=== PATIENT | male | born 1950 | race Caucasian/White ===

== ENCOUNTER 2022-08-19 20:51 | Inpatient (IN) | payer MEDICARE ==
[2022-08-19] MEDS ORDERED: SODIUM CHLORIDE 0.9% 1,000 ML IV ONE (21:36)
--- NOTE | 2022-08-19 21:46 | ED ---
General Adult HPI - General Chief complaint: Nausea/Vomiting/Diarrhea Stated complaint: Diarrhea Time Seen by Provider: 08/19/22 21:08 Source: patient Mode of arrival: EMS Limitations: physical limitation - History of Present Illness Initial comments: This is a 71-year-old male with a past medical history including congestive heart failure and baseline hypotension on Midodrine status post LifeVest as well as baseline atrial fibrillation on Eliquis presents emergency department via EMS for weakness. The patient stated that he has had nausea and vomiting and diarrhea over the last 5 days, with only one episode of nausea and vomiting but several episodes of diarrhea. The patient stated that he was weeks we came to the emergency department. The patient has not drank significant amount of water and feels as though he is dehydrated. The patient himself denied any shortness of breath or chest pain or any other acute symptoms at this time. The patient was resting in bed comfortably. The patient denied any recent sick contacts. - Related Data Home Medications Medication Instructions Recorded Confirmed Apixaban [Eliquis] 5 mg PO DIRECTED 08/19/22 08/19/22 Atorvastatin [Lipitor] 40 mg PO DAILY 08/19/22 08/19/22 Cetirizine HCl 10 mg PO DAILY 08/19/22 08/19/22 Cyanocobalamin [Vitamin B-12] 500 mcg PO DAILY 08/19/22 08/19/22 Furosemide [Lasix] 80 mg PO BID 08/19/22 08/19/22 Metoprolol Succinate (ER) [Toprol 50 mg PO BID 08/19/22 08/19/22 Xl] Midodrine HCl 7.5 mg PO TID 08/19/22 08/19/22 Montelukast [Singulair] 10 mg PO DAILY 08/19/22 08/19/22 Allergies Allergy/AdvReac Type Severity Reaction Status Date / Time morphine Allergy Unknown Verified 08/19/22 21:54 Review of Systems ROS Statement: Those systems with pertinent positive or pertinent negative responses have been documented in the HPI. ROS Other: All systems not noted in ROS Statement are negative. Past Medical History Past Medical History: Atrial Fibrillation, COPD, Diabetes Mellitus Additional Past Medical History / Comment(s): osteolmyelitis, SKIN CA History of Any Multi-Drug Resistant Organisms: None Reported Past Surgical History: Cholecystectomy Past Psychological History: No Psychological Hx Reported Smoking Status: Former smoker Past Alcohol Use History: None Reported Past Drug Use History: None Reported General Exam Limitations: no limitations General appearance: alert, in no apparent distress Head exam: Present: atraumatic, normocephalic, normal inspection Eye exam: Present: normal appearance, PERRL Pupils: Present: normal accommodation ENT exam: Present: normal exam, normal oropharynx, mucous membranes moist Neck exam: Present: normal inspection, full ROM Respiratory exam: Present: normal lung sounds bilaterally Cardiovascular Exam: Present: tachycardia, irregular rhythm, other (Lifevest in place) GI/Abdominal exam: Present: soft, normal bowel sounds Extremities exam: Present: normal inspection, full ROM Back exam: Present: normal inspection, full ROM Neurological exam: Present: alert, oriented X3, CN II-XII intact Psychiatric exam: Present: normal affect, normal mood Skin exam: Present: warm, dry Course Vital Signs 08/19/22 08/19/22 08/19/22 20:53 22:34 23:20 Temperature 97.4 F L Pulse Rate 128 H 123 H 100 Respiratory 18 18 16 Rate Blood Pressure 102/69 104/89 94/68 O2 Sat by Pulse 97 100 100 Oximetry EKG Findings - EKG Comments: EKG Findings:: An EKG was obtained and was interpreted by myself showing a rate of 129, QRS duration 143, QTC of 445. This EKG showed an atrial fibrillation with RVR. The patient does have a history of atrial fibrillation. There was however no ST segment elevation or depression that was noted however there was significant artifact secondary to the patient movement. Medical Decision Making - Medical Decision Making Was pt. sent in by a medical professional or institution (Dr. PA, CON[employer]YOR [employer]T INSTALLER, urgent care, hospital, or long-term...) When possible be specific @ -No Did you speak to anyone other than the patient for history (EMS, parent, family, police, friend...)? What history was obtained from this source @ -No Did you review nursing and triage notes (agree or disagree)? Why? @ -I reviewed and agree with nursing and triage notes Were old charts reviewed (outside hosp., previous admission, EMS record, old EKG, old radiological studies, urgent care reports/EKG's, long-term records)? Report findings @ -No old charts were reviewed Differential Diagnosis (chest pain, altered mental status, abdominal pain women, abdominal pain men, vaginal bleeding, weakness, fever, dyspnea, syncope, headache, dizziness, GI bleed, back pain, seizure, CVA, palpatations, mental health)? @ -Congestive heart failure exacerbation, ACS, dehydration EKG interpreted by me (3pts min.). @ -As above X-rays interpreted by me (1pt min.). @ -Chest x-ray was obtained and was interpreted by myself showing mild interstitial infiltrates and subsegmental atelectasis. There was no heart failure seen. CT interpreted by me (1pt min.). @ -None done U/S interpreted by me (1pt. min.). @ -None done What testing was considered but not performed or refused? (CT, X-rays, U/S, labs)? Why? @ -None What meds were considered but not given or refused? Why? @ -None Did you discuss the management of the patient with other professionals (stacy roberts i.e. , PA, CONVEYOR [employer]T INSTALLER, lab, RT, psych nurse, dialysis social worker, fabrics and material cutter, teacher, consumer loan officer, clinical case manager)? Give summary @ -Yes, admitting physician Was smoking cessation discussed for >3mins.? @ -No Was critical care preformed (if so, how long)? @ -Yes, see above Were there social determinants of health that impacted care today? How? (Homelessness, low income, unemployed, alcoholism, drug addiction, transportation, low edu. Level, literacy, decrease access to med. care, senior living, r ehab)? @ -No Was there de-escalation of care discussed even if they declined (Discuss DNR or withdrawal of care, Hospice)? DNR status @ -No What co-morbidities impacted this encounter? (DM, HTN, Smoking, COPD, CAD, Cancer, CVA, ARF, Chemo, Hep., AIDS, mental health diagnosis, sleep apnea, morbid obesity)? @ -Congestive heart failure with Lifevest, hypotension, atrial fibrillation Was patient admitted / discharged? Hospital course, mention meds given and route, prescriptions, significant lab abnormalities, going to OR and other pertinent info. @ -The patient was seen and evaluated in the emergency department. On physical exam, the patient was resting in bed without any acute distress. The patient did have intermittent tachycardia but was in nature fibrillation. The patient was not complaining of chest pain or shortness of breath. Laboratory workup inc luding a chest x-ray and EKG were obtained. Laboratory workup did show an elevated troponin as well as an elevated proBNP. The patient's potassium was low at 2.9 but was corrected in the emergency department. The patient did not have baseline laboratory workup as he is not seen at this hospital regularly. Because of the patient's significant past medical history in the setting of elevated troponin, the patient will be started on heparin and treated for an NSTEMI. The patient will be admitted for cardiology to evaluate and he was agreeable to this plan. The patient was admitted in stable condition. Undiagnosed new problem with uncertain prognosis? @ -No Drug Therapy requiring intensive monitoring for toxicity (Heparin, Nitro, Ins ulin, Cardizem)? @ -Yes, heparin Were any procedures done? @ -No Diagnosis/symptom? @ -NSTEMI Acute, or Chronic, or Acute on Chronic? @ -Acute Uncomplicated (without systemic symptoms) or Complicated (systemic symptoms)? @ -Complicated Side effects of treatment? @ -No Exacerbation, Progression, or Severe Exacerbation? @ -No Poses a threat to life or bodily function? How? (Chest pain, [place], [place], pneumonia, PE, COPD, DKA, ARF, appy, cholecystitis, CVA, Diverticulitis, Homicidal, Suicidal, threat to staff... and all critical care pts) @ -Yes, NSTEMI can lead to permanent cardiac damage and possible Diagnosis/symptom? @ -CHF exas Acute, or Chronic, or Acute on Chronic? @ -Acute on chronic Uncomplicated (without systemic symptoms) or Complicated (systemic symptoms)? @ -Complicated Side effects of treatment? @ -none Exacerbation, Progression, or Severe Exacerbation] @ -Exacerbation Poses a threat to life or bodily function? @ -Yes, worsening exacerbation can lead to permanent damage and possible . Diagnosis/symptom? @ -Hypokalemia Acute, or Chronic, or Acute on Chronic? @ -Acute Uncomplicated (without systemic symptoms) or Complicated (systemic symptoms)? @ -Uncomplicated Side effects of treatment? @ -none Exacerbation, Progression, or Severe Exacerbation] @ -no Poses a threat to life or bodily function? @ -Yes, abnormalities can cause cardiac dysrhythmias and possible - Lab Data Result diagrams: 08/19/22 21:38 08/19/22 21:38 Lab Results 08/19/22 08/19/22 08/19/22 Range/Units 21:38 21:38 21:38 WBC 7.8 (3.8-10.6) k/uL RBC 3.54 L (4.30-5.90) m/uL Hgb 10.3 L (13.0-17.5) gm/dL Hct 32.4 L (39.0-53.0) % MCV 91.3 (80.0-100.0) fL MCH 29.0 (25.0-35.0) pg MCHC 31.8 (31.0-37.0) g/dL RDW 17.3 H (11.5-15.5) % Plt Count 189 (150-450) k/uL MPV 9.1 Neutrophils % 87 % Lymphocytes % 6 % Monocytes % 6 % Eosinophils % 1 % Basophils % 0 % Neutrophils # 6.7 (1.3-7.7) k/uL Lymphocytes # 0.4 L (1.0-4.8) k/uL Monocytes # 0.4 (0-1.0) k/uL Eosinophils # 0.1 (0-0.7) k/uL Basophils # 0.0 (0-0.2) k/uL Anisocytosis Slight PT (9.0-12.0) sec INR (<1.2) APTT (22.0-30.0) sec Sodium 137 (137-145) mmol/L Potassium 2.9 L (3.5-5.1) mmol/L Chloride 102 (98-107) mmol/L Carbon Dioxide 27 (22-30) mmol/L Anion Gap 8 mmol/L BUN 79 H (9-20) mg/dL Creatinine 1.59 H (0.66-1.25) mg/dL Est GFR (CKD-EPI)AfAm 51 (>60 ml/min/1.73 sqM) Est GFR (CKD-EPI)NonAf 44 (>60 ml/min/1.73 sqM) Glucose 112 H (74-99) mg/dL Calcium 7.6 L (8.4-10.2) mg/dL Magnesium 1.6 (1.6-2.3) mg/dL Total Bilirubin 1.5 H (0.2-1.3) mg/dL AST 49 (17-59) U/L ALT 27 (4-49) U/L Alkaline Phosphatase 79 (38-126) U/L Troponin I 0.106 H* (0.000-0.034) ng/mL NT-Pro-B Natriuret Pep pg/mL Total Protein 5.9 L (6.3-8.2) g/dL Albumin 2.9 L (3.5-5.0) g/dL Lipase 67 (23-300) U/L 08/19/22 08/19/22 Range/Units 21:38 21:38 WBC (3.8-10.6) k/uL RBC (4.30-5.90) m/uL Hgb (13.0-17.5) gm/dL Hct (39.0-53.0) % MCV (80.0-100.0) fL MCH (25.0-35.0) pg MCHC (31.0-37.0) g/dL RDW (11.5-15.5) % Plt Count (150-450) k/uL MPV Neutrophils % % Lymphocytes % % Monocytes % % Eosinophils % % Basophils % % Neutrophils # (1.3-7.7) k/uL Lymphocytes # (1.0-4.8) k/uL Monocytes # (0-1.0) k/uL Eosinophils # (0-0.7) k/uL Basophils # (0-0.2) k/uL Anisocytosis PT 10.9 (9.0-12.0) sec INR 1.0 (<1.2) APTT 30.9 H (22.0-30.0) sec Sodium (137-145) mmol/L Potassium (3.5-5.1) mmol/L Chloride (98-107) mmol/L Carbon Dioxide (22-30) mmol/L Anion Gap mmol/L BUN (9-20) mg/dL Creatinine (0.66-1.25) mg/dL Est GFR (CKD-EPI)AfAm (>60 ml/min/1.73 sqM) Est GFR (CKD-EPI)NonAf (>60 ml/min/1.73 sqM) Glucose (74-99) mg/dL Calcium (8.4-10.2) mg/dL Magnesium (1.6-2.3) mg/dL Total Bilirubin (0.2-1.3) mg/dL AST (17-59) U/L ALT (4-49) U/L Alkaline Phosphatase (38-126) U/L Troponin I (0.000-0.034) ng/mL NT-Pro-B Natriuret Pep 76147 pg/mL Total Protein (6.3-8.2) g/dL Albumin (3.5-5.0) g/dL Lipase (23-300) U/L Critical Care Time Critical Care Time: Yes Total Critical Care Time: 35 Disposition Clinical Impression: NSTEMI (non-ST elevated myocardial infarction), Dehydration, CHF exacerbation, Hypokalemia Disposition: ADMITTED IP TO THIS [facility] Condition: Stable Is patient prescribed a controlled substance at d/c from ED?: No Referrals: Nonstaff,Physician [Primary Care Provider] - 1-2 days Time of Disposition: 23:00 Decision to Admit Reason: Admit from EC Decision Date: 08/20/22 Decision Time: 23:00
--- NOTE | 2022-08-19 22:41 | XR ---
EXAMINATION TYPE: XR chest 2V DATE OF EXAM: 08/19/2022 COMPARISON: NONE HISTORY: Weakness TECHNIQUE: 2 views FINDINGS: Heart is normal. There is no heart failure. There are chest leads. There is mild subsegment al atelectasis and interstitial density in the right lung. This is more in the right upper lobe. No p leural effusion. IMPRESSION: Mild interstitial infiltrate and subsegmental atelectasis. No heart failure seen.
[2022-08-19 23:22] LABS: Albumin 2.9 g/dL (3.5-5.0); Calcium 7.6 mg/dL (8.4-10.2); Magnesium 1.6 mg/dL (1.6-2.3); Total Bilirubin 1.5 mg/dL (0.2-1.3); Total Protein 5.9 g/dL (6.3-8.2)
[2022-08-19 23:24] LABS: Potassium 2.9 mmol/L (3.5-5.1)
[2022-08-19 23:25] LABS: Anisocytosis Slight; Basophils % (A) 0 %; Eosinophils # (A) 0.1 k/uL (0-0.7); Eosinophils % (A) 1 %; HCT 32.4 % (39.0-53.0); HGB 10.3 gm/dL (13.0-17.5); Lymphocytes # (A) 0.4 k/uL (1.0-4.8); Lymphocytes % (A) 6 %; MCHC 31.8 g/dL (31.0-37.0); MCV 91.3 fL (80.0-100.0); Mean Platelet Volume 9.1; Monocytes # (A) 0.4 k/uL (0-1.0); Monocytes % (A) 6 %; Neutrophils # (A) 6.7 k/uL (1.3-7.7); Neutrophils % (A) 87 %; Platelet Count 189 k/uL (150-450); RBC 3.54 m/uL (4.30-5.90); RDW 17.3 % (11.5-15.5); WBC 7.8 k/uL (3.8-10.6)
[2022-08-19 23:26] LABS: Partial Thromboplastin Time 30.9 sec (22.0-30.0); Prothrombin Time 10.9 sec (9.0-12.0)
[2022-08-20] MEDS ORDERED: HEPARIN SODIUM 1,000 UN/ML (10ML VL) IV PRN (00:13)
[2022-08-20] MEDS ORDERED: HEPARIN SOD,PORK IN 0.45% NACL 25,000 UNIT in 0.45% NACL 1 250ML.BAG IV SCH (00:15)
[2022-08-20] MEDS ORDERED: NALOXONE 0.4 MG/ML 1 ML VIAL IV PRN (00:21)
[2022-08-20] MEDS: POTASSIUM CHLORIDE 10 MEQ in WATER FOR INJECTION 1 100ML.BAG IVPB SCH ×4 (00:48→05:16)
--- NOTE | 2022-08-20 05:08 | P.HPIM ---
History of Present Illness H&P Date: 08/20/22 The patient is a 71-year-old male with a PMH of CHF (with LifeVest), A. fib on Eliquis, hypotension (on Midodrine), chronic L foot wounds, and hyperlipidemia who presents to the emergency room with complaints of diarrhea and generalized weakness. The patient reports that over the past 5 days, he has had very little oral intake due to watery diarrhea. Patient states that he is unable to tolerate even basic foods like crackers or any flavored drink. Reports that the diarrhea is nonbloody non-mucousy with no black tarry material. Denies any prior history of diarrhea. Denies experiencing abdominal pain but states that he does feel bloated prior to passing a bowel movement. States having multiple bowel movements initially 5 days ago but that he has managed to decrease them to one to twice a day as he is consuming very little food. Patient denied experiencing chest discomfort or shortness of breath. Also denied nausea or vomiting. Denies fever or chills. Laboratory evaluation in the emergency room was remarkable for proBNP 10,900, troponin 0.106, BUN 79, and creatinine 1.59. Review of systems: Pertinent positives and negatives as discussed in HPI, a complete review of systems was performed and all other systems are negative. Physical examination: Vital signs reviewed General: Thin chronically ill-appearing male, no distress, appears older than stated age, normal weight Derm: L foot lateral 2-3 cm stage 2 ulcer noted without drainage with dressings in place, warm Head: atraumatic, normocephalic, symmetric Eyes: EOMI, no lid lag, anicteric sclera, pupils equal round reactive to light ENT: Nose and ears atraumatic Neck: No cervical lymphadenopathy, trachea midline, supple Mouth: no lip lesion, mucus membranes dry Cardiovascular: S1S2 reg, no murmur, positive dorsalis pedis pulse bilateral, no edema, LifeVest in place Lungs: CTA bilateral, no rhonchi, no rales, no accessory muscle use Abdominal: soft, nontender to palpation, no guarding Ext: muscle strength 4 out of 5 in all 4 extremities grossly, no gross muscle atrophy, no contractures, Neuro: CN II-XI grossly intact, no gross focal neuro deficits Psych: Alert, oriented, appropriate affect Assessment: A. fib with RVR Elevated troponin Diarrhea Hypokalemia Kidney injury Imaging: Chest x-ray revealed mild interstitial infiltrate with no other acute abnormalities. EKG the emergency room revealed A. fib with RVR at 129 bpm. Data Review: Vital signs upon arrival at the emergency room were temperature 97.4F, pulse 128, BP 102/69, SpO2 97% on 3 L nasal cannula, and respiratory rate 18. Laboratory evaluation reviewed and remarkable for troponin 0.106, proBNP 10,900, BUN 79, creatinine 1.59, potassium 2.9, hemoglobin 10.3. Plan: Continue with heparin infusion for now Trend troponin Cardiology consulted Replace potassium and monitor Judicious use of IV fluids in setting of CHF history Obtain echocardiogram Monitor BMP Clear liquid diet DVT prophylaxis: Heparin infusion The patient is admitted with an anticipated greater than 2 midnight stay for evaluation of Afib with RVR CODE STATUS: Full Code Discussed with: Patient Anticipated discharge place: Home Past Medical History Past Medical History: Atrial Fibrillation, COPD, Diabetes Mellitus, Deep Vein Thrombosis (DVT), Pulmonary Embolus (PE) Additional Past Medical History / Comment(s): osteolmyelitis, SKIN CA; urinary retention History of Any Multi-Drug Resistant Organisms: None Reported Past Surgical History: Cholecystectomy Additional Past Surgical History / Comment(s): Lumbar back surgery Past Anesthesia/Blood Transfusion Reactions: Previous Problems w/ Anesthesia Additional Past Anesthesia/Blood Transfusion Reaction / Comment(s): "Hard to wake up" Past Psychological History: No Psychological Hx Reported Smoking Status: Former smoker Past Alcohol Use History: None Reported Past Drug Use History: None Reported - Past Family History Father Family Medical History: Diabetes Mellitus Medications and Allergies Home Medications Medication Instructions Recorded Confirmed Type Apixaban [Eliquis] 5 mg PO DIRECTED 08/19/22 08/19/22 History Atorvastatin [Lipitor] 40 mg PO DAILY 08/19/22 08/19/22 History Cetirizine HCl 10 mg PO DAILY 08/19/22 08/19/22 History Cyanocobalamin [Vitamin B-12] 500 mcg PO DAILY 08/19/22 08/19/22 History Furosemide [Lasix] 80 mg PO BID 08/19/22 08/19/22 History Metoprolol Succinate (ER) [Toprol 50 mg PO BID 08/19/22 08/19/22 History Xl] Midodrine HCl 7.5 mg PO TID 08/19/22 08/19/22 History Montelukast [Singulair] 10 mg PO DAILY 08/19/22 08/19/22 History Allergies Allergy/AdvReac Type Severity Reaction Status Date / Time morphine Allergy Unknown Verified 08/19/22 21:54 Physical Exam Vitals: Vital Signs Temp Pulse Pulse Resp BP BP Pulse Ox 08/20/22 01:18 97.4 F L 125 H 14 110/68 100 08/20/22 00:59 105 H 18 102/77 100 08/19/22 23:20 100 16 94/68 100 08/19/22 22:34 123 H 18 104/89 100 08/19/22 20:53 97.4 F L 128 H 18 102/69 97 Intake and Output 08/19/22 08/19/22 08/20/22 14:59 22:59 07:59 Other: Weight 68.039 kg 68.039 kg Results CBC & Chem 7: 08/19/22 21:38 08/19/22 21:38 Labs: Abnormal Lab Results - Last 24 Hours (Table) 08/19/22 08/19/22 08/19/22 Range/Units 21:38 21:38 21:38 RBC 3.54 L (4.30-5.90) m/uL Hgb 10.3 L (13.0-17.5) gm/dL Hct 32.4 L (39.0-53.0) % RDW 17.3 H (11.5-15.5) % Lymphocytes # 0.4 L (1.0-4.8) k/uL APTT (22.0-30.0) sec Potassium 2.9 L (3.5-5.1) mmol/L BUN 79 H (9-20) mg/dL Creatinine 1.59 H (0.66-1.25) mg/dL Glucose 112 H (74-99) mg/dL Calcium 7.6 L (8.4-10.2) mg/dL Total Bilirubin 1.5 H (0.2-1.3) mg/dL Troponin I 0.106 H* (0.000-0.034) ng/mL Total Protein 5.9 L (6.3-8.2) g/dL Albumin 2.9 L (3.5-5.0) g/dL 08/19/22 Range/Units 21:38 RBC (4.30-5.90) m/uL Hgb (13.0-17.5) gm/dL Hct (39.0-53.0) % RDW (11.5-15.5) % Lymphocytes # (1.0-4.8) k/uL APTT 30.9 H (22.0-30.0) sec Potassium (3.5-5.1) mmol/L BUN (9-20) mg/dL Creatinine (0.66-1.25) mg/dL Glucose (74-99) mg/dL Calcium (8.4-10.2) mg/dL Total Bilirubin (0.2-1.3) mg/dL Troponin I (0.000-0.034) ng/mL Total Protein (6.3-8.2) g/dL Albumin (3.5-5.0) g/dL Thrombosis Risk Factor Assmnt - Choose All That Apply Any of the Below Risk Factors Present?: No Other Risk Factors: Yes Each Risk Factor Represents 2 Points: Age 61-74 years Each Risk Factor Represents 3 Points: History of DVT/PE Other congenital or acquired thrombophilia - If yes, enter type in comment: No Thrombosis Risk Factor Assessment Total Risk Factor Score: 5 Thrombosis Risk Factor Assessment Level: High Risk
[2022-08-20 05:30] LABS: Calcium 7.8 mg/dL (8.4-10.2); Potassium 3.1 mmol/L (3.5-5.1)
[2022-08-20 06:56] LABS: Glucose,Whole Blood 97 mg/dL (70-110)
[2022-08-20] MEDS: INSULIN ASPART (NovoLOG) 100 UNIT/ML VIAL SQ SCH ×4 (06:57→21:33)
[2022-08-20] MEDS: MONTELUKAST 10 MG TAB PO SCH (08:59)
[2022-08-20] MEDS: FUROSEMIDE 80 MG TAB PO SCH ×2 (08:59→21:36)
[2022-08-20] MEDS: CYANOCOBALAMIN 500 MCG TAB PO SCH (08:59)
[2022-08-20] MEDS: MIDODRINE 5 MG TAB PO SCH ×3 (08:59→21:36)
[2022-08-20] MEDS: ATORVASTATIN 40 MG TAB PO SCH (08:59)
[2022-08-20] MEDS ORDERED: METOPROLOL SUCCINATE (ER) 50 MG TAB.ER.24H PO SCH (09:00)
[2022-08-20] MEDS: POTASSIUM CHLORIDE ER 20 MEQ TAB.ER PO SCH ×2 (10:12→12:28)
--- NOTE | 2022-08-20 10:32 | P.CRDCN ---
History of Present Illness Consult date: 08/20/22 History of present illness: History of Present Illness: The patient is a 71-year-old male with known history of cardiomyopathy, appears to be nonischemic, persistent atrial fibrillation, followed at [facility], has a life vest and is being evaluated to undergo ICD implantation who presented with symptoms of diarrhea for about 7 days, worsening fatigue and lack of energy. He had one episode of nausea and vomiting. He denies any GI bleeding. He has no chest discomfort, palpitation or change in his breathing status. According to him he had no obstructive disease by cardiac catheterization although he is vague about his history. It is unclear if the at rial fibrillation has been going on for a time. On presentation he was in atrial fibrillation with rapid ventricular response. He had minimal elevation of the troponin. He's feeling better this morning. He has a known history of nonhealing ulcer on the left foot. He has a prior history of smoking and hyperlipidemia and diabetes. His blood pressure is on the low side. Medications: Singulair 10 mg daily, Toprol-XL 50 mg twice a day, Lipitor 40 mg daily, midodrine 7.5 mg 3 times a day, Lasix 80 mg twice a day,Eliquis 5 mg twice a day Review of Systems: Respiratory: Has a history of chronic dyspnea on exertion but no recent wheezing, cough GI: Mild nausea or vomiting . He has diarrhea for the last 7 days. No history of peptic ulcer disease. No recent GI bleed. : No hematuria or dysuria. Nervous System: No stroke or seizure. Physical Examination: 71-year-old male, alert oriented appears to be older than stated age,Blood pressure 102/60, Heart rate 110-120 Head: Normocephalic. Eyes: Sclerae nonicteric. Neck: Good carotid upstroke, no bruit, no jugular venous distention. Lungs: Clear to auscultation. Heart: Irregular rate and rhythm, S1-S2, no S3, no rub. Systolic murmur at the apex Abdomen: Soft nontender, positive bowel sounds no organomegaly. Extremities: No edema, decrease distal pulses. Dressing on the left foot Labs: Troponin 0.106, 0.108, potassium on admission 2.9 up to 3.2 today. BUN 69, creatinine 1.42. NT proBNP 10,900. Hemoglobin 10.3. Chest x-ray with no infiltrate EKG: Atrial fibrillation with nonspecific ST-T wave changes Impression: 1. Diarrhea with possible dehydration, etiology unclear, workup in progress 2. History of cardiomyopathy, appears to be nonischemic. Patient has LifeVest and has been followed at [facility] 3. Chronic permanent atrial fibrillation, anticoagulated with episode of rapid ventricle response could be worsened by the diarrhea 4. Troponin elevation, representing type II event, no evidence of acute cor onary syndrome 5. Abnormal renal function, duration unknown 6. History of diabetes 7. History of hyperlipidemia Plan: 1. Stop IV heparin and start oral anticoagulation 2. Increase beta carlitos 3. Add Farxiga 10 mg daily 4. Obtain an echocardiogram with Doppler 5. Follow renal functions 6. Obtain records from [facility] 7. Depending on his progress further recommendations will be made, thank you for this consult we will follow with you Past Medical History Past Medical History: Atrial Fibrillation, COPD, Diabetes Mellitus, Deep Vein Th rombosis (DVT), Pulmonary Embolus (PE) Additional Past Medical History / Comment(s): osteolmyelitis, SKIN CA; urinary retention History of Any Multi-Drug Resistant Organisms: None Reported Past Surgical History: Cholecystectomy Additional Past Surgical History / Comment(s): Lumbar back surgery Past Anesthesia/Blood Transfusion Reactions: Previous Problems w/ Anesthesia Additional Past Anesthesia/Blood Transfusion Reaction / Comment(s): "Hard to w nicolas up" Past Psychological History: No Psychological Hx Reported Smoking Status: Former smoker Past Alcohol Use History: None Reported Past Drug Use History: None Reported - Past Family History Father Family Medical History: Diabetes Mellitus Medications and Allergies Home Medications Medication Instructions Recorded Confirmed Type Apixaban [Eliquis] 5 mg PO DIRECTED 08/19/22 08/19/22 History Atorvastatin [Lipitor] 40 mg PO DAILY 08/19/22 08/19/22 History Cetirizine HCl 10 mg PO DAILY 08/19/22 08/19/22 History Cyanocobalamin [Vitamin B-12] 500 mcg PO DAILY 08/19/22 08/19/22 History Furosemide [Lasix] 80 mg PO BID 08/19/22 08/19/22 History Metoprolol Succinate (ER) [Toprol 50 mg PO BID 08/19/22 08/19/22 History Xl] Midodrine HCl 7.5 mg PO TID 08/19/22 08/19/22 History Montelukast [Singulair] 10 mg PO DAILY 08/19/22 08/19/22 History Allergies Allergy/AdvReac Type Severity Reaction Status Date / Time morphine Allergy Unknown Verified 08/19/22 21:54 Physical Exam Vitals: Vital Signs Temp Pulse Pulse Resp BP BP Pulse Ox 08/20/22 08:09 99 08/20/22 08:00 97.7 F 126 H 18 91/70 96 08/20/22 04:00 97.8 F 116 H 14 102/61 99 08/20/22 01:18 97.4 F L 125 H 14 110/68 100 08/20/22 00:59 105 H 18 102/77 100 08/19/22 23:20 100 16 94/68 100 08/19/22 22:34 123 H 18 104/89 100 08/19/22 20:53 97.4 F L 128 H 18 102/69 97 Intake and Output 08/19/22 08/20/22 08/20/22 21:59 06:59 14:59 Intake Total 162.054 Output Total Balance 162.054 Intake: Intake, IV Titration 44.054 Amount Heparin Sod,Pork in 0.45% 44.054 NaCl 25,000 unit In 0.45 % NaCl 1 250ml.bag @ 18 UNITS/KG/HR 12.247 mls/hr IV .[id number] [facility] Rx#: [id number] Oral 118 Output: Urine Other: Voiding Method Indwelling Catheter # Bowel Movements Weight Results 08/19/22 21:38 08/20/22 07:43 Cardiac Enzymes 08/19/22 08/19/22 08/20/22 Range/Units 21:38 21:38 05:38 AST 49 (17-59) U/L Troponin I 0.106 H* 0.108 H* (0.000-0.034) ng/mL Coagulation 08/19/22 08/20/22 08/20/22 Range/Units 21:38 04:28 07:43 PT 10.9 (9.0-12.0) sec APTT 30.9 H 88.2 H 135.3 H* (22.0-30.0) sec CBC 08/19/22 Range/Units 21:38 WBC 7.8 (3.8-10.6) k/uL RBC 3.54 L (4.30-5.90) m/uL Hgb 10.3 L (13.0-17.5) gm/dL Hct 32.4 L (39.0-53.0) % Plt Count 189 (150-450) k/uL Comprehensive Metabolic Panel 08/19/22 08/20/22 08/20/22 Range/Units 21:38 04:28 07:43 Sodium 137 140 (137-145) mmol/L Potassium 2.9 L 3.1 L 3.2 L (3.5-5.1) mmol/L Chloride 102 108 H (98-107) mmol/L Carbon Dioxide 27 22 (22-30) mmol/L BUN 79 H 69 H (9-20) mg/dL Creatinine 1.59 H 1.42 H (0.66-1.25) mg/dL Glucose 112 H 81 (74-99) mg/dL Calcium 7.6 L 7.8 L (8.4-10.2) mg/dL AST 49 (17-59) U/L ALT 27 (4-49) U/L Alkaline Phosphatase 79 (38-126) U/L Total Protein 5.9 L (6.3-8.2) g/dL Albumin 2.9 L (3.5-5.0) g/dL Current Medications Generic Name Dose Route Start Last Admin Trade Name Freq PRN Reason Stop Dose Admin Apixaban 5 mg 08/20/22 10:30 Apixaban 5 Mg Tab PO BID [facility] Protocol Atorvastatin Calcium 40 mg 08/20/22 09:00 08/20/22 08:59 Atorvastatin 40 Mg Tab PO 40 mg DAILY [facility] Administration Cyanocobalamin 500 mcg 08/20/22 09:00 08/20/22 08:59 Cyanocobalamin 500 Mcg Tab PO 500 mcg DAILY [facility] Administration Dapagliflozin 10 mg 08/20/22 10:30 Dapagliflozin Propanediol 10 Mg Tablet PO DAILY [facility] Furosemide 80 mg 08/20/22 09:00 08/20/22 08:59 Furosemide 80 Mg Tab PO 80 mg BID [facility] Administration Insulin Aspart 0 unit 08/20/22 07:30 08/20/22 06:57 Insulin Aspart (Novolog) 100 Unit/Ml Vial SQ Not Given ACHS [facility] Protocol Metoprolol Succinate 50 mg 08/20/22 16:00 Metoprolol Succinate (Er) 50 Mg Tab.Er.24h PO TID [facility] Midodrine 7.5 mg 08/20/22 09:00 08/20/22 08:59 Midodrine 5 Mg Tab PO 7.5 mg TID [facility] Administration Montelukast Sodium 10 mg 08/20/22 09:00 08/20/22 08:59 Montelukast 10 Mg Tab PO 10 mg DAILY [facility] Administration Naloxone HCl 0.2 mg 08/20/22 00:21 Naloxone 0.4 Mg/Ml 1 Ml Vial IV Q2M PRN Opioid Reversal Potassium Chloride 40 meq 08/20/22 10:00 08/20/22 10:12 Potassium Chloride Er 20 Meq Tab.Er PO 08/20/22 12:01 40 meq Q2HR [facility] Administration Intake and Output 08/19/22 08/20/22 08/20/22 21:59 06:59 14:59 Intake Total 162.054 Output Total Balance 162.054 Intake: Intake, IV Titration 44.054 Amount Heparin Sod,Pork in 0.45% 44.054 NaCl 25,000 unit In 0.45 % NaCl 1 250ml.bag @ 18 UNITS/KG/HR 12.247 mls/hr IV .[id number] [facility] Rx#: [id number] Oral 118 Output: Urine Other: Voiding Method Indwelling Catheter # Bowel Movements Weight 08/19/22 21:38 08/20/22 07:43
[2022-08-20] MEDS: APIXABAN 5 MG TAB PO SCH ×2 (10:50→21:36)
[2022-08-20] MEDS: DAPAGLIFLOZIN PROPANEDIOL 10 MG TABLET PO SCH (10:50)
[2022-08-20 12:30] LABS: Glucose,Whole Blood 96 mg/dL (70-110)
[2022-08-20] MEDS: METOPROLOL SUCCINATE (ER) 50 MG TAB.ER.24H PO SCH ×2 (15:53→21:36)
[2022-08-20 16:25] LABS: Glucose,Whole Blood 121 mg/dL (70-110)
[2022-08-20 20:57] LABS: Glucose,Whole Blood 135 mg/dL (70-110)
[2022-08-21 06:02] LABS: Glucose,Whole Blood 139 mg/dL (70-110)
[2022-08-21] MEDS: INSULIN ASPART (NovoLOG) 100 UNIT/ML VIAL SQ SCH ×4 (06:09→21:59)
[2022-08-21 06:22] LABS: Anisocytosis Slight; Basophils % (A) 1 %; Eosinophils # (A) 0.1 k/uL (0-0.7); Eosinophils % (A) 1 %; HCT 36.7 % (39.0-53.0); HGB 11.5 gm/dL (13.0-17.5); Hypochromasia Slight; Lymphocytes # (A) 0.7 k/uL (1.0-4.8); Lymphocytes % (A) 9 %; MCH 28.4 pg (25.0-35.0); MCHC 31.3 g/dL (31.0-37.0); MCV 90.9 fL (80.0-100.0); Mean Platelet Volume 8.3; Monocytes # (A) 0.4 k/uL (0-1.0); Monocytes % (A) 5 %; Neutrophils # (A) 6.7 k/uL (1.3-7.7); Neutrophils % (A) 83 %; Platelet Count 219 k/uL (150-450); RBC 4.03 m/uL (4.30-5.90); RDW 17.4 % (11.5-15.5)
[2022-08-21 06:47] LABS: Calcium 8.1 mg/dL (8.4-10.2); Potassium 4.5 mmol/L (3.5-5.1)
[2022-08-21] MEDS: APIXABAN 5 MG TAB PO SCH ×2 (08:21→21:58)
[2022-08-21] MEDS: METOPROLOL SUCCINATE (ER) 50 MG TAB.ER.24H PO SCH (08:21)
[2022-08-21] MEDS: MIDODRINE 5 MG TAB PO SCH ×3 (08:21→16:36)
[2022-08-21] MEDS: DAPAGLIFLOZIN PROPANEDIOL 10 MG TABLET PO SCH (08:21)
[2022-08-21] MEDS: FUROSEMIDE 80 MG TAB PO SCH ×2 (08:21→21:58)
[2022-08-21] MEDS: ATORVASTATIN 40 MG TAB PO SCH (08:21)
[2022-08-21] MEDS: MONTELUKAST 10 MG TAB PO SCH (08:22)
[2022-08-21] MEDS: CYANOCOBALAMIN 500 MCG TAB PO SCH (08:22)
[2022-08-21] MEDS: METOPROLOL TARTRATE 50 MG TAB PO SCH ×3 (10:13→22:00)
[2022-08-21] MEDS: SPIRONOLACTONE 25 MG TAB PO SCH (10:13)
--- NOTE | 2022-08-21 10:17 | P.PN ---
Subjective Progress Note Date: 08/21/22 Patient reports breathing is improved today. A. fib is under better control. Getting an echo during my assessment. Diarrhea is better controlled. Gen: awake, alert HEENT: normocephalic, atraumatic, good hearing acuity, moist mucous membranes Resp: good air exchange, breathing comfortably with no accessory muscle use CVS: good distal perfusion x 4, GI: soft, NTTP, ND : no SPT, no CVAT, hatfield catheter is present MSK: no pitting edema, no clubbing Neuro: non-focal, moving all extremities Psych: cooperative, euthymic mood Hospital course: The patient is a 71-year-old male with a PMH of CHF (with LifeVest), A. fib on Eliquis, hypotension (on Midodrine), chronic L foot wounds, and hyperlipidemia who presented to the emergency room with complaints of diarrhea and generalized weakness. Vital signs upon arrival at the emergency room were temperature 97.4F, pulse 128, BP 102/69, SpO2 97% on 3 L nasal cannula, and respiratory rate 18. Laboratory evaluation reviewed and remarkable for troponin 0.106, proBNP 10,900, BUN 79, creatinine 1.59, potassium 2.9, hemoglobin 10.3. Chest x- ray revealed mild interstitial infiltrate with no other acute abnormalities. EKG the emergency room revealed A. fib with RVR at 129 bpm. case was discussed with emergency room physician and decision was made to admit the patient for further evaluation. Patient was seen in consultation with cardiology. Assessment: A. fib with RVR Elevated troponin Diarrhea Hypokalemia Kidney injury Plan: Patient is afebrile, 113/74, heart rate 119, 94% on 2 L nasal cannula, which is his baseline oxygen requirement. CBC today shows anemia down to 11.5, otherwise on markable. Chemistries show chloride of 109, bicarb of 20, BUN of 51, creatinine 1.51. BNP is 13,700, increased from 10,000 Blood sugars have ranged between 121-139 Cardiology note reviewed, they agree with diuretics, obtaining an echo, rate control strategy Heparin drip was discontinued and transitioned to Apixiban 5 mg by mouth twice a day Continue metoprolol 50 mg 3 times a day Continue atorvastatin 40 mg daily Start farxiga 10 mg daily Continue spironolactone 12.5 g daily The patient is admitted with an anticipated greater than 2 midnight stay for evaluation of Afib with RVR CODE STATUS: Full Code Discussed with: Patient Anticipated discharge place: Home Objective - Vital Signs Vital signs: Vital Signs Temp 97.5 F L 08/21/22 08:11 Pulse 119 H 08/21/22 09:32 Resp 18 08/21/22 09:32 BP 113/74 08/21/22 08:11 Pulse Ox 95 08/21/22 08:57 FiO2 Intake & Output 08/20/22 08/21/22 08/21/22 18:59 06:59 18:59 Intake Total 610.054 200 220 Output Total 750 400 500 Balance -139.946 -200 -280 Weight 62 kg Intake: Intake, IV Titration 44.054 Amount Heparin Sod,Pork in 0.45% 44.054 NaCl 25,000 unit In 0.45 % NaCl 1 250ml.bag @ 18 UNITS/KG/HR 12.247 mls/hr IV .[id number] [facility] Rx#: [id number] Oral 566 200 220 Output: Urine 750 400 500 Other: Voiding Method Indwelling Catheter Indwelling Catheter Indwelling Catheter - Labs CBC & Chem 7: 08/21/22 05:53 08/21/22 05:53 Labs: Abnormal Lab Results - Last 24 Hours (Table) 08/20/22 08/20/22 08/20/22 Range/Units 09:56 15:58 16:23 RBC (4.30-5.90) m/uL Hgb (13.0-17.5) gm/dL Hct (39.0-53.0) % RDW (11.5-15.5) % Lymphocytes # (1.0-4.8) k/uL APTT 30.9 H (22.0-30.0) sec Chloride (98-107) mmol/L Carbon Dioxide (22-30) mmol/L BUN (9-20) mg/dL Creatinine (0.66-1.25) mg/dL Glucose (74-99) mg/dL POC Glucose (mg/dL) 121 H (70-110) mg/dL Calcium (8.4-10.2) mg/dL Troponin I 0.102 H* (0.000-0.034) ng/mL 08/20/22 08/21/22 08/21/22 Range/Units 20:55 05:53 05:53 RBC 4.03 L (4.30-5.90) m/uL Hgb 11.5 L (13.0-17.5) gm/dL Hct 36.7 L (39.0-53.0) % RDW 17.4 H (11.5-15.5) % Lymphocytes # 0.7 L (1.0-4.8) k/uL APTT (22.0-30.0) sec Chloride 109 H (98-107) mmol/L Carbon Dioxide 20 L (22-30) mmol/L BUN 51 H (9-20) mg/dL Creatinine 1.51 H (0.66-1.25) mg/dL Glucose 123 H (74-99) mg/dL POC Glucose (mg/dL) 135 H (70-110) mg/dL Calcium 8.1 L (8.4-10.2) mg/dL Troponin I (0.000-0.034) ng/mL 08/21/22 Range/Units 06:00 RBC (4.30-5.90) m/uL Hgb (13.0-17.5) gm/dL Hct (39.0-53.0) % RDW (11.5-15.5) % Lymphocytes # (1.0-4.8) k/uL APTT (22.0-30.0) sec Chloride (98-107) mmol/L Carbon Dioxide (22-30) mmol/L BUN (9-20) mg/dL Creatinine (0.66-1.25) mg/dL Glucose (74-99) mg/dL POC Glucose (mg/dL) 139 H (70-110) mg/dL Calcium (8.4-10.2) mg/dL Troponin I (0.000-0.034) ng/mL
--- NOTE | 2022-08-21 10:49 | CA ---
Transthoracic Echo Report Name: Raji Hernandes Age: 71 Gender: M : 1950 Exam Date: 08/21/2022 08:00 Exam Location: [place] [facility] Ht (in): Wt (lb): Ordering Physician: Sharlene Lagunas MD Attending/Referring Phys: Constitutional Law Professor Chuck Holcomb RDCS Procedure CPT: Indications: chf Cardiac Hx: Technical Quality: Fair Contrast 1: Total Dose (mL): Contrast 2: Total Dose (mL): MEASUREMENTS (Male / Female) Normal Values 2D ECHO LA Volume 47.5 cm??? 18 - 58 / 22 - 52 cm??? M-MODE Aortic Root Diameter MM 2.5 cm AV Cusp Separation MM 1.2 cm DOPPLER AV Peak Velocity 106.3 cm/s AV Peak Gradient 4.5 mmHg LVOT Peak Velocity 43.1 cm/s LVOT Peak Gradient 0.7 mmHg MR Peak Velocity 484.1 cm/s MR Peak Gradient 93.7 mmHg TR Peak Velocity 329.3 cm/s TR Peak Gradient 43.4 mmHg Right Atrial Pressure 15.0 mmHg Pulmonary Artery Systolic Pressu 58.4 mmHg Right Ventricular Systolic Press 58.4 mmHg FINDINGS Left Ventricle Left ventricular wall thickness at upper limits of normal. Left ventricular cavity size normal. Severe diastolic dysfunction. Left ventricular ejection fraction is estimated at 20 %. Right Ventricle Normal right ventricular size. Severely reduced right ventricular global systolic function. Severe pulmonary hypertension. Right Atrium Normal right atrial size. Left Atrium Normal left atrial size. Mitral Valve Mitral valve thickened. Moderate to severe mitral regurgitation. Posteriorly directed mitral regurgitation jet. Aortic Valve Trileaflet aortic valve. No aortic regurgitation. No aortic stenosis. Tricuspid Valve Moderate tricuspid regurgitation. Pulmonic Valve Pulmonic valve not well visualized. Pericardium Minimal pericardial effusion (normal variant). No pleural effusion. Aorta Normal size aortic root and proximal ascending aorta. CONCLUSIONS Severe LV systolic dysfunction with EF of 20% with global hypokinesia Moderate to severe mitral regurgitation likely related to LV dysfunction Previewed by: Dr. Elton Christianson MD (Electronically Signed) Final Date: 21 August 2022 10:48
[2022-08-21 12:06] LABS: Glucose,Whole Blood 146 mg/dL (70-110)
--- NOTE | 2022-08-21 16:30 | PN ---
PROGRESS NOTE SUBJECTIVE: Mr. Hernandes is in persistent atrial fibrillation. This gentleman has a LifeVest. His healthcare from a cardiac standpoint is at [facility]. He has what seems to be nonischemic cardiomyopathy, comes in with atrial fibrillation, increased rate. Rate is still somewhat faster. I am recommending that we decrease his midodrine to 5 mg t.i.d., increase the metoprolol tartrate to [address]., and place him on Aldactone 12.5 mg daily. OBJECTIVE: NECK: JVD is 1 cm. No carotid bruit. HEART: S1 and S2 with irregularity in rhythm. Short systolic murmur. LUNGS: Reveal fair air entry. ABDOMEN: Unchanged. LOWER EXTREMITIES: Unchanged. PROGNOSIS: Remains guarded. MMHERMELINDOL / IJN: [id number] /
[2022-08-21 17:12] LABS: Glucose,Whole Blood 120 mg/dL (70-110)
[2022-08-21 19:42] LABS: Glucose,Whole Blood 176 mg/dL (70-110)
[2022-08-22 05:49] LABS: Glucose,Whole Blood 127 mg/dL (70-110)
[2022-08-22] MEDS: INSULIN ASPART (NovoLOG) 100 UNIT/ML VIAL SQ SCH ×4 (06:08→20:53)
[2022-08-22] MEDS: MIDODRINE 5 MG TAB PO SCH ×3 (07:04→17:29)
[2022-08-22] MEDS: DAPAGLIFLOZIN PROPANEDIOL 10 MG TABLET PO SCH (09:40)
[2022-08-22] MEDS: SPIRONOLACTONE 25 MG TAB PO SCH (09:40)
[2022-08-22] MEDS: APIXABAN 5 MG TAB PO SCH ×2 (09:40→20:07)
[2022-08-22] MEDS: MONTELUKAST 10 MG TAB PO SCH (09:40)
[2022-08-22] MEDS: FUROSEMIDE 80 MG TAB PO SCH ×2 (09:41→20:07)
[2022-08-22] MEDS: METOPROLOL TARTRATE 50 MG TAB PO SCH (09:41)
[2022-08-22] MEDS: CYANOCOBALAMIN 500 MCG TAB PO SCH (09:41)
[2022-08-22] MEDS: ATORVASTATIN 40 MG TAB PO SCH (09:41)
--- NOTE | 2022-08-22 10:49 | P.PN ---
Subjective Progress Note Date: 08/22/22 Patient has no new complaints today Gen: awake, alert HEENT: normocephalic, atraumatic, good hearing acuity, moist mucous membranes Resp: good air exchange, breathing comfortably with no accessory muscle use CVS: good distal perfusion x 4, GI: soft, NTTP, ND : no SPT, no CVAT, hatfield catheter is present MSK: no pitting edema, no clubbing Neuro: non-focal, moving all extremities Psych: cooperative, euthymic mood Hospital course: The patient is a 71-year-old male with a PMH of CHF (with LifeVest), A. fib on Eliquis, hypotension (on Midodrine), chronic L foot wounds, and hyperlipidemia who presented to the emergency room with complaints of diarrhea and generalized weakness. Vital signs upon arrival at the emergency room were temperature 97.4F, pulse 128, BP 102/69, SpO2 97% on 3 L nasal cannula, and respiratory rate 18. Laboratory evaluation reviewed and remarkable for troponin 0.106, proBNP 10,900, BUN 79, creatinine 1.59, potassium 2.9, hemoglobin 10.3. Chest x- ray revealed mild interstitial infiltrate with no other acute abnormalities. EKG the emergency room revealed A. fib with RVR at 129 bpm. case was discussed with emergency room physician and decision was made to admit the patient for further evaluation. Patient was seen in consultation with cardiology. Assessment: A. fib with RVR Elevated troponin Diarrhea Hypokalemia Kidney injury Plan: Patient is afebrile, 112/68, heart rate 110, 93% on 2 L nasal cannula. Blood sugars have ranged between 120-176 Case discussed with cardiology, they recommend increasing metoprolol, starting Aldactone, decreasing his Midodrine Echocardiogram shows severely decreased ejection fraction at 20% with global hypokinesia, diastolic dysfunction, severe pulmonary hypertension, moderate to severe mitral regurgitation CBC, basic metabolic panel, magnesium ordered for tomorrow Continue Apixiban 5 mg by mouth twice a day Increased metoprolol to 75 mg 3 times a day from 50 mg 3 times a day Continue atorvastatin 40 mg daily Continue farxiga 10 mg daily Continue spironolactone 12.5 g daily Decreased Midodrine to 5 mg 3 times a day from 7.5 mg 3 times a day The patient is admitted with an anticipated greater than 2 midnight stay for evaluation of Afib with RVR CODE STATUS: Full Code Discussed with: Patient Anticipated discharge place: Home Objective - Vital Signs Vital signs: Vital Signs Temp 97.4 F L 08/22/22 09:35 Pulse 110 H 08/22/22 09:35 Resp 16 08/22/22 09:35 BP 112/68 08/22/22 09:35 Pulse Ox 93 L 08/22/22 09:35 FiO2 Intake & Output 08/21/22 08/22/22 08/22/22 18:59 06:59 18:59 Intake Total 460 118 Output Total 800 500 Balance -340 -382 Weight 61.5 kg Intake: Oral 460 118 Output: Urine 800 500 Other: Voiding Method Indwelling Catheter Indwelling Catheter Indwelling Catheter - Labs CBC & Chem 7: 08/21/22 05:53 08/21/22 05:53 Labs: Abnormal Lab Results - Last 24 Hours (Table) 08/21/22 08/21/22 08/21/22 Range/Units 11:51 17:09 19:41 POC Glucose (mg/dL) 146 H 120 H 176 H (70-110) mg/dL 08/22/22 Range/Units 05:48 POC Glucose (mg/dL) 127 H (70-110) mg/dL
[2022-08-22 11:41] LABS: Glucose,Whole Blood 160 mg/dL (70-110)
--- NOTE | 2022-08-22 12:29 | CDI ---
Documentation Clarification Form Date: 08/22/2022 12:10:30 PM From: Shaye Freeman RN CCDS Phone: [phone] Admit Date: 08/20/2022 12:21:00 AM Patient Name: Raji Hernandes Visit Number: [id number] Discharge Date: ATTENTION: The Clinical Documentation Specialists (CDI) and [facility] Coding Staff appreciate your assistance in clarifying documentation. Please respond to the clarification below the line at the bottom and electronically sign. The CDI & [facility] Coding staff will review the response and follow-up if needed. Please note: Queries are made part of the Legal Health Record. If you have any questions, please contact the author of this message via ITS. Dr. Sharlene Lagunas Type 2 Event is documented 08/20, Cardiology consult. Additional clarification regarding the etiology of the Type 2 Event is requested. Patient History/Risk Factors: 71-year-old male presents to the ED with symptoms of diarrhea for about seven days and worsening fatigue. Medical History: Nonischemic Cardiomyopathy, persistent atrial fibrillation, Life vest being evaluated to undergo ICD implantation. COPD, DM, DVT and PE. 08/20, Cardiology consult. Clinical Indicators: Troponin: 0.106; 0.108; 0.102 EKG Results:08/20 Atrial Fibrillation with Rapid Ventricular Response Right bundle branch block, Probable setpal myocardial infarction of indeterminate age Moderate T wave abnormality Labs, 08/19: Potassium 2.9, Bun 79, Cr 1.59, Calcium 7.6 Treatment: 08/19 0.9NS 1L bolus, Potassium Chl IVPB x 4 bags; 08/20 K-Dur 20 PO Q 12 x 2 doses; 08/20 08/21 Toprol XL 50mg PO TID; 08/21 08/22 Lopressor 50mg PO TID; 08/22 Lopressor 75mg PO TID. 08/20 Eliquis 5mg PO BID Please clarify of Type 2 Event, if known: [ ] Type 2 ME due to Atrial Fibrillation RVR [ ] Type 2 ME due to other (please specify ) [ xx] Unable to determine [ ] Other Condition, please specify (Template Last Revised: August 2020) MTDD
--- NOTE | 2022-08-22 12:50 | CDI ---
Documentation Clarification Form Date: 08/22/2022 12:35:48 PM From: Shaye Freeman RN CCDS Phone: [phone] Admit Date: 08/20/2022 12:21:00 AM Patient Name: Raji Hernandes Visit Number: [id number] Discharge Date: ATTENTION: The Clinical Documentation Specialists (CDI) and [facility] Coding Staff appreciate your assistance in clarifying documentation. Please respond to the clarification below the line at the bottom and electronically sign. The CDI & [facility] Coding staff will review the response and follow-up if needed. Please note: Queries are made part of the Legal Health Record. If you have any questions, please contact the author of this message via ITS. Dr. Shun Owens Your patient has the documented diagnosis of nonischemic cardiomyopathy, 08/21, Cardiology note. Additional information regarding the cardiomyopathy is requested. Patient History/Risk Factors: 71-year-old male presents to the ED with symptoms of diarrhea for about seven days and worsening fatigue. Medical History: Nonischemic Cardiomyopathy, persistent atrial fibrillation, Life vest being evaluated to undergo ICD implantation. COPD, DM, DVT and PE. 08/20, Cardiology consult. Clinical Indicators: VS/Pulse OX, 08/19: B/P 102/69; HR 128; Temp 97.4F Oral; RR 18, SpO2 97% 3L nasal cannula BNP, 08/19: [id number] Echocardiogram Results: Severe LV systolic dysfunction with EF of 20% with global hypokinesia Moderate to severe mitral regurgitation likely related to LV dysfunction Chest X Ray, 08/19: Mild interstitial infiltrate and subsegmental atelectasis Treatment: 08/20 Lasix 80mg PO BID; 08/20 Toprol XL 50mg PO BID x 1; 08/20 08/21 Toprol XL 50mg PO TID; 08/21 08/22 Lopressor 50mg PO TID; 08/21 Aldactone 12.5mg PO Daily; 08/22 Lopressor 75mg PO TID. In your professional opinion, can you please clarify the nonischemic cardiomyopathy if known? [ ] Chronic Systolic Heart Failure (reduced EF) [ ] Other, please specify [ ] Unable to determine (Template Last Revised: July 2020) Acute on Chronic Systolic Heart Failure (reduced EF) MTDD
--- NOTE | 2022-08-22 13:02 | CDI ---
Documentation Clarification Form Date: 08/22/2022 12:52:14 PM From: Shaye Freeman RN CCDS Phone: [phone] Admit Date: 08/20/2022 12:21:00 AM Patient Name: Raji Hernandes Visit Number: [id number] Discharge Date: ATTENTION: The Clinical Documentation Specialists (CDI) and [facility] Coding Staff appreciate your assistance in clarifying documentation. Please respond to the clarification below the line at the bottom and electronically sign. The CDI & [facility] Coding staff will review the response and follow-up if needed. Please note: Queries are made part of the Legal Health Record. If you have any questions, please contact the author of this message via ITS. Dr. Eliane Pantoja Your patient has Kidney injury, 08/20, H&P. Based on this information and the findings below, is there an additional diagnosis that is clinically appropriate for this patient? Patient History/Risk Factors: 71-year-old male presents to the ED with symptoms of diarrhea for about seven days and worsening fatigue. Medical History: Nonischemic Cardiomyopathy, persistent atrial fibrillation, Life vest being evaluated to undergo ICD implantation. COPD, DM, DVT and PE. 08/20, Cardiology consult. Clinical Indicators: 08/19 BUN 79 08/20 BUN 69 Cr 1.59 Cr 1.42 GFR 44 GFR 44 Treatment: 08/19 0.9NS 1L bolus Is there an additional diagnosis that is clinically appropriate for this patient? x Acute Kidney Injury [ ] Acute on Chronic Renal Failure (please stage) [ ] No additional diagnosis/Not clinically significant [ ] Unable to determine [ ] Other, please specify Reference: KDIGO LAUREN Criteria An increase in serum creatinine by greater than or equal to 0.3 mg/dL within 48 hours; An increase in serum creatinine by greater than or equal to 1.5 times baseline, which is known or presumed to have occurred within the prior 7 days; A urine volume less than 0.5 ml/kg/h for 6 hours. When the baseline is unknown the lowest creatinine during admission assumed to be baseline (Template Last Revised: July 2022) [facility]
--- NOTE | 2022-08-22 13:10 | CDI ---
Documentation Clarification Form Date: 08/22/2022 1:03:39 PM From: Shaye Freeman RN CCDS Phone: [phone] Admit Date: 08/20/2022 12:21:00 AM Patient Name: Raji Hernandes Visit Number: [id number] Discharge Date: ATTENTION: The Clinical Documentation Specialists (CDI) and [facility] Coding Staff appreciate your assistance in clarifying documentation. Please respond to the clarification below the line at the bottom and electronically sign. The CDI & [facility] Coding staff will review the response and follow-up if needed. Please note: Queries are made part of the Legal Health Record. If you have any questions, please contact the author of this message via ITS. Dr. Eliane Butler coccyx pressure ulcer stage I is documented by Nursing Pressure Injury, 08/20. Based on this information and the findings below, is there an additional diagnosis that is clinically appropriate for this patient? Patient History/Risk Factors: 71-year-old male presents to the ED with symptoms of diarrhea for about seven days and worsening fatigue. Medical History: Nonischemic Cardiomyopathy, persistent atrial fibrillation, Life vest being evaluated to undergo ICD implantation. COPD, DM, DVT and PE. 08/20, Cardiology consult. Clinical Indicators: Location: Coccyx Wound description: [place] wound tenderness on palpation. Serosanguinous drainage, small amount of drainage. Dressing status dry intact ABD pad. Secondary Gauze/ sponge. Treatment: Turn Two Q Hours and dressings above. Is there an additional diagnosis that is clinically appropriate for this patient? x] Coccyx Pressure Ulcer Stage 1 [ ] Other condition, please specify [ ] Unable to determine Clinical Definitions: Stage 1 Pressure Ulcer: intact skin, non-blanching redness of local area Stage 2 Pressure Ulcer: Partial thickness, loss of dermis, pink wound bed Stage 3 Pressure Ulcer: Full thickness tissue loss Stage 4 Pressure Ulcer: Full thickness tissue loss with exposed bone, tendon, or muscle. Unstageable pressure ulcer: Full thickness tissue loss in which the base of the ulcer is covered by slough (yellow, blackwell, anderson, green or brown) and/or eschar (blackwell, brown or black) in the wound bed. (Template Last Revised: August 2020) MTDD
[2022-08-22 13:33] VITALS: BMI 19.4
[2022-08-22 16:34] LABS: Glucose,Whole Blood 138 mg/dL (70-110)
[2022-08-22] MEDS: METOPROLOL TARTRATE 25 MG TAB PO SCH ×2 (17:28→21:06)
--- NOTE | 2022-08-22 18:20 | CDI ---
Documentation Clarification Form Date: 08/22/2022 6:04:41 PM From: Shaye Freeman RN CCDS Phone: [phone] Admit Date: 08/20/2022 12:21:00 AM Patient Name: Raji Hernandes Visit Number: [id number] Discharge Date: ATTENTION: The Clinical Documentation Specialists (CDI) and [facility] Coding Staff appreciate your assistance in clarifying documentation. Please respond to the clarification below the line at the bottom and electronically sign. The CDI & [facility] Coding staff will review the response and follow-up if needed. Please note: Queries are made part of the Legal Health Record. If you have any questions, please contact the author of this message via ITS. Dr. Eliane Pantoja The Registered Dietitian assessment on 08/22 indicates this patient meets criteria for Severe Malnutrition. Based on this information and the findings below, is there an additional diagnosis that is clinically appropriate for this patient? History/Risk Factors: 71-year-old male presents to the ED with symptoms of diarrhea for about seven days and worsening fatigue. Medical History: Nonischemic Cardiomyopathy, persistent atrial fibrillation, Life vest, being evaluated to undergo ICD implantation. COPD, DM, DVT and PE. 08/20, Cardiology consult. Clinical Indicators: RD Consult Assessment: Current BMI: <19kg/m2 Nutrition intake: Poor; Percent consumed 25-50%. Regular, 1800ml fluid restriction; 42% of meals. Physical findings: Hypermetabolism, Stage I pressure injury coccyx. Nutritional Diagnosis: Chronic Severe Malnutrition. Related to: Decreased caloric intake <75% of estimated needs x 1 year. As evidenced by: Weight loss of 23% of UBW in one year. Nutritional Goals: Increase PO intake from 5-% -75%. Meeting 75% of estimated nutritional needs. Improved skin integrity. Treatment: RD Consult: See above Supplements: Elie BID, Magic Cups BID Monitor: Supplement, Snack and PO intake. Is there an additional diagnosis that is clinically appropriate for this patient? [x] Severe Protein-Calorie Malnutrition [ ] Other condition, please specify [ ] Unable to Determine (Template Last Revised: August 2020) MTDD
[2022-08-22 20:22] LABS: Glucose,Whole Blood 188 mg/dL (70-110)
--- NOTE | 2022-08-22 22:15 | PN ---
PROGRESS NOTE Mr. Hernandes has what seems to be nonischemic cardiomyopathy and atrial fibrillation. He has a LifeVest ordered at [facility]. He is breathing better today. He is not very active. I am recommending that we should have him up in the chair more, increase metoprolol from 50 to 75 mg t.i.d., continue other medications, and plan for discharge in the next 24 to 48 hours. MMHERMELINDOL / IJN: [id number] /
[2022-08-22 22:51] VITALS: RESP 18
[2022-08-23 06:10] LABS: Glucose,Whole Blood 118 mg/dL (70-110)
[2022-08-23] MEDS: INSULIN ASPART (NovoLOG) 100 UNIT/ML VIAL SQ SCH ×2 (06:54→11:48)
[2022-08-23] MEDS: MIDODRINE 5 MG TAB PO SCH ×2 (06:58→11:48)
[2022-08-23 07:10] VITALS: TEMP 97.5
[2022-08-23] MEDS: FUROSEMIDE 80 MG TAB PO SCH (08:59)
[2022-08-23] MEDS: MONTELUKAST 10 MG TAB PO SCH (08:59)
[2022-08-23] MEDS: ATORVASTATIN 40 MG TAB PO SCH (08:59)
[2022-08-23] MEDS: METOPROLOL TARTRATE 25 MG TAB PO SCH (08:59)
[2022-08-23] MEDS: APIXABAN 5 MG TAB PO SCH (08:59)
[2022-08-23] MEDS: CYANOCOBALAMIN 500 MCG TAB PO SCH (09:00)
[2022-08-23] MEDS: DAPAGLIFLOZIN PROPANEDIOL 10 MG TABLET PO SCH (09:00)
[2022-08-23] MEDS: SPIRONOLACTONE 25 MG TAB PO SCH (09:00)
--- NOTE | 2022-08-23 09:19 | P.DS ---
Providers Date of admission: 08/20/22 00:21 Expected date of discharge: 08/23/22 Attending physician: Mirian Junior MD Consults: 08/20/22 00:21 Consult Physician Routine Consulting Provider: [facility] Consult Reason/Comments: NSTEMI, CHF exas Do you want consulting provider notified?: Yes, Notify in am Primary care physician: Physician Nonstaff Hospital Course: Assessment: A. fib with RVR Elevated troponin Diarrhea Hypokalemia Kidney injury Hospital course: The patient is a 71-year-old male with a PMH of CHF (with LifeVest), A. fib on Eliquis, hypotension (on Midodrine), chronic L foot wounds, and hyperlipidemia who presented to the emergency room with complaints of diarrhea and generalized weakness. Vital signs upon arrival at the emergency room were temperature 97.4F, pulse 128, BP 102/69, SpO2 97% on 3 L nasal cannula, and respiratory rate 18. Laboratory evaluation reviewed and remarkable for troponin 0.106, proBNP 10,900, BUN 79, creatinine 1.59, potassium 2.9, hemoglobin 10.3. Chest x- ray revealed mild interstitial infiltrate with no other acute abnormalities. EKG the emergency room revealed A. fib with RVR at 129 bpm. case was discussed with emergency room physician and decision was made to admit the patient for further evaluation. Patient was seen in consultation with cardiology. Patient was diuresed with lasix. He was started on farxiga, spironolactone by cardiology. His midodrine was downtitrated to 5mg AC-TID from 7.5mg AC-TID. Metoprolol was uptitrated to 75mg TID. Echocardiogram was repeated and demonstrated EF of 20% with global hypokinesia, severe diastolic dysfunction, severe pulmonary HTN, and mod-severe MR. Patient was cleared for discharge by cardiology with instructions to follow up with his airport operations specialist at [facility] for further evaluation. I spent 38 minutes coordinating this discharge on 08/23 Gen: awake, alert HEENT: normocephalic, atraumatic, good hearing acuity, moist mucous membranes Resp: good air exchange, breathing comfortably with no accessory muscle use CVS: good distal perfusion x 4, GI: soft, NTTP, ND : no SPT, no CVAT, hatfield catheter is present MSK: no pitting edema, no clubbing Neuro: non-focal, moving all extremities Psych: cooperative, euthymic mood Patient Condition at Discharge: Good Plan - Discharge Summary New Discharge Prescriptions: New Spironolactone [Aldactone] 12.5 mg PO DAILY #15 tab Dapagliflozin Propanediol [Farxiga] 10 mg PO DAILY #30 tab Metoprolol Tartrate [Lopressor] 75 mg PO TID #270 tab Midodrine [ProAmatine] 5 mg PO AC-TID #90 tab Continue Cetirizine HCl 10 mg PO DAILY Cyanocobalamin [Vitamin B-12] 500 mcg PO DAILY Atorvastatin [Lipitor] 40 mg PO DAILY Furosemide [Lasix] 80 mg PO BID Montelukast [Singulair] 10 mg PO DAILY Changed Apixaban [Eliquis] 5 mg PO BID #60 tab Discontinued Midodrine HCl 7.5 mg PO TID Metoprolol Succinate (ER) [Toprol Xl] 50 mg PO BID Discharge Medication List Atorvastatin [Lipitor] 40 mg PO DAILY 08/19/22 [History] Cetirizine HCl 10 mg PO DAILY 08/19/22 [History] Cyanocobalamin [Vitamin B-12] 500 mcg PO DAILY 08/19/22 [History] Furosemide [Lasix] 80 mg PO BID 08/19/22 [History] Montelukast [Singulair] 10 mg PO DAILY 08/19/22 [History] Apixaban [Eliquis] 5 mg PO BID #60 tab 08/23/22 [Rx] Dapagliflozin Propanediol [Farxiga] 10 mg PO DAILY #30 tab 08/23/22 [Rx] Metoprolol Tartrate [Lopressor] 75 mg PO TID #270 tab 08/23/22 [Rx] Midodrine [ProAmatine] 5 mg PO AC-TID #90 tab 08/23/22 [Rx] Spironolactone [Aldactone] 12.5 mg PO DAILY #15 tab 08/23/22 [Rx] Follow up Appointment(s)/Referral(s): Care,[facility] [NON-STAFF] - Nonstaff,Physician [Primary Care Provider] - 1-2 days Activity/Diet/Wound Care/Special Instructions: Please follow up with your airport operations specialist within the next 7-10 days. Discharge Disposition: HOME WITH HOME HEALTH SERVICES
[2022-08-23 09:22] LABS: Calcium 8.7 mg/dL (8.4-10.2); Potassium 4.5 mmol/L (3.5-5.1)
[2022-08-23 09:30] LABS: Anisocytosis Slight; Basophils # (A) 0.1 k/uL (0-0.2); Basophils % (A) 1 %; Eosinophils # (A) 0.1 k/uL (0-0.7); Eosinophils % (A) 1 %; HCT 36.5 % (39.0-53.0); HGB 12.8 gm/dL (13.0-17.5); Hypochromasia Slight; Lymphocytes # (A) 1.5 k/uL (1.0-4.8); Lymphocytes % (A) 14 %; MCH 32.3 pg (25.0-35.0); MCV 92.3 fL (80.0-100.0); Mean Platelet Volume 9.2; Monocytes # (A) 0.4 k/uL (0-1.0); Monocytes % (A) 3 %; Neutrophils # (A) 8.3 k/uL (1.3-7.7); Neutrophils % (A) 78 %; Platelet Count 273 k/uL (150-450); RBC 3.96 m/uL (4.30-5.90); RDW 17.8 % (11.5-15.5); WBC 10.6 k/uL (3.8-10.6)
[2022-08-23 11:43] LABS: Glucose,Whole Blood 158 mg/dL (70-110)
[2022-08-23 11:46] VITALS: BP 93/62; PULSE 114
--- NOTE | 2022-08-24 16:29 | CDI ---
Documentation Clarification Form Date: 08/24/2022 4:13:17 PM From: Bella Mcpherson Admit Date: 08/20/2022 12:21:00 AM Patient Name: Raji Hernandes Visit Number: [id number] Discharge Date: 08/23/2022 12:50:00 PM ATTENTION: The Clinical Documentation Specialists (CDI) and [facility] Coding Staff appreciate your assistance in clarifying documentation. Please respond to the clarification below the line at the bottom and electronically sign. The CDI & [facility] Coding staff will review the response and follow-up if needed. Please note: Queries are made part of the Legal Health Record. If you have any questions, please contact the author of this message via ITS. Dr. Eliane Pantoja Conflicting documentation has been found in the medical record regarding elevated troponins. Please provide clarification. 08/19/22 ED NOTE: NSTEMI 08/20/22 Consult: Troponin elevation, representing type II event, no evidence of acute coronary syndrome. 08/20/22 H& P 08/23/22 Discharge Summary: Elevated troponin History/Risk Factors: 71 year old male presented with diarrhea for about seven days and worsening fatigue. Has a hx of nonischemic cardiomyopathy, persistent AFIB, has a Life Vest, COPD, DM, hx of DVT and PE. Clinical Indicators: patient was diagnosed with an NSTEMI, with further mention of troponin elevation representing a Type II event, no evidence of acute coronary syndrome. Diagnosed with Acute on Chronic systolic CHF, Permanent AFIB, LAUREN Troponin: 08/19: 0.106, 08/20: 0.108 and 0.102 EKG results: AFIB with RVR, RBBB, Probably septal VA of indeterminate age, moderate t wave abnormality Labs: Potassium 2.9, BUN 79, CR1.59, Calcium 7.6 Treatment: 08/19 0.9NS 1L bolus, potassium Chl. 08/20 K-Dur 08/21 toprol 08/22 Lopressor and Eliquis Please clarify which diagnosis is most appropriate: [ ] NSTEMI [x] Type II VA due to AFIB RVR [ ] Type II VA due to Acute Exacerbation CHF [ ] Elevated troponin [ ] Other (please specify) [ ] Unable to determine MTDD
== END 2022-08-23 12:50 | disposition home health service (06) | DRG 280 ==
LOC: EC 20:51 → 3SCARD 08-20 00:21
PROVIDERS: ADMIT Internal Medicine; ATTEND Internal Medicine
DX: I48.21 Permanent atrial fibrillation (principal); E43 Unspecified severe protein-calorie malnutrition; I21.A1 Myocardial infarction type 2; I50.23 Acute on chronic systolic (congestive) heart failure; J98.11 Atelectasis; Z95.811 Presence of heart assist device; N17.9 Acute kidney failure, unspecified; Z68.1 Body mass index [BMI] 19.9 or less, adult; I11.0 Hypertensive heart disease with heart failure; L89.151 Pressure ulcer of sacral region, stage 1; I42.8 Other cardiomyopathies; L97.529 Non-pressure chronic ulcer of other part of left foot with unspecified severity; E11.9 Type 2 diabetes mellitus without complications; E86.0 Dehydration; E87.6 Hypokalemia; I95.9 Hypotension, unspecified; J44.9 Chronic obstructive pulmonary disease, unspecified; R19.7 Diarrhea, unspecified; E78.5 Hyperlipidemia, unspecified; I27.20 Pulmonary hypertension, unspecified; I34.0 Nonrheumatic mitral (valve) insufficiency; Z87.891 Personal history of nicotine dependence; Z71.3 Dietary counseling and surveillance; Z28.310 Unvaccinated for COVID-19; Z88.6 Allergy status to analgesic agent; Z79.899 Other long term (current) drug therapy; Z86.711 Personal history of pulmonary embolism; Z79.01 Long term (current) use of anticoagulants; Z85.828 Personal history of other malignant neoplasm of skin
CPT/HCPCS: 36415; 71046; 80048; 80053; 83690; 83735; 83880; 84132; 84484; 85025; 85610; 85730; 93005; 93306; 94760; 96365; 96368; 99291

== ENCOUNTER 2022-10-30 04:54 | Emergency (ER) | payer MEDICARE ==
[2022-10-30 05:08] VITALS: TEMP 97.6
--- NOTE | 2022-10-30 07:32 | CT ---
EXAMINATION TYPE: CT brain salbador scherer DATE OF EXAM: 10/30/2022 COMPARISON: None HISTORY: 72-year-old male with fall, head laceration, pain CT DLP: 1307.1 mGycm Automated exposure control for dose reduction was used. Technique: Examination of the head was done in axial plane without intravenous contrast. Coronal and sagittal reconstructions performed. CT of the cervical spine was obtained in axial plane without intravenous injection of contrast mater ial. Coronal and sagittal reformatted images were obtained from the axial views for evaluation of f ractures, spinal alignment and canal. FINDINGS: Head: There is no evidence of acute intracranial hemorrhage, acute ischemic changes, mass, mass-effect, or extra-axial fluid collection. There is no effacement of cerebral sulci or basal subarachnoid cister ns. There is no hydrocephalus. There is no midline shift. Peres-white matter distinction is preserv ed. Moderate volume loss along the bilateral cerebral convexities. Empty sella noted. Paranasal sinuses and mastoid air cells are well-pneumatized. Leftward nasal septal deviation. Orbits and globes are intact. No calvarial fracture seen. Cervical spine: Emphysematous change in the visualized upper lungs. Questionable trace right pleural effusion. Some g roundglass change at the anterior visualized right upper lobe. No craniocervical junction abnormality, predental space widening, or prevertebral soft tissue swellin g. Degenerative change of the C1 dens articulation. Moderate multilevel disc/endplate degenerative changes as well as uncovertebral joint and facet arthr opathy. Degenerative grade 1 retrolisthesis C3-C4. Alignment otherwise maintained. Disc osteophyte complexes at the various levels contribute to variable mild to moderate spinal canal narrowing such as at C3-C4 and C5-C6. Moderate left neuroforaminal stenosis at C2-C3, severe on the right and moderate left at C3-C4, mild to moderate right C4-C5, moderate bilateral C6-C7, and mild left T7-T1. Sagittal and coronal reformatted images confirm above findings. COMBINED IMPRESSION: 1. Moderate generalized cerebral atrophy. No acute intracranial abnormality seen. 2. Moderate to advanced multilevel spondylotic change in the cervical spine. Degenerative grade 1 spo ndylolisthesis retrolisthesis at C3-C4. There are linear foraminal narrowing as outlined above and mi ld to moderate narrowing of the spinal canal at C3-C4 and C5-C6. 3. COPD in the visualized upper lungs. There is some groundglass change at the anterior right upper l obe, partially visualized. Correlate for any respiratory symptoms of pneumonitis or fluid overload.
--- NOTE | 2022-10-30 07:42 | XR ---
EXAMINATION TYPE: XR foot complete 3 views LT DATE OF EXAM: 10/30/2022 Comparison: None Clinical History: 72-year-old male fall, pain. The technologist reports open wounds. Findings: Moderate to large plantar heel spur. There are hammertoe deformities. Some overlying dressing is note d. 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 Limited assessment of the distal a spect of the toes due to partial flexion and hammertoes. No acute fracture, subluxation, or dislocati on is seen. 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 Hammer toes and flexion at the toes limiting their detailed assessment. No obvious acute osseous abnormality is seen. Plantar heel spur.
[2022-10-30] MEDS ORDERED: ACETAMINOPHEN TAB 325 MG TAB PO STA (08:03)
[2022-10-30 08:13] VITALS: BP 112/73; PULSE 112; RESP 18
--- NOTE | 2022-10-30 08:31 | ED ---
Fall HPI - General Chief Complaint: Fall Stated Complaint: Fall, Head Injury Time Seen by Provider: 10/30/22 05:05 Source: EMS Mode of arrival: EMS - History of Present Illness Initial Comments: 72-year-old male with past medical history of A. fib on Eliquis who presents to the emergency department after he sustained a fall. He was laying in bed when he rolled onto the floor. States that he was able to get his feet below him however he hit his head on the nightstand when he went to correct his positioning. He denies any loss of consciousness. No headaches or visual changes. Did have bleeding to the top of his head. Patient has a large area of open ulceration due to melanoma on the top of his head. This is the area that the patient hit which is not bleeding. He also sustained a skin tear to the right elbow but denies any pain. Patient also twisted his left foot where he has a chronic wound on his great toe. He denies any chest pain or shortness of breath. No weakness. Patient acting appropriately. No vomiting. No other alleviating, precipitating or modifying factors - Related Data Home Medications Medication Instructions Recorded Confirmed Atorvastatin [Lipitor] 40 mg PO DAILY 08/19/22 08/19/22 Cetirizine HCl 10 mg PO DAILY 08/19/22 08/19/22 Cyanocobalamin [Vitamin B-12] 500 mcg PO DAILY 08/19/22 08/19/22 Furosemide [Lasix] 80 mg PO BID 08/19/22 08/19/22 Montelukast [Singulair] 10 mg PO DAILY 08/19/22 08/19/22 Previous Rx's Medication Instructions Recorded Apixaban [Eliquis] 5 mg PO BID #60 tab 08/23/22 Dapagliflozin Propanediol [Farxiga] 10 mg PO DAILY #30 tab 08/23/22 Metoprolol Tartrate [Lopressor] 75 mg PO TID #270 tab 08/23/22 Midodrine [ProAmatine] 5 mg PO AC-TID #90 tab 08/23/22 Spironolactone [Aldactone] 12.5 mg PO DAILY #15 tab 08/23/22 Allergies Allergy/AdvReac Type Severity Reaction Status Date / Time morphine Allergy Unknown Verified 08/19/22 21:54 Review of Systems ROS Statement: Those systems with pertinent positive or pertinent negative responses have been documented in the HPI. ROS Other: All systems not noted in ROS Statement are negative. Past Medical History Past Medical History: Atrial Fibrillation, COPD, Diabetes Mellitus, Deep Vein Thrombosis (DVT), Pulmonary Embolus (PE) Additional Past Medical History / Comment(s): osteolmyelitis, SKIN CA; urinary retention History of Any Multi-Drug Resistant Organisms: None Reported Past Surgical History: Cholecystectomy Additional Past Surgical History / Comment(s): Lumbar back surgery Past Anesthesia/Blood Transfusion Reactions: Previous Problems w/ Anesthesia Additional Past Anesthesia/Blood Transfusion Reaction / Comment(s): "Hard to wake up" Past Psychological History: No Psychological Hx Reported Smoking Status: Former smoker Past Alcohol Use History: None Reported Past Drug Use History: None Reported - Past Family History Father Family Medical History: Diabetes Mellitus General Exam Limitations: no limitations General appearance: alert, in no apparent distress Head exam: Present: normocephalic, other (large area of ulceration on top of patients head - 10 x 10 cm - oozing blood. petechial areas of bleeding which is easy to control. No lacerations) Eye exam: Present: normal appearance, PERRL, EOMI. Absent: scleral icterus, conjunctival injection, periorbital swelling ENT exam: Present: normal exam, mucous membranes moist Neck exam: Present: normal inspection. Absent: tenderness, meningismus, lymphadenopathy Respiratory exam: Present: normal lung sounds bilaterally. Absent: respiratory distress, wheezes, rales, rhonchi, stridor Cardiovascular Exam: Present: tachycardia, irregular rhythm GI/Abdominal exam: Present: soft, normal bowel sounds. Absent: distended, tenderness, guarding, rebound, rigid Extremities exam: Present: other (mild bleeding from wound on great toe - no dehiscence. nail intact.) Back exam: Present: normal inspection Neurological exam: Present: alert, oriented X3, CN II-XII intact Psychiatric exam: Present: normal affect, normal mood Skin exam: Present: other (skin tear right elbow - 3 x 1 cm) Course Vital Signs 10/30/22 10/30/22 10/30/22 05:01 06:08 08:10 Temperature 97.6 F Pulse Rate 103 H 102 H 112 H Respiratory 18 16 18 Rate Blood Pressure 94/63 98/64 112/73 O2 Sat by Pulse 90 L 98 98 Oximetry Medical Decision Making - Medical Decision Making Was pt. sent in by a medical professional or institution (IMELDA Ridley, EMBEDDED SOFTWARE DEVELOPMENT ENGINEER, urgent care, hospital, or halfway...) When possible be specific @ -No Did you speak to anyone other than the patient for history (EMS, parent, family, police, friend...)? What history was obtained from this source @ -Patients daughter provides history Did you review nursing and triage notes (agree or disagree)? Why? @ -I reviewed and agree with nursing and triage notes Were old charts reviewed (outside hosp., previous admission, EMS record, old EKG, old radiological studies, urgent care reports/EKG's, halfway records)? Report findings @ -No old charts were reviewed Differential Diagnosis (chest pain, altered mental status, abdominal pain women, abdominal pain men, vaginal bleeding, weakness, fever, dyspnea, syncope, headache, dizziness, GI bleed, back pain, seizure, CVA, palpatations, mental health, musculoskeletal)? @ -skin abrasion, skin laceration, closed head injury, concussion, fracture EKG interpreted by me (3pts min.). @ -yes, demonstrates afib X-rays interpreted by me (1pt min.). @ -yes,left foot shows old injury CT interpreted by me (1pt min.). @ -Yes, No acute process U/S interpreted by me (1pt. min.). @ -None done What testing was considered but not performed or refused? (CT, X-rays, U/S, labs)? Why? @ -None What meds were considered but not given or refused? Why? @ -None Did you discuss the management of the patient with other professionals (professionals i.e. IMELDA Ridley, EMBEDDED SOFTWARE DEVELOPMENT ENGINEER, lab, RT, psych nurse, social insurance specialist, divorce lawyer, teacher, commercial loan officer, vocational case manager)? Give summary @ -No Was smoking cessation discussed for >3mins.? @ -No Was critical care preformed (if so, how long)? @ -No Were there social determinants of health that impacted care today? How? (Homelessness, low income, unemployed, alcoholism, drug addiction, transportation, low edu. Level, literacy, decrease access to med. care, penitentiary, rehab)? @ -No Was there de-escalation of care discussed even if they declined (Discuss DNR or withdrawal of care, Hospice)? DNR status @ -No What co-morbidities impacted this encounter? (DM, HTN, Smoking, COPD, CAD, Cancer, CVA, ARF, Chemo, Hep., AIDS, mental health diagnosis, sleep apnea, morbid obesity)? @ -afib on anticoagulation Was patient admitted / discharged? Hospital course, mention meds given and route, prescriptions, significant lab abnormalities, going to OR and other pertinent info. @ -Upon arrival patient was placed into room 4. History and physical exam was performed. Patient's wounds are cleansed and dressed. He is sent for CT of his head and cervical spine. X-rays performed of the left foot. CT of the head demonstrates no acute intracranial process. X-ray demonstrates a call of old i njury but no obvious acute abnormality. Patient be discharged home at this time and a trip to follow up with primary care doctor. Return for any new or worsening symptoms. Patient discharged in stable condition Undiagnosed new problem with uncertain prognosis? @ -yes Drug Therapy requiring intensive monitoring for toxicity (Heparin, Nitro, Insulin, Cardizem)? @ -No Were any procedures done? @ -No Diagnosis/symptom? @ -acute fall, blunt head trauma, abrasion scalp, skin tear right elbow, abrasion left great toe Acute, or Chronic, or Acute on Chronic? @ -acute Uncomplicated (without systemic symptoms) or Complicated (systemic symptoms)? @ -complicated Side effects of treatment? @ -No Exacerbation, Progression, or Severe Exacerbation? @ -No Poses a threat to life or bodily function? How? (Chest pain, [place], [place], pneumonia, PE, COPD, DKA, ARF, appy, cholecystitis, CVA, Diverticulitis, Homicidal, Suicidal, threat to staff... and all critical care pts) @ -closed head injury on anticoagulation could lead to bleeding and - EKG Data EKG Comments: EKG demonstrates A. fib with rate of 118. QRS 145. QTC of 450. No acute ST segment elevations or depressions Disposition Clinical Impression: Fall, Head injury, Skin avulsion Disposition: HOME SELF-CARE Condition: Stable Instructions (If sedation given, give patient instructions): Fall Prevention for Older Adults (ED) Additional Instructions: Please follow-up with your primary care doctor in 2-4 days and return for any new or worsening symptoms. Please purchase Bacitracin for your right arm cut and place on the area twice daily until healed. Is patient prescribed a controlled substance at d/c from ED?: No Referrals: Tia Sampson MD [Primary Care Provider] - 1-2 days Time of Disposition: 08:30
== END 2022-10-30 09:46 | disposition home or self-care (01) ==
LOC: EC 04:54
DX: S51.011A Laceration without foreign body of right elbow, initial encounter (principal); S90.412A Abrasion, left great toe, initial encounter; I48.91 Unspecified atrial fibrillation; J44.9 Chronic obstructive pulmonary disease, unspecified; E11.9 Type 2 diabetes mellitus without complications; Z86.718 Personal history of other venous thrombosis and embolism; Z86.711 Personal history of pulmonary embolism; Z87.891 Personal history of nicotine dependence; Z88.5 Allergy status to narcotic agent; Z79.899 Other long term (current) drug therapy; Z79.01 Long term (current) use of anticoagulants; W06.XXXA Fall from bed, initial encounter
CPT/HCPCS: 70450; 72125; 93005; 99285

== ENCOUNTER 2022-11-24 21:07 | Inpatient (IN) | payer MEDICARE ==
[2022-11-24] MEDS ORDERED: ONDANSETRON 4 MG/2 ML VIAL IVP PRN (22:28)
[2022-11-24] MEDS ORDERED: SODIUM CHLORIDE 0.9% 1,000 ML IV STA (22:28)
[2022-11-24] MEDS ORDERED: NALOXONE 0.4 MG/ML 1 ML VIAL IV PRN (22:28)
[2022-11-24] MEDS ORDERED: ONDANSETRON 4 MG/2 ML VIAL IVP STA (22:28)
[2022-11-24] MEDS ORDERED: KETOROLAC 15 MG/ML 1 ML VIAL IVP PRN (22:28)
[2022-11-24] MEDS ORDERED: SODIUM CHLORIDE 0.9% 1,000 ML IV SCH (22:30)
[2022-11-24] MEDS ORDERED: CEFEPIME 2 GM in SODIUM CHLORIDE 0.9% 100 ML IVPB STA (22:33)
[2022-11-24] MEDS ORDERED: VANCOMYCIN IV PER PHARMACY 1 EACH MISC MISCELLANE PRN (22:33)
[2022-11-24] MEDS ORDERED: IPRATROPIUM-ALBUTEROL 3 ML NEB INHALATION PRN (22:33)
[2022-11-24] MEDS ORDERED: IPRATROPIUM-ALBUTEROL 3 ML NEB INHALATION STA (22:33)
[2022-11-24] MEDS ORDERED: HYDROmorphone 1 MG/ML 1 ML SYRINGE IVP STA (22:33)
[2022-11-24] MEDS ORDERED: HYDROmorphone 1 MG/ML 1 ML SYRINGE IVP PRN (22:33)
[2022-11-24] MEDS ORDERED: VANCOMYCIN 1,000 MG in SODIUM CHLORIDE 0.9% 250 ML IVPB STA (22:43)
--- NOTE | 2022-11-24 22:47 | ED ---
Recheck HPI - General Chief Complaint: Wound/Laceration Stated Complaint: infection Time Seen by Provider: 11/24/22 21:20 Source: patient, RN notes reviewed, old records reviewed Mode of arrival: EMS Limitations: no limitations - History of Present Illness Initial Comments: This is a 72-year-old male to the emergency department for evaluation patient pr esents today to the ER today for evaluation regards to reevaluation of left foot ulcer chronically healing ulcers and recent increasing blackness to left great toe. Patient has no complaints never has complaints per family who are at bedside patient was sent in by will care who presented to the house to evaluate patient's wound and change bandage. Patient himself denies any complaints. MD Complaint: abnormal lab -: minutes(s) Returns Today for: Called Because of Abnormal Lab/Test, persistent/worsening pain related to initial visit Symptoms Since Prior Visit: no new symptoms Context: planned re-check Associated Symptoms: none - Related Data Home Medications Medication Instructions Recorded Confirmed Atorvastatin [Lipitor] 40 mg PO DAILY 08/19/22 11/25/22 Cetirizine HCl 10 mg PO DAILY 08/19/22 11/25/22 Cyanocobalamin [Vitamin B-12] 500 mcg PO DAILY 08/19/22 11/25/22 Furosemide [Lasix] 80 mg PO BID 08/19/22 11/25/22 Montelukast [Singulair] 10 mg PO DAILY 08/19/22 11/25/22 Folic Acid 1 mg PO DAILY 11/25/22 11/25/22 cefUROXime axetiL [Ceftin] 500 mg PO BID 11/25/22 11/25/22 Previous Rx's Medication Instructions Recorded Dapagliflozin Propanediol [Farxiga] 10 mg PO DAILY #30 tab 08/23/22 Midodrine [ProAmatine] 5 mg PO AC-TID #90 tab 08/23/22 Spironolactone [Aldactone] 12.5 mg PO DAILY #15 tab 08/23/22 Apixaban [Eliquis] 2.5 mg PO BID tab 11/30/22 Ipratropium-Albuterol Nebulize 3 ml INHALATION TID PRN #90 each 11/30/22 [Duoneb 0.5 mg-3 mg/3 ml Soln] Metoprolol Succinate [Toprol XL] 25 mg PO DAILY 30 Days #15 tab 11/30/22 Allergies Allergy/AdvReac Type Severity Reaction Status Date / Time morphine Allergy Unknown Verified 11/25/22 14:37 Review of Systems ROS Statement: Those systems with pertinent positive or pertinent negative responses have been documented in the HPI. ROS Other: All systems not noted in ROS Statement are negative. Past Medical History Past Medical History: Atrial Fibrillation, COPD, Diabetes Mellitus, Deep Vein Thrombosis (DVT), Pulmonary Embolus (PE) Additional Past Medical History / Comment(s): osteolmyelitis, SKIN CA; urinary retention History of Any Multi-Drug Resistant Organisms: None Reported Past Surgical History: Cholecystectomy Additional Past Surgical History / Comment(s): Lumbar back surgery Past Anesthesia/Blood Transfusion Reactions: Previous Problems w/ Anesthesia Additional Past Anesthesia/Blood Transfusion Reaction / Comment(s): "Hard to wake up" Past Psychological History: No Psychological Hx Reported Smoking Status: Former smoker Past Alcohol Use History: None Reported Past Drug Use History: None Reported - Past Family History Father Family Medical History: Diabetes Mellitus General Exam Limitations: no limitations General appearance: alert, in no apparent distress, anxious Head exam: Present: atraumatic, normocephalic, normal inspection Eye exam: Present: normal appearance, PERRL, EOMI. Absent: scleral icterus, conjunctival injection, periorbital swelling ENT exam: Present: normal exam, mucous membranes dry Neck exam: Present: normal inspection. Absent: tenderness, meningismus, lymphadenopathy Respiratory exam: Present: wheezes, accessory muscle use, decreased breath sounds, prolonged expiratory. Absent: respiratory distress, rales, rhonchi, stridor Cardiovascular Exam: Present: tachycardia, irregular rhythm, normal heart sounds. Absent: systolic murmur, diastolic murmur, rubs, gallop, clicks GI/Abdominal exam: Present: soft, normal bowel sounds. Absent: distended, tenderness, guarding, rebound, rigid Extremities exam: Present: full ROM, tenderness, normal capillary refill, other (Patient does have significant area of blackness with surrounding erythema to left great toe moving proximally with unhealed ulcers to bilateral aspect as well as heel). Absent: normal inspection, pedal edema, joint swelling, calf tenderness Back exam: Present: normal inspection Neurological exam: Present: alert, oriented X3, CN II-XII intact Psychiatric exam: Present: normal affect, normal mood Skin exam: Present: warm, dry, intact, normal color. Absent: rash Course Vital Signs 11/24/22 11/24/22 11/25/22 21:18 22:41 00:42 Temperature 97.1 F L Pulse Rate 116 H 109 H Pulse Rate [ Pulse Oximetery ] Respiratory 18 18 Rate Blood Pressure 84/59 97/74 Blood Pressure [Left Arm] O2 Sat by Pulse 99 98 91 L Oximetry 11/25/22 11/25/22 11/25/22 00:43 00:45 00:51 Temperature Pulse Rate 104 H 110 H 108 H Pulse Rate [ Pulse Oximetery ] Respiratory 18 Rate Blood Pressure 108/72 Blood Pressure [Left Arm] O2 Sat by Pulse 98 Oximetry 11/25/22 02:00 Temperature 98.1 F Pulse Rate Pulse Rate [ 69 Pulse Oximetery ] Respiratory 16 Rate Blood Pressure Blood Pressure 87/63 [Left Arm] O2 Sat by Pulse 90 L Oximetry - Reevaluation(s) Reevaluation #1: 11/24/22 22:42 Medical records reviewed Reevaluation #2: 11/24/22 22:42 Patient remains asymptomatic Reevaluation #3: 11/24/22 22:42 Patient informed results questions answered Reevaluation #4: 11/24/22 22:43 Was pt. sent in by a medical professional or institution? @ -yes patient was sent in by wound [facility] Did you speak to anyone other than the patient for history? @ -yes family is at bedside providing history and they're patient's primary caregivers Did you review nursing and triage notes? @ -agree Were old charts reviewed? @ -yes patient's old charts are reviewed Differential Diagnosis? @ -prior EKG interpreted by me (3pts min.)? @ -yes X-rays interpreted by me (1pt min.)? @ -no CT interpreted by me (1pt min.)? @ -no U/S interpreted by me (1pt. min.)? @ -no What testing was considered but not performed? (CT, X-rays, U/S, labs)? Why? @ -no What meds were considered but not given? Why? @ -no Did you discuss the management of the patient with other professionals? @ -no Did you reconcile home meds? @ -no Was smoking cessation discussed for >3mins.? @ -no Was critical care preformed (if so, how long)? @ -yes31 Were there social determinants of health that impacted care today? How? (Homelessness, low income, unemployed, alcoholism, drug addiction, transportat ion, low edu. Level, literacy, decrease access to med. care, assisted, rehab)? @ -no Was there de-escalation of care discussed even if they declined? (Discuss DNR or withdrawal of care, Hospice)? @ -no What co-morbidities impacted this encounter? (DM, HTN, Smoking, COPD, CAD, Cancer, CVA, Hep., AIDS, mental health diagnosis, sleep apnea, morbid obesity)? @ -none Was patient admitted / discharged? @ -72 male be admitted for severe illness, patient is in atrial fibrillation with RVR on anticoagulation, patient does have severe limb ischemia with worsening prognosis, gangrene admitted Undiagnosed new problem with uncertain prognosis? @ -no Drug Therapy requiring intensive monitoring for toxicity (Heparin, Nitro, Insulin, Cardizem)? @ -no Were any procedures done? @ -no Diagnosis/symptom? @ -Acute limb ischemia, gangrene, acute renal failure, COPD, hepatitis, dehydration, atrial fibrillation with RVR Acute, or Chronic, or Acute on Chronic? @ -acute on chronic Uncomplicated (without systemic symptoms) or Complicated (systemic symptoms)? @ -complicated Side effects of treatment? @ -no Exacerbation, Progression, or Severe Exacerbation] @ -no Poses a threat to life or bodily function? 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 [facility], patient will be admitted for vascular surgery IV antibiotics, currently antibiotics for urinary tract infection with indwelling Galeana catheter. Patient is currently and fibrillation with RVR and has been for about a month with uncontrolled rate - Lab Data Result diagrams: 11/29/22 07:40 11/30/22 07:50 - Radiology Data Radiology results: report reviewed (X-ray of the left foot), image reviewed Critical Care Time Critical Care Time: Yes Total Critical Care Time: 31 Disposition Clinical Impression: Gangrene of toe of left foot, Cellulitis of left foot, Ulcer of left foot, Atrial fibrillation with RVR, Stage II pressure ulcer of left buttock, Type 2 diabetes mellitus with other skin ulcer, Dehydration, ARF (acute renal failure), Transaminitis, Bleeding from wound Disposition: ADMITTED IP TO THIS HOSP Condition: Serious Is patient prescribed a controlled substance at d/c from ED?: No Time of Disposition: 22:40
[2022-11-25 00:08] LABS: Anisocytosis Slight; Basophils % (A) 0 %; Eosinophils # (A) 0.1 k/uL (0-0.7); Eosinophils % (A) 1 %; HCT 38.6 % (39.0-53.0); HGB 11.8 gm/dL (13.0-17.5); Hypochromasia Slight; Lymphocytes # (A) 0.6 k/uL (1.0-4.8); Lymphocytes % (A) 3 %; MCH 28.4 pg (25.0-35.0); MCHC 30.7 g/dL (31.0-37.0); MCV 92.5 fL (80.0-100.0); Mean Platelet Volume 8.7; Monocytes # (A) 0.6 k/uL (0-1.0); Monocytes % (A) 4 %; Neutrophils # (A) 15.2 k/uL (1.3-7.7); Neutrophils % (A) 92 %; Platelet Count 281 k/uL (150-450); RBC 4.17 m/uL (4.30-5.90); RDW 17.1 % (11.5-15.5); WBC 16.6 k/uL (3.8-10.6)
[2022-11-25 00:15] LABS: INR 1.2 (<1.2); Partial Thromboplastin Time 35.4 sec (22.0-30.0); Prothrombin Time 12.7 sec (9.0-12.0)
--- NOTE | 2022-11-25 00:20 | XR ---
EXAM: XR Left Foot Complete, 3 or More Views CLINICAL HISTORY: ITS.REASON XR Reason: pain TECHNIQUE: Frontal, lateral and oblique views of the left foot. COMPARISON: No relevant prior studies available. FINDINGS: Bones/joints: Osseous demineralization. Heel spur measures 14 mm. No fracture or dislocation. Soft tissues: Unremarkable. No radiopaque foreign body. IMPRESSION: No fracture or dislocation.
[2022-11-25 00:24] LABS: ALT 162 U/L (4-49); AST 191 U/L (17-59); African American GFR (CKD) 33 (>60 ml/min/1.73 sqM); Albumin 3.2 g/dL (3.5-5.0); Alkaline Phosphatase 300 U/L (38-126); Anion Gap 15 mmol/L; Calcium 8.5 mg/dL (8.4-10.2); Carbon Dioxide 22 mmol/L (22-30); Chloride 97 mmol/L (98-107); Glucose 116 mg/dL (74-99); Magnesium 2.4 mg/dL (1.6-2.3); Non-African American GFR(CKD) 28 (>60 ml/min/1.73 sqM); Phosphorus 3.5 mg/dL (2.5-4.5); Potassium 3.6 mmol/L (3.5-5.1); Sodium 134 mmol/L (137-145); Total Bilirubin 1.3 mg/dL (0.2-1.3); Total Protein 6.6 g/dL (6.3-8.2)
[2022-11-25 00:48] LABS: Blood Urea Nitrogen 115 mg/dL (9-20)
[2022-11-25 04:33] LABS: Appearance,Urine Turbid (Clear); Bilirubin,Urine Negative (Negative); Blood,Urine Large (Negative); Budding Yeast,Urine Many /hpf; Calcium Oxalate Crystals,Urine Occasional /hpf; Color,Urine Yellow; Glucose,Urine (UA) Negative (Negative); Hyaline Casts,Urine 3 /lpf (0-2); Ketones,Urine Negative (Negative); Leukocyte Esterase,Urine Large (Negative); Mucus,Urine Rare /hpf; Nitrite,Urine Negative (Negative); Protein,Urine Trace (Negative); RBC,Urine 56 /hpf (0-5); Specific Gravity,Urine 1.014 (1.001-1.035); Squamous Epithelial Cell,Urine <1 /hpf (0-4); Urobilinogen,Urine <2.0 mg/dL (<2.0); WBC,Urine 180 /hpf (0-5)
--- NOTE | 2022-11-25 06:09 | P.CRDCN ---
History of Present Illness Consult date: 11/25/22 Chief complaint: Left foot discomfort History of present illness: The patient is a pleasant 72-year-old gentleman who was known to our service fr om before currently follows with a e commerce merchant at [facility] with a past medical history significant for severe nonischemic cardiomyopathy with EF around 20-25% with moderate to severe mitral regurgitation as well as permanent atrial for the patient as well as multiple comorbid conditions was brought to the hospital by his family/daughter for left foot discomfort and changing in the color. This happened about a week ago. The patient and his family noticed black toes on the left side. He started having some discomfort in the left foot as well. No pain in the chest and no shortness of breath and no dizziness or lightheadedness and no feeling of heart racing or fluttering. He is known to have permanent pictures the patient and he stated that he has been compliant with oral anticoagulation. We consulted to see the patient for further evaluation of atrial fibrillation. Currently the patient is height both intensive and his heart rate has been around 100 bpm he was receiving midodrine as an outpatient which I'm going to start. He is also on oral anticoagulation but I am holding on starting that right now because the patient is having bleeding from the cancer on the scalp. He also underwent further evaluation including blood work showed elevated creatinine and he is known to have chronic kidney disease and also elevated liver function tests. The examination the patient has low blood pressure. He is euvolemic. He does have irregular rhythm with a systolic murmur and the left foot appeared to be wrapped. 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 Obtain an arterial duplex study No need to repeat the echo in the light of recent echocardiogram [place] follow- up with the patient Past Medical History Past Medical History: Atrial Fibrillation, COPD, Diabetes Mellitus, Deep Vein Thrombosis (DVT), Pulmonary Embolus (PE) Additional Past Medical History / Comment(s): osteolmyelitis, SKIN CA; urinary retention History of Any Multi-Drug Resistant Organisms: None Reported Past Surgical History: Cholecystectomy Additional Past Surgical History / Comment(s): Lumbar back surgery Past Anesthesia/Blood Transfusion Reactions: Previous Problems w/ Anesthesia Additional Past Anesthesia/Blood Transfusion Reaction / Comment(s): "Hard to wake up" Past Psychological History: No Psychological Hx Reported Smoking Status: Former smoker Past Alcohol Use History: None Reported Past Drug Use History: None Reported - Past Family History Father Family Medical History: Diabetes Mellitus Medications and Allergies Home Medications Medication Instructions Recorded Confirmed Type Atorvastatin [Lipitor] 40 mg PO DAILY 08/19/22 08/19/22 History Cetirizine HCl 10 mg PO DAILY 08/19/22 08/19/22 History Cyanocobalamin [Vitamin B-12] 500 mcg PO DAILY 08/19/22 08/19/22 History Furosemide [Lasix] 80 mg PO BID 08/19/22 08/19/22 History Montelukast [Singulair] 10 mg PO DAILY 08/19/22 08/19/22 History Apixaban [Eliquis] 5 mg PO BID #60 tab 08/23/22 Rx Dapagliflozin Propanediol [Farxiga] 10 mg PO DAILY #30 tab 08/23/22 Rx Metoprolol Tartrate [Lopressor] 75 mg PO TID #270 tab 08/23/22 Rx Midodrine [ProAmatine] 5 mg PO AC-TID #90 tab 08/23/22 Rx Spironolactone [Aldactone] 12.5 mg PO DAILY #15 tab 08/23/22 Rx Allergies Allergy/AdvReac Type Severity Reaction Status Date / Time morphine Allergy Unknown Verified 11/24/22 21:17 Physical Exam Vitals: Vital Signs Temp Pulse Pulse Resp BP BP Pulse Ox 11/25/22 02:00 98.1 F 69 16 87/63 90 L 11/25/22 00:51 108 H 11/25/22 00:45 110 H 18 108/72 98 11/25/22 00:43 104 H 11/25/22 00:42 91 L 11/24/22 22:41 109 H 18 97/74 98 11/24/22 21:18 97.1 F L 116 H 18 84/59 99 Intake and Output 11/24/22 11/24/22 11/25/22 14:59 22:59 06:59 Intake Total 540 Balance 540 Intake: Oral 540 Other: Voiding Method Indwelling Catheter Weight 54.431 kg 54.431 kg Results 11/24/22 23:20 11/24/22 23:20 Cardiac Enzymes 11/24/22 11/24/22 Range/Units 23:20 23:20 AST 191 H (17-59) U/L Troponin I 0.052 H* (0.000-0.034) ng/mL Coagulation 11/24/22 Range/Units 23:20 PT 12.7 H (9.0-12.0) sec APTT 35.4 H (22.0-30.0) sec CBC 11/24/22 Range/Units 23:20 WBC 16.6 H (3.8-10.6) k/uL RBC 4.17 L (4.30-5.90) m/uL Hgb 11.8 L (13.0-17.5) gm/dL Hct 38.6 L (39.0-53.0) % Plt Count 281 (150-450) k/uL Comprehensive Metabolic Panel 11/24/22 Range/Units 23:20 Sodium 134 L (137-145) mmol/L Potassium 3.6 (3.5-5.1) mmol/L Chloride 97 L (98-107) mmol/L Carbon Dioxide 22 (22-30) mmol/L BUN 115 H* (9-20) mg/dL Creatinine 2.26 H (0.66-1.25) mg/dL Glucose 116 H (74-99) mg/dL Calcium 8.5 (8.4-10.2) mg/dL AST 191 H (17-59) U/L ALT 162 H (4-49) U/L Alkaline Phosphatase 300 H (38-126) U/L Total Protein 6.6 (6.3-8.2) g/dL Albumin 3.2 L (3.5-5.0) g/dL Current Medications Generic Name Dose Route Start Last Admin Trade Name Freq PRN Reason Stop Dose Admin Albuterol/Ipratropium 3 ml 11/24/22 22:33 Ipratropium-Albuterol 3 Ml Neb INHALATION RT-QID PRN Shortness Of Breath Or Wheezing Hydromorphone HCl 1 mg 11/24/22 22:33 11/25/22 02:17 Hydromorphone 1 Mg/Ml 1 Ml Syringe IVP 1 mg Q4HR PRN Administration Pain Sodium Chloride 1,000 mls @ 75 mls/hr 11/24/22 22:28 11/24/22 23:00 Saline 0.9% IV 11/25/22 11:47 75 mls/hr .[id number] STA Administration Ketorolac Tromethamine 15 mg 11/24/22 22:28 Ketorolac 15 Mg/Ml 1 Ml Vial IVP 11/27/22 22:32 Q6HR PRN Moderate Pain (Scale 4 to 6) Miscellaneous Information 1 each 11/24/22 22:33 Vancomycin Iv Per Pharmacy 1 Each [facility] [place] MISCELLANE DIRECTED PRN Per Protocol Protocol Naloxone HCl 0.2 mg 11/24/22 22:28 Naloxone 0.4 Mg/Ml 1 Ml Vial IV Q2M PRN Opioid Reversal Ondansetron HCl 4 mg 11/24/22 22:28 Ondansetron 4 Mg/2 Ml Vial IVP Q8HR PRN Nausea And Vomiting Pantoprazole Sodium 40 mg 11/25/22 09:00 Pantoprazole 40 Mg/10 Ml Vial IV DAILY LORI Intake and Output 11/24/22 11/24/22 11/25/22 14:59 22:59 06:59 Intake Total 540 Balance 540 Intake: Oral 540 Other: Voiding Method Indwelling Catheter Weight 54.431 kg 54.431 kg Patient Weight 11/25/22 06:59 Weight 54.431 kg 11/24/22 23:20 11/24/22 23:20
[2022-11-25] MEDS: MIDODRINE 5 MG TAB PO SCH ×3 (06:23→16:56)
[2022-11-25 08:06] LABS: Anisocytosis Slight; Basophils % (A) 0 %; Eosinophils # (A) 0.1 k/uL (0-0.7); Eosinophils % (A) 1 %; HCT 35.7 % (39.0-53.0); HGB 10.7 gm/dL (13.0-17.5); Hypochromasia Marked; Lymphocytes # (A) 0.5 k/uL (1.0-4.8); Lymphocytes % (A) 4 %; MCH 29.3 pg (25.0-35.0); Macrocytosis Slight; Mean Platelet Volume 8.8; Monocytes # (A) 0.4 k/uL (0-1.0); Monocytes % (A) 3 %; Neutrophils # (A) 11.8 k/uL (1.3-7.7); Neutrophils % (A) 91 %; Platelet Count 199 k/uL (150-450); RBC 3.66 m/uL (4.30-5.90); RDW 16.6 % (11.5-15.5)
[2022-11-25 08:13] LABS: MCV 97.7 fL (80.0-100.0)
[2022-11-25 08:19] LABS: ALT 125 U/L (4-49); AST 113 U/L (17-59); African American GFR (CKD) 37 (>60 ml/min/1.73 sqM); Albumin 2.9 g/dL (3.5-5.0); Alkaline Phosphatase 231 U/L (38-126); Anion Gap 13 mmol/L; Calcium 8.1 mg/dL (8.4-10.2); Carbon Dioxide 19 mmol/L (22-30); Chloride 104 mmol/L (98-107); Glucose 98 mg/dL (74-99); Magnesium 2.4 mg/dL (1.6-2.3); Non-African American GFR(CKD) 32 (>60 ml/min/1.73 sqM); Potassium 3.7 mmol/L (3.5-5.1); Sodium 136 mmol/L (137-145); Total Bilirubin 1.1 mg/dL (0.2-1.3); Total Protein 6.1 g/dL (6.3-8.2)
[2022-11-25 08:27] LABS: Blood Urea Nitrogen 113 mg/dL (9-20)
--- NOTE | 2022-11-25 09:59 | XR ---
EXAMINATION TYPE: XR chest 1V DATE OF EXAM: 11/25/2022 9:40 AM COMPARISON: Chest radiographs from 08/19/2022 TECHNIQUE: XR chest 1V Frontal view of the chest. CLINICAL INDICATION:Male, 72 years old with history of CHF; FINDINGS: Lungs/Pleura: Similar appearing right upper lung airspace opacities given differences in technique. T here is no evidence of pleural effusion, or pneumothorax. Pulmonary vascularity: Unremarkable. Heart/mediastinum: Cardiomediastinal silhouette is unremarkable. Musculoskeletal: No acute osseous pathology. IMPRESSION: Right upper lung airspace opacities given differences in technique. No significant change from prior.
--- NOTE | 2022-11-25 10:01 | US ---
EXAMINATION TYPE: US arterial LE single level DATE OF EXAM: 11/25/2022 9:35 AM CLINICAL INDICATION: Male, 72 years old with history of left blackened toes; patient has left foot an d lower leg wrapped due to spreading infection History of: Smoker: previous Hypertension: yes Diabetic: no Hyperlipidemia: no TIA/CVA: no Previous Vascular Surgery: no CAD: no OK: no Vascular Ulcers: left foot Claudication: no Gangrene: possible on the left Doppler Waveforms: Right: Biphasic Left: Monophasic Right Brachial Pressure: 122 Left Brachial Pressure: 114 Ankle-Brachial Indices: Right: 0.8 (Vessel hardening > 1.4; Normal 0.9 - 1.4, Moderate 0.7 - 0.9, Severe 0.5-0.7) Left: N/A - has faint, audible signal at DP but could not obtain accurate pressure Toe Brachial Indices: Right: no signal detected Left: bandaged IMPRESSION: 1. Extremely limited exam on the left, no ankle-brachial indices able to be obtained. 2. Right ankle-brachial indices compatible with moderate atherosclerosis.
[2022-11-25] MEDS: PANTOPRAZOLE 40 MG/10 ML VIAL IV SCH (10:30)
[2022-11-25] MEDS: METOPROLOL SUCCINATE (ER) 25 MG TAB.ER.24H PO SCH (10:31)
--- NOTE | 2022-11-25 11:11 | P.HPIM ---
History of Present Illness 72-year-old male with severe non- ischemic cardiomyopathy with the EF of around 20-25% came in with the complaints of cyanosis of the left toe and patient has multiple ulcerations in the left foot. Patient follows up with wound care as an outpatient patient was given a dose of Vanco and cefepime was subsequently admitted. Patient denied any dizziness lightheadedness denied any chest pain patient is a thin built, E masticated, denied any chest pain, denied any cough fever chills. REVIEW OF SYSTEMS: All other review of systems are negative except those mentioned above PHYSICAL EXAMINATION: GENERAL: The patient is alert and oriented x3, not in any acute distress. Thin built male HEENT: Pupils are round and equally reacting to light. EOMI. No scleral icterus. No conjunctival pallor. Normocephalic, atraumatic. No ph aryngeal erythema. No thyromegaly. CARDIOVASCULAR: S1 and S2 present. No murmurs, rubs, or gallops. PULMONARY: Chest is clear to auscultation, no wheezing or crackles. ABDOMEN: Soft, nontender, nondistended, normoactive bowel sounds. No palpable organomegaly. MUSCULOSKELETAL: No joint swelling or deformity. EXTREMITIES: No cyanosis, clubbing, or pedal edema. NEUROLOGICAL: Gross neurological examination did not reveal any focal deficits. SKIN: Patient left foot is wrapped with gauze Assessment and plan -Peripheral vascular disease with the possibility of ischemia, unfortunately ultrasound of the left lower extremity is not informative. We will monitor the patient -Possible infected left lower extremity arterial ulcers: Infectious disease will be consulted will await their recommendations for antibiotics patient was given a dose of Vanco and cefepime any R -Persistent atrial fibrillation presently rate controlled on anticoagulation is on hold because of her persistent bleeding from the scalp -Congestive heart failure chronic systolic dysfunction you of around 20-25% patient is probably mild will continue will hold off on Lasix medications are not verified yet, BNP although is highly elevated -Hypotension secondary to congestive heart failure and possible hypovolemia -Acute renal failure: Secondary to hypovolemia and hypotension -Chronic kidney disease stage IV probably secondary to cardiorenal syndrome -Hyperlipidemia DVT prophylaxis: Anticoagulation is being temporally held because of uncontrolled bleeding from the scalp Past Medical History Past Medical History: Atrial Fibrillation, COPD, Diabetes Mellitus, Deep Vein Th rombosis (DVT), Pulmonary Embolus (PE) Additional Past Medical History / Comment(s): osteolmyelitis, SKIN CA; urinary retention History of Any Multi-Drug Resistant Organisms: None Reported Past Surgical History: Cholecystectomy Additional Past Surgical History / Comment(s): Lumbar back surgery Past Anesthesia/Blood Transfusion Reactions: Previous Problems w/ Anesthesia Additional Past Anesthesia/Blood Transfusion Reaction / Comment(s): "Hard to w nicolas up" Past Psychological History: No Psychological Hx Reported Smoking Status: Former smoker Past Alcohol Use History: None Reported Past Drug Use History: None Reported - Past Family History Father Family Medical History: Diabetes Mellitus Medications and Allergies Home Medications Medication Instructions Recorded Confirmed Type Atorvastatin [Lipitor] 40 mg PO DAILY 08/19/22 08/19/22 History Cetirizine HCl 10 mg PO DAILY 08/19/22 08/19/22 History Cyanocobalamin [Vitamin B-12] 500 mcg PO DAILY 08/19/22 08/19/22 History Furosemide [Lasix] 80 mg PO BID 08/19/22 08/19/22 History Montelukast [Singulair] 10 mg PO DAILY 08/19/22 08/19/22 History Apixaban [Eliquis] 5 mg PO BID #60 tab 08/23/22 Rx Dapagliflozin Propanediol [Farxiga] 10 mg PO DAILY #30 tab 08/23/22 Rx Metoprolol Tartrate [Lopressor] 75 mg PO TID #270 tab 08/23/22 Rx Midodrine [ProAmatine] 5 mg PO AC-TID #90 tab 08/23/22 Rx Spironolactone [Aldactone] 12.5 mg PO DAILY #15 tab 08/23/22 Rx Allergies Allergy/AdvReac Type Severity Reaction Status Date / Time morphine Allergy Unknown Verified 11/24/22 21:17 Physical Exam Vitals: Vital Signs Temp Pulse Pulse Resp BP BP Pulse Ox 11/25/22 09:18 93 L 11/25/22 08:10 97.5 F L 118 H 19 86/57 100 11/25/22 02:00 98.1 F 69 16 87/63 90 L 11/25/22 00:51 108 H 11/25/22 00:45 110 H 18 108/72 98 11/25/22 00:43 104 H 11/25/22 00:42 91 L 11/24/22 22:41 109 H 18 97/74 98 11/24/22 21:18 97.1 F L 116 H 18 84/59 99 Intake and Output 11/24/22 11/25/22 11/25/22 22:59 06:59 14:59 Intake Total 1080 780 Output Total 100 Balance 980 780 Intake: Oral 1080 780 Output: Urine 100 Other: Voiding Method Indwelling Catheter Weight 54.431 kg 54.431 kg Results CBC & Chem 7: 11/25/22 07:10 11/25/22 07:10 Labs: Abnormal Lab Results - Last 24 Hours (Table) 11/24/22 11/24/22 11/24/22 Range/Units 23:20 23:20 23:20 WBC 16.6 H (3.8-10.6) k/uL RBC 4.17 L (4.30-5.90) m/uL Hgb 11.8 L (13.0-17.5) gm/dL Hct 38.6 L (39.0-53.0) % MCHC 30.7 L (31.0-37.0) g/dL RDW 17.1 H (11.5-15.5) % Neutrophils # 15.2 H (1.3-7.7) k/uL Lymphocytes # 0.6 L (1.0-4.8) k/uL PT 12.7 H (9.0-12.0) sec INR 1.2 H (<1.2) APTT 35.4 H (22.0-30.0) sec Sodium 134 L (137-145) mmol/L Chloride 97 L (98-107) mmol/L Carbon Dioxide (22-30) mmol/L BUN 115 H* (9-20) mg/dL Creatinine 2.26 H (0.66-1.25) mg/dL Glucose 116 H (74-99) mg/dL Calcium (8.4-10.2) mg/dL Magnesium 2.4 H (1.6-2.3) mg/dL AST 191 H (17-59) U/L ALT 162 H (4-49) U/L Alkaline Phosphatase 300 H (38-126) U/L Troponin I (0.000-0.034) ng/mL Total Protein (6.3-8.2) g/dL Albumin 3.2 L (3.5-5.0) g/dL Urine Protein (Negative) Urine Blood (Negative) Ur Leukocyte Esterase (Negative) Urine RBC (0-5) /hpf Urine WBC (0-5) /hpf Urine WBC Clumps (None) /hpf Calcium Oxalate Crystal (None) /hpf Hyaline Casts (0-2) /lpf Urine Mucus (None) /hpf Urine Yeast (Budding) (None) /hpf 11/24/22 11/25/22 11/25/22 Range/Units 23:20 03:12 07:10 WBC 13.0 H (3.8-10.6) k/uL RBC 3.66 L (4.30-5.90) m/uL Hgb 10.7 L (13.0-17.5) gm/dL Hct 35.7 L (39.0-53.0) % MCHC 30.0 L (31.0-37.0) g/dL RDW 16.6 H (11.5-15.5) % Neutrophils # 11.8 H (1.3-7.7) k/uL Lymphocytes # 0.5 L (1.0-4.8) k/uL PT (9.0-12.0) sec INR (<1.2) APTT (22.0-30.0) sec Sodium (137-145) mmol/L Chloride (98-107) mmol/L Carbon Dioxide (22-30) mmol/L BUN (9-20) mg/dL Creatinine (0.66-1.25) mg/dL Glucose (74-99) mg/dL Calcium (8.4-10.2) mg/dL Magnesium (1.6-2.3) mg/dL AST (17-59) U/L ALT (4-49) U/L Alkaline Phosphatase (38-126) U/L Troponin I 0.052 H* (0.000-0.034) ng/mL Total Protein (6.3-8.2) g/dL Albumin (3.5-5.0) g/dL Urine Protein Trace H (Negative) Urine Blood Large H (Negative) Ur Leukocyte Esterase Large H (Negative) Urine RBC 56 H (0-5) /hpf Urine WBC 180 H (0-5) /hpf Urine WBC Clumps Many H (None) /hpf Calcium Oxalate Crystal Occasional H (None) /hpf Hyaline Casts 3 H (0-2) /lpf Urine Mucus Rare H (None) /hpf Urine Yeast (Budding) Many H (None) /hpf 11/25/22 11/25/22 Range/Units 07:10 07:10 WBC (3.8-10.6) k/uL RBC (4.30-5.90) m/uL Hgb (13.0-17.5) gm/dL Hct (39.0-53.0) % MCHC (31.0-37.0) g/dL RDW (11.5-15.5) % Neutrophils # (1.3-7.7) k/uL Lymphocytes # (1.0-4.8) k/uL PT (9.0-12.0) sec INR (<1.2) APTT (22.0-30.0) sec Sodium 136 L (137-145) mmol/L Chloride (98-107) mmol/L Carbon Dioxide 19 L (22-30) mmol/L BUN 113 H* (9-20) mg/dL Creatinine 2.06 H (0.66-1.25) mg/dL Glucose (74-99) mg/dL Calcium 8.1 L (8.4-10.2) mg/dL Magnesium 2.4 H (1.6-2.3) mg/dL AST 113 H (17-59) U/L ALT 125 H (4-49) U/L Alkaline Phosphatase 231 H (38-126) U/L Troponin I 0.048 H* (0.000-0.034) ng/mL Total Protein 6.1 L (6.3-8.2) g/dL Albumin 2.9 L (3.5-5.0) g/dL Urine Protein (Negative) Urine Blood (Negative) Ur Leukocyte Esterase (Negative) Urine RBC (0-5) /hpf Urine WBC (0-5) /hpf Urine WBC Clumps (None) /hpf Calcium Oxalate Crystal (None) /hpf Hyaline Casts (0-2) /lpf Urine Mucus (None) /hpf Urine Yeast (Budding) (None) /hpf
[2022-11-25 11:32] LABS: Glucose,Whole Blood 154 mg/dL (70-110)
[2022-11-25 12:33] VITALS: BMI 17.2
--- NOTE | 2022-11-25 14:50 | P.GSCN ---
History of Present Illness Consult date: 11/25/22 History of present illness: Patient is a 72-year-old male with multiple severe medical comorbidities including severe nonischemic cardiomyopathy with an EF of 20-25, COPD, diabetes, atrial fibrillation, COPD or, likely cardiorenal syndrome, hypotension, 70 pound weight loss who presented to the ER with concern over left lower extremity wounds. They haven't going on for a while but have had worsened coloration with blackening of the toes. He has some discomfort in the foot. 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 He has not had any routine wound care performed that he is aware of. He denies any previous vascular interventions. He follows a pedodontist at [facility]. He denies any fevers, chills, nausea or vomiting Past Medical History Past Medical History: Atrial Fibrillation, COPD, Diabetes Mellitus, Deep Vein Thrombosis (DVT), Pulmonary Embolus (PE) Additional Past Medical History / Comment(s): osteolmyelitis, SKIN CA; urinary retention History of Any Multi-Drug Resistant Organisms: None Reported Past Surgical History: Cholecystectomy Additional Past Surgical History / Comment(s): Lumbar back surgery Past Anesthesia/Blood Transfusion Reactions: Previous Problems w/ Anesthesia Additional Past Anesthesia/Blood Transfusion Reaction / Comm: "Hard to wake up" Past Psychological History: No Psychological Hx Reported Smoking Status: Former smoker Past Alcohol Use History: None Reported Past Drug Use History: None Reported - Past Family History Father Family Medical History: Diabetes Mellitus Medications and Allergies Home Medications Medication Instructions Recorded Confirmed Type Atorvastatin [Lipitor] 40 mg PO DAILY 08/19/22 11/25/22 History Cetirizine HCl 10 mg PO DAILY 08/19/22 11/25/22 History Cyanocobalamin [Vitamin B-12] 500 mcg PO DAILY 08/19/22 11/25/22 History Furosemide [Lasix] 80 mg PO BID 08/19/22 11/25/22 History Montelukast [Singulair] 10 mg PO DAILY 08/19/22 11/25/22 History Apixaban [Eliquis] 5 mg PO BID #60 tab 08/23/22 11/25/22 Rx Dapagliflozin Propanediol [Farxiga] 10 mg PO DAILY #30 tab 08/23/22 11/25/22 Rx Midodrine [ProAmatine] 5 mg PO AC-TID #90 tab 08/23/22 11/25/22 Rx Spironolactone [Aldactone] 12.5 mg PO DAILY #15 tab 08/23/22 11/25/22 Rx Folic Acid 1 mg PO DAILY 11/25/22 11/25/22 History Metoprolol Tartrate [Lopressor] 25 mg PO BID 11/25/22 11/25/22 History cefUROXime axetiL [Ceftin] 500 mg PO BID 11/25/22 11/25/22 History Allergies Allergy/AdvReac Type Severity Reaction Status Date / Time morphine Allergy Unknown Verified 11/25/22 14:37 Surgical - Exam Vital Signs Temp Pulse Resp BP Pulse Ox 97.1 F L 116 H 18 84/59 99 11/24/22 21:18 11/24/22 21:18 11/24/22 21:18 11/24/22 21:18 11/24/22 21:18 Gen. is a frail and thin chronically ill-appearing male in no acute distress with significant muscular wasting. HEENT shows large defect of the scalp with slow oozing. Lungs are clear no respiratory distress abdomen is scaphoid, soft, ribs or protuberant, extremities show no clubbing or edema. He has difficult to palpate a weakly palpable femoral pulses bilaterally. No palpable pedal pulses. Significant muscular wasting throughout the bilateral lower extremities. Left foot with multiple areas of eschar, tendon exposed at the great toe. No obvious areas of purulent drainage or fluctuance. Results Lower extremity arterial Dopplers are reviewed. Likely severe disease with noncompressibility, waveforms are abnormal - Labs 11/25/22 07:10 11/25/22 07:10 Abnormal Lab Results - Last 24 Hours (Table) 11/24/22 11/24/22 11/24/22 Range/Units 23:20 23:20 23:20 WBC 16.6 H (3.8-10.6) k/uL RBC 4.17 L (4.30-5.90) m/uL Hgb 11.8 L (13.0-17.5) gm/dL Hct 38.6 L (39.0-53.0) % MCHC 30.7 L (31.0-37.0) g/dL RDW 17.1 H (11.5-15.5) % Neutrophils # 15.2 H (1.3-7.7) k/uL Lymphocytes # 0.6 L (1.0-4.8) k/uL PT 12.7 H (9.0-12.0) sec INR 1.2 H (<1.2) APTT 35.4 H (22.0-30.0) sec Sodium 134 L (137-145) mmol/L Chloride 97 L (98-107) mmol/L Carbon Dioxide (22-30) mmol/L BUN 115 H* (9-20) mg/dL Creatinine 2.26 H (0.66-1.25) mg/dL Glucose 116 H (74-99) mg/dL POC Glucose (mg/dL) (70-110) mg/dL Calcium (8.4-10.2) mg/dL Magnesium 2.4 H (1.6-2.3) mg/dL AST 191 H (17-59) U/L ALT 162 H (4-49) U/L Alkaline Phosphatase 300 H (38-126) U/L Troponin I (0.000-0.034) ng/mL Total Protein (6.3-8.2) g/dL Albumin 3.2 L (3.5-5.0) g/dL Urine Protein (Negative) Urine Blood (Negative) Ur Leukocyte Esterase (Negative) Urine RBC (0-5) /hpf Urine WBC (0-5) /hpf Urine WBC Clumps (None) /hpf Calcium Oxalate Crystal (None) /hpf Hyaline Casts (0-2) /lpf Urine Mucus (None) /hpf Urine Yeast (Budding) (None) /hpf 11/24/22 11/25/22 11/25/22 Range/Units 23:20 03:12 07:10 WBC 13.0 H (3.8-10.6) k/uL RBC 3.66 L (4.30-5.90) m/uL Hgb 10.7 L (13.0-17.5) gm/dL Hct 35.7 L (39.0-53.0) % MCHC 30.0 L (31.0-37.0) g/dL RDW 16.6 H (11.5-15.5) % Neutrophils # 11.8 H (1.3-7.7) k/uL Lymphocytes # 0.5 L (1.0-4.8) k/uL PT (9.0-12.0) sec INR (<1.2) APTT (22.0-30.0) sec Sodium (137-145) mmol/L Chloride (98-107) mmol/L Carbon Dioxide (22-30) mmol/L BUN (9-20) mg/dL Creatinine (0.66-1.25) mg/dL Glucose (74-99) mg/dL POC Glucose (mg/dL) (70-110) mg/dL Calcium (8.4-10.2) mg/dL Magnesium (1.6-2.3) mg/dL AST (17-59) U/L ALT (4-49) U/L Alkaline Phosphatase (38-126) U/L Troponin I 0.052 H* (0.000-0.034) ng/mL Total Protein (6.3-8.2) g/dL Albumin (3.5-5.0) g/dL Urine Protein Trace H (Negative) Urine Blood Large H (Negative) Ur Leukocyte Esterase Large H (Negative) Urine RBC 56 H (0-5) /hpf Urine WBC 180 H (0-5) /hpf Urine WBC Clumps Many H (None) /hpf Calcium Oxalate Crystal Occasional H (None) /hpf Hyaline Casts 3 H (0-2) /lpf Urine Mucus Rare H (None) /hpf Urine Yeast (Budding) Many H (None) /hpf 11/25/22 11/25/22 11/25/22 Range/Units 07:10 07:10 11:29 WBC (3.8-10.6) k/uL RBC (4.30-5.90) m/uL Hgb (13.0-17.5) gm/dL Hct (39.0-53.0) % MCHC (31.0-37.0) g/dL RDW (11.5-15.5) % Neutrophils # (1.3-7.7) k/uL Lymphocytes # (1.0-4.8) k/uL PT (9.0-12.0) sec INR (<1.2) APTT (22.0-30.0) sec Sodium 136 L (137-145) mmol/L Chloride (98-107) mmol/L Carbon Dioxide 19 L (22-30) mmol/L BUN 113 H* (9-20) mg/dL Creatinine 2.06 H (0.66-1.25) mg/dL Glucose (74-99) mg/dL POC Glucose (mg/dL) 154 H (70-110) mg/dL Calcium 8.1 L (8.4-10.2) mg/dL Magnesium 2.4 H (1.6-2.3) mg/dL AST 113 H (17-59) U/L ALT 125 H (4-49) U/L Alkaline Phosphatase 231 H (38-126) U/L Troponin I 0.048 H* (0.000-0.034) ng/mL Total Protein 6.1 L (6.3-8.2) g/dL Albumin 2.9 L (3.5-5.0) g/dL Urine Protein (Negative) Urine Blood (Negative) Ur Leukocyte Esterase (Negative) Urine RBC (0-5) /hpf Urine WBC (0-5) /hpf Urine WBC Clumps (None) /hpf Calcium Oxalate Crystal (None) /hpf Hyaline Casts (0-2) /lpf Urine Mucus (None) /hpf Urine Yeast (Budding) (None) /hpf Diabetes panel 11/24/22 11/25/22 Range/Units 23:20 07:10 Sodium 134 L 136 L (137-145) mmol/L Potassium 3.6 3.7 (3.5-5.1) mmol/L Chloride 97 L 104 (98-107) mmol/L Carbon Dioxide 22 19 L (22-30) mmol/L BUN 115 H* 113 H* (9-20) mg/dL Creatinine 2.26 H 2.06 H (0.66-1.25) mg/dL Glucose 116 H 98 (74-99) mg/dL Calcium 8.5 8.1 L (8.4-10.2) mg/dL AST 191 H 113 H (17-59) U/L ALT 162 H 125 H (4-49) U/L Alkaline Phosphatase 300 H 231 H (38-126) U/L Total Protein 6.6 6.1 L (6.3-8.2) g/dL Albumin 3.2 L 2.9 L (3.5-5.0) g/dL Calcium panel 11/24/22 11/25/22 Range/Units 23:20 07:10 Calcium 8.5 8.1 L (8.4-10.2) mg/dL Phosphorus 3.5 4.0 (2.5-4.5) mg/dL Albumin 3.2 L 2.9 L (3.5-5.0) g/dL Pituitary panel 11/24/22 11/25/22 Range/Units 23:20 07:10 Sodium 134 L 136 L (137-145) mmol/L Potassium 3.6 3.7 (3.5-5.1) mmol/L Chloride 97 L 104 (98-107) mmol/L Carbon Dioxide 22 19 L (22-30) mmol/L BUN 115 H* 113 H* (9-20) mg/dL Creatinine 2.26 H 2.06 H (0.66-1.25) mg/dL Glucose 116 H 98 (74-99) mg/dL Calcium 8.5 8.1 L (8.4-10.2) mg/dL Adrenal panel 11/24/22 11/25/22 Range/Units 23:20 07:10 Sodium 134 L 136 L (137-145) mmol/L Potassium 3.6 3.7 (3.5-5.1) mmol/L Chloride 97 L 104 (98-107) mmol/L Carbon Dioxide 22 19 L (22-30) mmol/L BUN 115 H* 113 H* (9-20) mg/dL Creatinine 2.26 H 2.06 H (0.66-1.25) mg/dL Glucose 116 H 98 (74-99) mg/dL Calcium 8.5 8.1 L (8.4-10.2) mg/dL Total Bilirubin 1.3 1.1 (0.2-1.3) mg/dL AST 191 H 113 H (17-59) U/L ALT 162 H 125 H (4-49) U/L Alkaline Phosphatase 300 H 231 H (38-126) U/L Total Protein 6.6 6.1 L (6.3-8.2) g/dL Albumin 3.2 L 2.9 L (3.5-5.0) g/dL Assessment and Plan Assessment: Blossom 5 peripheral vascular disease Left lower extremity wounds, likely due to arterial insufficiency, no obvious areas of infection Severe significant medical comorbidities including congestive heart failure, chronic kidney disease, elevated liver enzymes, elevated BNP, protein calorie malnutrition albumin of 2.9, low total protein 6.1, likely volume depleted/h ypovolemic as well Plan: Patient has severe peripheral vascular disease owing to some of his nonhealing wounds. We had a long discussion regarding options. In order to undergo any sort of intervention, would need appropriate clearance from nephrology to see if patient is able to undergo CT angiogram with runoff versus catheter directed angiogram versus angiogram with CO2. He has significant medical comorbidities that likely would preclude him from any aggressive interventions. He also discussed the possibility of amputation, patient is currently full code, would hope for goals of care discussion given his overall clinical picture and severely poor prognosis given his multisystem involvement/organ failure
[2022-11-25 16:25] LABS: Glucose,Whole Blood 168 mg/dL (70-110)
[2022-11-25] MEDS: INSULIN ASPART (NovoLOG) 100 UNIT/ML VIAL SQ SCH ×2 (16:55→20:12)
[2022-11-25 20:14] LABS: Glucose,Whole Blood 128 mg/dL (70-110)
[2022-11-25] MEDS ORDERED: VANCOMYCIN 1,000 MG in SODIUM CHLORIDE 0.9% 250 ML IVPB ONE (21:00)
[2022-11-26 06:20] LABS: Glucose,Whole Blood 108 mg/dL (70-110)
[2022-11-26] MEDS: INSULIN ASPART (NovoLOG) 100 UNIT/ML VIAL SQ SCH ×4 (06:25→20:47)
[2022-11-26] MEDS: MIDODRINE 5 MG TAB PO SCH ×3 (06:27→17:49)
[2022-11-26 07:05] LABS: Anisocytosis Slight; HCT 34.4 % (39.0-53.0); HGB 10.6 gm/dL (13.0-17.5); Hypochromasia Moderate; MCH 29.4 pg (25.0-35.0); MCHC 30.8 g/dL (31.0-37.0); MCV 95.6 fL (80.0-100.0); Mean Platelet Volume 8.3; Platelet Count 221 k/uL (150-450); RDW 16.9 % (11.5-15.5); WBC 14.3 k/uL (3.8-10.6)
[2022-11-26 07:14] LABS: African American GFR (CKD) 49 (>60 ml/min/1.73 sqM); Anion Gap 8 mmol/L; Blood Urea Nitrogen 87 mg/dL (9-20); Calcium 8.3 mg/dL (8.4-10.2); Carbon Dioxide 22 mmol/L (22-30); Chloride 106 mmol/L (98-107); Glucose 98 mg/dL (74-99); Magnesium 2.1 mg/dL (1.6-2.3); Non-African American GFR(CKD) 42 (>60 ml/min/1.73 sqM); Potassium 3.8 mmol/L (3.5-5.1); Sodium 136 mmol/L (137-145)
--- NOTE | 2022-11-26 07:30 | P.PN ---
Subjective Progress Note Date: 11/26/22 Principal diagnosis: Atrial fibrillation The patient is a pleasant 72-year-old gentleman who was known to our service from before currently follows with a financial institution vice president at [facility] with a past medical history significant for severe nonischemic cardiomyopathy with EF around 20-25% with moderate to severe mitral regurgitation as well as permanent atrial for the patient as well as multiple comorbid conditions was brought to the hospital by his family/daughter for left foot discomfort and changing in the color. This happened about a week ago. The patient and his family noticed black toes on the left side. He started having some discomfort in the left foot as well. No pain in the chest and no shortness of breath and no dizziness or lightheadedness and no feeling of heart racing or fluttering. He is known to have permanent pictures the patient and he stated that he has been compliant with oral anticoagulation. We consulted to see the patient for further e valuation of atrial fibrillation. Currently the patient is height both intensive and his heart rate has been around 100 bpm he was receiving midodrine as an outpatient which I'm going to start. He is also on oral anticoagulation but I am holding on starting that right now because the patient is having bleeding from the cancer on the scalp. He also underwent further evaluation including blood work showed elevated creatinine and he is known to have chronic kidney disease and also elevated liver function tests. 11/26/2022 The patient was seen and evaluated this morning. The heart rate appeared to be under better control after adding small dose of beta carlitos. Going to restart him on a small dose of oral anticoagulation since he has not been having any bleeding from the scalp. Also he underwent lower extremity is arterial duplex study which was extremely limited but he was seen by the vascular surgery service and deemed to be not a candidate to undergo any further investigation like CT angiogram at this point for that reason I'm going to restart him back on oral anticoagulation. Infectious disease also on the case regarding the left foot ulcer/infection. The pressure appeared to be marginal. From the cardiovascular standpoint of view, I would continue the current medical regimen. The examination the patient has low blood pressure. He is euvolemic. He does have irregular rhythm with a systolic murmur and the left foot appeared to be wrapped. Assessment Acute limb ischemia of the left foot Severe cardiomyopathy appears to be nonischemic Permanent atrial fibrillation with controlled heart rate Hypotension which has improved Elevated liver function tests Acute on chronic renal failure Bleeding from skin cancer on the scalp Plan Continue the current medical regimen Restart the patient back on oral anticoagulation Continue the current dose of metoprolol Follow-up with the patient on when necessary case Objective - Vital Signs Vital signs: Vital Signs Temp 97.9 F 11/25/22 20:00 Pulse 117 H 11/26/22 04:00 Resp 16 11/26/22 04:00 BP 100/61 11/26/22 04:00 Pulse Ox 100 11/26/22 04:00 FiO2 Intake & Output 11/25/22 11/26/22 11/26/22 18:59 06:59 18:59 Intake Total 1135 540 Output Total 700 800 Balance 435 -260 Weight 54.431 kg Intake: Oral 1135 540 Output: Urine 700 800 Other: Voiding Method Indwelling Catheter Indwelling Catheter - Labs CBC & Chem 7: 11/26/22 06:48 11/26/22 06:48 Labs: Abnormal Lab Results - Last 24 Hours (Table) 11/25/22 11/25/22 11/25/22 Range/Units 07:10 07:10 07:10 WBC 13.0 H (3.8-10.6) k/uL RBC 3.66 L (4.30-5.90) m/uL Hgb 10.7 L (13.0-17.5) gm/dL Hct 35.7 L (39.0-53.0) % MCHC 30.0 L (31.0-37.0) g/dL RDW 16.6 H (11.5-15.5) % Neutrophils # 11.8 H (1.3-7.7) k/uL Lymphocytes # 0.5 L (1.0-4.8) k/uL Sodium 136 L (137-145) mmol/L Carbon Dioxide 19 L (22-30) mmol/L BUN 113 H* (9-20) mg/dL Creatinine 2.06 H (0.66-1.25) mg/dL POC Glucose (mg/dL) (70-110) mg/dL Calcium 8.1 L (8.4-10.2) mg/dL Magnesium 2.4 H (1.6-2.3) mg/dL AST 113 H (17-59) U/L ALT 125 H (4-49) U/L Alkaline Phosphatase 231 H (38-126) U/L Troponin I 0.048 H* (0.000-0.034) ng/mL Total Protein 6.1 L (6.3-8.2) g/dL Albumin 2.9 L (3.5-5.0) g/dL 11/25/22 11/25/22 11/25/22 Range/Units 11:29 16:22 20:12 WBC (3.8-10.6) k/uL RBC (4.30-5.90) m/uL Hgb (13.0-17.5) gm/dL Hct (39.0-53.0) % MCHC (31.0-37.0) g/dL RDW (11.5-15.5) % Neutrophils # (1.3-7.7) k/uL Lymphocytes # (1.0-4.8) k/uL Sodium (137-145) mmol/L Carbon Dioxide (22-30) mmol/L BUN (9-20) mg/dL Creatinine (0.66-1.25) mg/dL POC Glucose (mg/dL) 154 H 168 H 128 H (70-110) mg/dL Calcium (8.4-10.2) mg/dL Magnesium (1.6-2.3) mg/dL AST (17-59) U/L ALT (4-49) U/L Alkaline Phosphatase (38-126) U/L Troponin I (0.000-0.034) ng/mL Total Protein (6.3-8.2) g/dL Albumin (3.5-5.0) g/dL 11/26/22 11/26/22 Range/Units 06:48 06:48 WBC 14.3 H (3.8-10.6) k/uL RBC 3.60 L (4.30-5.90) m/uL Hgb 10.6 L (13.0-17.5) gm/dL Hct 34.4 L (39.0-53.0) % MCHC 30.8 L (31.0-37.0) g/dL RDW 16.9 H (11.5-15.5) % Neutrophils # (1.3-7.7) k/uL Lymphocytes # (1.0-4.8) k/uL Sodium 136 L (137-145) mmol/L Carbon Dioxide (22-30) mmol/L BUN 87 H (9-20) mg/dL Creatinine 1.63 H (0.66-1.25) mg/dL POC Glucose (mg/dL) (70-110) mg/dL Calcium 8.3 L (8.4-10.2) mg/dL Magnesium (1.6-2.3) mg/dL AST (17-59) U/L ALT (4-49) U/L Alkaline Phosphatase (38-126) U/L Troponin I (0.000-0.034) ng/mL Total Protein (6.3-8.2) g/dL Albumin (3.5-5.0) g/dL
--- NOTE | 2022-11-26 08:42 | P.PN ---
Subjective Progress Note Date: 11/26/22 Patient seen and examined. No complaints. No changes or concerns overnight Objective - Vital Signs Vital signs: Vital Signs Temp 97.9 F 11/25/22 20:00 Pulse 117 H 11/26/22 04:00 Resp 16 11/26/22 04:00 BP 100/61 11/26/22 04:00 Pulse Ox 100 11/26/22 04:00 FiO2 Intake & Output 11/25/22 11/26/22 11/26/22 18:59 06:59 18:59 Intake Total 1135 540 237 Output Total 700 800 Balance 435 -260 237 Weight 54.431 kg Intake: Oral 1135 540 237 Output: Urine 700 800 Other: Voiding Method Indwelling Catheter Indwelling Catheter - Exam Frail sickly appearing male in no acute distress. Heart is irregularly irregular. Lungs without respiratory distress. Scalp wound open. Very weakly palpable femoral pulses. No palpable pedal pulses. Wounds remained similar to previous. - Labs CBC & Chem 7: 11/26/22 06:48 11/26/22 06:48 Labs: Abnormal Lab Results - Last 24 Hours (Table) 11/25/22 11/25/22 11/25/22 Range/Units 07:10 11:29 16:22 WBC (3.8-10.6) k/uL RBC (4.30-5.90) m/uL Hgb (13.0-17.5) gm/dL Hct (39.0-53.0) % MCHC (31.0-37.0) g/dL RDW (11.5-15.5) % Sodium (137-145) mmol/L BUN (9-20) mg/dL Creatinine (0.66-1.25) mg/dL POC Glucose (mg/dL) 154 H 168 H (70-110) mg/dL Calcium (8.4-10.2) mg/dL Troponin I 0.048 H* (0.000-0.034) ng/mL 11/25/22 11/26/22 11/26/22 Range/Units 20:12 06:48 06:48 WBC 14.3 H (3.8-10.6) k/uL RBC 3.60 L (4.30-5.90) m/uL Hgb 10.6 L (13.0-17.5) gm/dL Hct 34.4 L (39.0-53.0) % MCHC 30.8 L (31.0-37.0) g/dL RDW 16.9 H (11.5-15.5) % Sodium 136 L (137-145) mmol/L BUN 87 H (9-20) mg/dL Creatinine 1.63 H (0.66-1.25) mg/dL POC Glucose (mg/dL) 128 H (70-110) mg/dL Calcium 8.3 L (8.4-10.2) mg/dL Troponin I (0.000-0.034) ng/mL Assessment and Plan Assessment: Mleissa 5 peripheral vascular disease, no evidence of acute limb ischemia Left lower extremity wounds, likely due to arterial insufficiency, no obvious areas of infection Severe significant medical comorbidities including congestive heart failure, ch ronic kidney disease, elevated liver enzymes, elevated BNP, protein calorie malnutrition albumin of 2.9, low total protein 6.1, likely volume depleted/hypovolemic as well Plan: Patient has severe peripheral vascular disease causing his nonhealing, chronic wounds. Again We had a long discussion regarding options. In order to undergo any sort of intervention, would need appropriate clearance from nephrology to see if patient is able to undergo CT angiogram with runoff versus catheter directed angiogram versus angiogram with CO2. Again is medical comorbidities would likely preclude him from any aggressive intervention should there not be a minimally invasive option available. Even such, intervention would likely require some degree of contrast. We discussed the likelihood of causing need for dialysis if worsened renal function. We also discussed the possibility of amputation, patient is currently full code, would hope for goals of care discussion given his overall clinical picture and severely poor prognosis given his multisystem involvement/organ failure
[2022-11-26] MEDS ORDERED: VANCOMYCIN 1,000 MG in SODIUM CHLORIDE 0.9% 250 ML IVPB SCH (09:00)
[2022-11-26] MEDS: PANTOPRAZOLE 40 MG/10 ML VIAL IV SCH (09:49)
[2022-11-26] MEDS: METOPROLOL SUCCINATE (ER) 25 MG TAB.ER.24H PO SCH (09:49)
--- NOTE | 2022-11-26 11:06 | P.CONS ---
History of Present Illness - Reason for Consult Consult date: 11/25/22 L foot infection Requesting physician: Naomy Hearn - Chief Complaint L foot non healing wound and discoloration x days - History of Present Illness Patient is a 72-year-old male with a past medical history significant for diabetes mellitus COPD atrial fibrillation DVT and PE presenting to the hospital for discoloration of the left foot toes and discoloration and discomfort in the foot on the dorsal aspect patient mention has a wound that has been going on for few weeks and the patient has been following in the wound care center in the outpatient setting however with worsening discoloration the patient did presented to the hospital patient denies having any foul-smelling drainage from it patient denies high-grade fever or any chills on arrival to the ER patient was afebrile patient did have a white count of 16.6 with a left shift BUN/creatinine has been mildly elevated liver exams are normal urine was positive as well patient did have a x-ray of the foot no fracture or dislocation lower extremity ultrasound limited no ankle-brachial index I will to obtain right ankle-brachial index compatible with moderate atherosclerosis patient received cefepime and vancomycin in the subsequently has been continued on vancomycin infectious disease was consulted for further management of antibiotic therapy Review of Systems Positive point and negatives has been mentioned in the HPI, complete review of systems was performed and all other systems are negative Past Medical History Past Medical History: Atrial Fibrillation, COPD, Diabetes Mellitus, Deep Vein Thrombosis (DVT), Pulmonary Embolus (PE) Additional Past Medical History / Comment(s): osteolmyelitis, SKIN CA; urinary retention History of Any Multi-Drug Resistant Organisms: None Reported Past Surgical History: Cholecystectomy Additional Past Surgical History / Comment(s): Lumbar back surgery Past Anesthesia/Blood Transfusion Reactions: Previous Problems w/ Anesthesia Additional Past Anesthesia/Blood Transfusion Reaction / Comm: "Hard to wake up" Past Psychological History: No Psychological Hx Reported Smoking Status: Former smoker Past Alcohol Use History: None Reported Past Drug Use History: None Reported - Past Family History Father Family Medical History: Diabetes Mellitus Medications and Allergies Home Medications Medication Instructions Recorded Confirmed Type Atorvastatin [Lipitor] 40 mg PO DAILY 08/19/22 11/25/22 History Cetirizine HCl 10 mg PO DAILY 08/19/22 11/25/22 History Cyanocobalamin [Vitamin B-12] 500 mcg PO DAILY 08/19/22 11/25/22 History Furosemide [Lasix] 80 mg PO BID 08/19/22 11/25/22 History Montelukast [Singulair] 10 mg PO DAILY 08/19/22 11/25/22 History Dapagliflozin Propanediol [Farxiga] 10 mg PO DAILY #30 tab 08/23/22 11/25/22 Rx Midodrine [ProAmatine] 5 mg PO AC-TID #90 tab 08/23/22 11/25/22 Rx Spironolactone [Aldactone] 12.5 mg PO DAILY #15 tab 08/23/22 11/25/22 Rx Folic Acid 1 mg PO DAILY 11/25/22 11/25/22 History cefUROXime axetiL [Ceftin] 500 mg PO BID 11/25/22 11/25/22 History Apixaban [Eliquis] 2.5 mg PO BID tab 11/30/22 Rx Ipratropium-Albuterol Nebulize 3 ml INHALATION TID PRN #90 each 11/30/22 Rx [Duoneb 0.5 mg-3 mg/3 ml Soln] Metoprolol Succinate [Toprol XL] 25 mg PO DAILY 30 Days #15 tab 11/30/22 Rx Allergies Allergy/AdvReac Type Severity Reaction Status Date / Time morphine Allergy Unknown Verified 11/25/22 14:37 Physical Exam Vitals: Vital Signs Temp Pulse Pulse Resp BP BP Pulse Ox 11/25/22 11:19 97.7 F 106 H 17 97/54 97 11/25/22 09:18 93 L 11/25/22 08:10 97.5 F L 118 H 19 86/57 100 11/25/22 08:00 106 H 17 11/25/22 02:00 98.1 F 69 16 87/63 90 L 11/25/22 00:51 108 H 11/25/22 00:45 110 H 18 108/72 98 11/25/22 00:43 104 H 11/25/22 00:42 91 L 11/24/22 22:41 109 H 18 97/74 98 11/24/22 21:18 97.1 F L 116 H 18 84/59 99 Intake and Output 11/24/22 11/25/22 11/25/22 22:59 06:59 14:59 Intake Total 1080 780 Output Total 100 Balance 980 780 Intake: Oral 1080 780 Output: Urine 100 Other: Voiding Method Indwelling Catheter Indwelling Catheter Weight 54.431 kg 54.431 kg GENERAL DESCRIPTION: Elderly male lying in bed, no distress. No tachypnea or accessory muscle of respiration use. HEENT: Shows Pallor , no scleral icterus. Oral mucous membrane is dry. No pharyngeal erythema or thrush NECK: Trachea central, no thyromegaly. LUNGS: Unlabored breathing. Decreased breath sound the base HEART: S1, S2, regular rate and rhythm. No loud murmur ABDOMEN: Soft, no tenderness , guarding or rigidity, no organomegaly EXTREMITIES: left foot wound on the dorsum aspect with some necrotic changes especially involving the big toe. SKIN: No rash, no masses palpable. NEUROLOGICAL: The patient is awake, alert, oriented x3, mood and affect normal. Results CBC & Chem 7: 11/29/22 07:40 11/30/22 07:50 Labs: Abnormal Lab Results - Last 24 Hours (Table) 11/24/22 11/24/22 11/24/22 Range/Units 23:20 23:20 23:20 WBC 16.6 H (3.8-10.6) k/uL RBC 4.17 L (4.30-5.90) m/uL Hgb 11.8 L (13.0-17.5) gm/dL Hct 38.6 L (39.0-53.0) % MCHC 30.7 L (31.0-37.0) g/dL RDW 17.1 H (11.5-15.5) % Neutrophils # 15.2 H (1.3-7.7) k/uL Lymphocytes # 0.6 L (1.0-4.8) k/uL PT 12.7 H (9.0-12.0) sec INR 1.2 H (<1.2) APTT 35.4 H (22.0-30.0) sec Sodium 134 L (137-145) mmol/L Chloride 97 L (98-107) mmol/L Carbon Dioxide (22-30) mmol/L BUN 115 H* (9-20) mg/dL Creatinine 2.26 H (0.66-1.25) mg/dL Glucose 116 H (74-99) mg/dL POC Glucose (mg/dL) (70-110) mg/dL Calcium (8.4-10.2) mg/dL Magnesium 2.4 H (1.6-2.3) mg/dL AST 191 H (17-59) U/L ALT 162 H (4-49) U/L Alkaline Phosphatase 300 H (38-126) U/L Troponin I (0.000-0.034) ng/mL Total Protein (6.3-8.2) g/dL Albumin 3.2 L (3.5-5.0) g/dL Urine Protein (Negative) Urine Blood (Negative) Ur Leukocyte Esterase (Negative) Urine RBC (0-5) /hpf Urine WBC (0-5) /hpf Urine WBC Clumps (None) /hpf Calcium Oxalate Crystal (None) /hpf Hyaline Casts (0-2) /lpf Urine Mucus (None) /hpf Urine Yeast (Budding) (None) /hpf 11/24/22 11/25/22 11/25/22 Range/Units 23:20 03:12 07:10 WBC 13.0 H (3.8-10.6) k/uL RBC 3.66 L (4.30-5.90) m/uL Hgb 10.7 L (13.0-17.5) gm/dL Hct 35.7 L (39.0-53.0) % MCHC 30.0 L (31.0-37.0) g/dL RDW 16.6 H (11.5-15.5) % Neutrophils # 11.8 H (1.3-7.7) k/uL Lymphocytes # 0.5 L (1.0-4.8) k/uL PT (9.0-12.0) sec INR (<1.2) APTT (22.0-30.0) sec Sodium (137-145) mmol/L Chloride (98-107) mmol/L Carbon Dioxide (22-30) mmol/L BUN (9-20) mg/dL Creatinine (0.66-1.25) mg/dL Glucose (74-99) mg/dL POC Glucose (mg/dL) (70-110) mg/dL Calcium (8.4-10.2) mg/dL Magnesium (1.6-2.3) mg/dL AST (17-59) U/L ALT (4-49) U/L Alkaline Phosphatase (38-126) U/L Troponin I 0.052 H* (0.000-0.034) ng/mL Total Protein (6.3-8.2) g/dL Albumin (3.5-5.0) g/dL Urine Protein Trace H (Negative) Urine Blood Large H (Negative) Ur Leukocyte Esterase Large H (Negative) Urine RBC 56 H (0-5) /hpf Urine WBC 180 H (0-5) /hpf Urine WBC Clumps Many H (None) /hpf Calcium Oxalate Crystal Occasional H (None) /hpf Hyaline Casts 3 H (0-2) /lpf Urine Mucus Rare H (None) /hpf Urine Yeast (Budding) Many H (None) /hpf 11/25/22 11/25/22 11/25/22 Range/Units 07:10 07:10 11:29 WBC (3.8-10.6) k/uL RBC (4.30-5.90) m/uL Hgb (13.0-17.5) gm/dL Hct (39.0-53.0) % MCHC (31.0-37.0) g/dL RDW (11.5-15.5) % Neutrophils # (1.3-7.7) k/uL Lymphocytes # (1.0-4.8) k/uL PT (9.0-12.0) sec INR (<1.2) APTT (22.0-30.0) sec Sodium 136 L (137-145) mmol/L Chloride (98-107) mmol/L Carbon Dioxide 19 L (22-30) mmol/L BUN 113 H* (9-20) mg/dL Creatinine 2.06 H (0.66-1.25) mg/dL Glucose (74-99) mg/dL POC Glucose (mg/dL) 154 H (70-110) mg/dL Calcium 8.1 L (8.4-10.2) mg/dL Magnesium 2.4 H (1.6-2.3) mg/dL AST 113 H (17-59) U/L ALT 125 H (4-49) U/L Alkaline Phosphatase 231 H (38-126) U/L Troponin I 0.048 H* (0.000-0.034) ng/mL Total Protein 6.1 L (6.3-8.2) g/dL Albumin 2.9 L (3.5-5.0) g/dL Urine Protein (Negative) Urine Blood (Negative) Ur Leukocyte Esterase (Negative) Urine RBC (0-5) /hpf Urine WBC (0-5) /hpf Urine WBC Clumps (None) /hpf Calcium Oxalate Crystal (None) /hpf Hyaline Casts (0-2) /lpf Urine Mucus (None) /hpf Urine Yeast (Budding) (None) /hpf Assessment and Plan (1) Cellulitis of left foot Status: Acute Code(s): L03.116 - CELLULITIS OF LEFT LOWER LIMB SNOMED Code(s): 738125259 (2) Type 2 diabetes mellitus with foot ulcer Status: Acute Code(s): E11.621 - TYPE 2 DIABETES MELLITUS WITH FOOT ULCER; L97.509 - NON-PRESSURE CHRONIC ULCER OTH PRT UNSP FOOT W UNSP SEVERITY SNOMED Code(s): 672118572 Plan: 1patient presented to hospital with left foot ulceration and discoloration in this patient with a left big toe did have a discoloration and tenderness exposed concerning likely from ischemic etiology underlying cellulitis less likely but not really excluded as we did have elevated white count likely from the gram- positive skin ruthann 2vancomycin pharmacy to dose with a target trough of 15 while watching kidney function and Vanco trough closely. 3-await vascular surgery evaluation and possible amputation We will follow on clinical condition and cultures to further adjust medication if needed Thank you for this consultation we will follow the patient along with you Time with Patient: Greater than 30
--- NOTE | 2022-11-26 11:09 | P.PN ---
Subjective 72-year-old male with severe non- ischemic cardiomyopathy with the EF of around 20-25% came in with the complaints of cyanosis of the left toe and patient has multiple ulcerations in the left foot. Patient follows up with wound care as an outpatient patient was given a dose of Vanco and cefepime was subsequently admitted. Patient denied any dizziness lightheadedness denied any chest pain patient is a thin built, E masticated, denied any chest pain, denied any cough fever chills. 11/26/2022 Heart rate is better controlled patient is being resumed on anticoagulation as there is no more scalp bleeding. The patient is presently not on any Lasix creatinine continued to improve patient is failing euvolemic at this time patient will be closely monitored does have EF of around 20-25%. Patient was evaluated by vascular surgery patient may need amputation patient remains on vancomycin infectious disease evaluated the patient. Serum sodium improved. Constitutional: Denied any fatigue denied any fever. Cardio vascular: denied any chest pain, palpitations Gastrointestinal denied any nausea vomiting Pulmonary: Denied any shortness of breath cough Neurologic denied any new focal deficits All inpatient medications were reviewed and appropriate changes in these medications as dictated in the interval history and assessment and plan. PHYSICAL EXAMINATION: GENERAL: The patient is alert and oriented x3, not in any acute distress. Thin built male HEENT: Pupils are round and equally reacting to light. EOMI. No scleral icterus. No conjunctival pallor. Normocephalic, atraumatic. No pharyngeal erythema. No thyromegaly. CARDIOVASCULAR: S1 and S2 present. No murmurs, rubs, or gallops. PULMONARY: Chest is clear to auscultation, no wheezing or crackles. ABDOMEN: Soft, nontender, nondistended, normoactive bowel sounds. No palpable organomegaly. MUSCULOSKELETAL: No joint swelling or deformity. EXTREMITIES: No cyanosis, clubbing, or pedal edema. NEUROLOGICAL: Gross neurological examination did not reveal any focal deficits. SKIN: Patient left foot is wrapped with gauze Assessment and plan -Peripheral vascular disease with the possibility of ischemia, unfortunately ultrasound of the left lower extremity is not informative. Vascular surgery evaluated the patient patient may need amputation but cannot tolerated the pro cedure because of his nutritional status and heart failure -Possible infected left lower extremity arterial ulcers: Infectious disease evaluated the patient patient remains on vancomycin -Moderate protein calorie malnutrition -Persistent atrial fibrillation presently rate controlled on anticoagulation is being resumed -Congestive heart failure chronic systolic dysfunction you of around 20-25% pat ient is probably mild will continue will hold off on Lasix medications are not verified yet, BNP although is highly elevated if patient has continued improvement in renal function -Hypotension secondary to congestive heart failure and possible hypovolemia -Acute renal failure: Secondary to hypovolemia and hypotension, diuretics are being held and patient will function improved not in much of heart failure at this time but need to closely monitor for heart failure the to be started back on Lasix if needed -Chronic kidney disease stage IV probably secondary to cardiorenal syndrome -Hyperlipidemia DVT prophylaxis: Anticoagulation is being temporally held because of uncontrolled bleeding from the scalp Objective - Vital Signs Vital signs: Vital Signs Temp 97.9 F 11/25/22 20:00 Pulse 117 H 11/26/22 04:00 Resp 16 11/26/22 04:00 BP 100/61 11/26/22 04:00 Pulse Ox 98 11/26/22 09:10 FiO2 Intake & Output 11/25/22 11/26/22 11/26/22 18:59 06:59 18:59 Intake Total 1135 540 237 Output Total 700 800 150 Balance 435 -260 87 Weight 54.431 kg Intake: Oral 1135 540 237 Output: Urine 700 800 150 Other: Voiding Method Indwelling Catheter Indwelling Catheter - Labs CBC & Chem 7: 11/26/22 06:48 11/26/22 06:48 Labs: Abnormal Lab Results - Last 24 Hours (Table) 11/25/22 11/25/22 11/25/22 Range/Units 11:29 16:22 20:12 WBC (3.8-10.6) k/uL RBC (4.30-5.90) m/uL Hgb (13.0-17.5) gm/dL Hct (39.0-53.0) % MCHC (31.0-37.0) g/dL RDW (11.5-15.5) % Sodium (137-145) mmol/L BUN (9-20) mg/dL Creatinine (0.66-1.25) mg/dL POC Glucose (mg/dL) 154 H 168 H 128 H (70-110) mg/dL Calcium (8.4-10.2) mg/dL 11/26/22 11/26/22 Range/Units 06:48 06:48 WBC 14.3 H (3.8-10.6) k/uL RBC 3.60 L (4.30-5.90) m/uL Hgb 10.6 L (13.0-17.5) gm/dL Hct 34.4 L (39.0-53.0) % MCHC 30.8 L (31.0-37.0) g/dL RDW 16.9 H (11.5-15.5) % Sodium 136 L (137-145) mmol/L BUN 87 H (9-20) mg/dL Creatinine 1.63 H (0.66-1.25) mg/dL POC Glucose (mg/dL) (70-110) mg/dL Calcium 8.3 L (8.4-10.2) mg/dL
[2022-11-26 11:36] LABS: Glucose,Whole Blood 127 mg/dL (70-110)
--- NOTE | 2022-11-26 12:16 | P.NPCON ---
History of Present Illness - Reason for Consult acute renal failure - History of Present Illness Patient is a 72-year-old male with history of nonischemic cardiomyopathy with EF of 20-25% who was admitted to the hospital with discoloration of the left toe. Patient has multiple ulcers on his left foot. He has has been in the foot as well. No history of fever chills nausea vomiting or abdominal pain. Serum creatinine was 2.2 on initial admission and is down to 1.6. Patient is maintained on vancomycin. Random level was 18.3 today. Blood pressure has been low with systolic in the 90s and occasionally 80s as well. Patient has an indwelling Galeana catheter with 24-hour urine output at 1500 mL. Currently not on any IV fluids or diuretics. Patient received IV fluids initially. He was also on Toradol. Patient has underlying CK D with previous creatinine in August 2022 at 1.4-1.5 mg/dL Vascular surgery considering CT angiogram versus CO2 angiogram Review of Systems As per HPI Past Medical History Past Medical History: Atrial Fibrillation, COPD, Diabetes Mellitus, Deep Vein Thrombosis (DVT), Pulmonary Embolus (PE) Additional Past Medical History / Comment(s): osteolmyelitis, SKIN CA; urinary retention History of Any Multi-Drug Resistant Organisms: None Reported Past Surgical History: Cholecystectomy Additional Past Surgical History / Comment(s): Lumbar back surgery Past Anesthesia/Blood Transfusion Reactions: Previous Problems w/ Anesthesia Additional Past Anesthesia/Blood Transfusion Reaction / Comment(s): "Hard to wake up" Past Psychological History: No Psychological Hx Reported Smoking Status: Former smoker Past Alcohol Use History: None Reported Past Drug Use History: None Reported - Past Family History Father Family Medical History: Diabetes Mellitus Medications and Allergies Home Medications Medication Instructions Recorded Confirmed Type Atorvastatin [Lipitor] 40 mg PO DAILY 08/19/22 11/25/22 History Cetirizine HCl 10 mg PO DAILY 08/19/22 11/25/22 History Cyanocobalamin [Vitamin B-12] 500 mcg PO DAILY 08/19/22 11/25/22 History Furosemide [Lasix] 80 mg PO BID 08/19/22 11/25/22 History Montelukast [Singulair] 10 mg PO DAILY 08/19/22 11/25/22 History Apixaban [Eliquis] 5 mg PO BID #60 tab 08/23/22 11/25/22 Rx Dapagliflozin Propanediol [Farxiga] 10 mg PO DAILY #30 tab 08/23/22 11/25/22 Rx Midodrine [ProAmatine] 5 mg PO AC-TID #90 tab 08/23/22 11/25/22 Rx Spironolactone [Aldactone] 12.5 mg PO DAILY #15 tab 08/23/22 11/25/22 Rx Folic Acid 1 mg PO DAILY 11/25/22 11/25/22 History Metoprolol Tartrate [Lopressor] 25 mg PO BID 11/25/22 11/25/22 History cefUROXime axetiL [Ceftin] 500 mg PO BID 11/25/22 11/25/22 History Allergies Allergy/AdvReac Type Severity Reaction Status Date / Time morphine Allergy Unknown Verified 11/25/22 14:37 Physical Exam Vitals: Vital Signs Temp Pulse Resp BP Pulse Ox 11/26/22 09:10 98 11/26/22 08:00 97.5 F L 98 18 98/53 100 11/26/22 04:00 117 H 16 100/61 100 11/26/22 00:00 107 H 16 89/59 100 11/25/22 20:00 97.9 F 79 16 95/63 98 11/25/22 15:33 97.5 F L 73 18 95/60 99 11/25/22 13:24 106 H 17 Intake and Output 11/25/22 11/26/22 11/26/22 22:59 06:59 14:59 Intake Total 0 540 237 Output Total 400 600 150 Balance -400 -60 87 Intake: Oral 0 540 237 Output: Urine 400 600 150 Other: Voiding Method Indwelling Catheter Indwelling Catheter Indwelling Catheter Patient is awake, comfortable, in no acute distress Patient appears cachectic Examination of the heart S1 and S2 Examination of the lungs bilateral breath sounds are heard Abdomen is soft nontender Examination of lower extremities shows left foot is wrapped. No edema noted Results - Lab Results Most recent lab results Calcium 8.3 mg/dL (8.4-10.2) L 11/26/22 06:48 Phosphorus 4.0 mg/dL (2.5-4.5) 11/25/22 07:10 Magnesium 2.1 mg/dL (1.6-2.3) 11/26/22 06:48 11/26/22 06:48 11/26/22 06:48 Assessment and Plan Assessment: 1. Acute kidney injury secondary to hypotension and hypovolemia, status post IV fluids with improvement in renal function. Serum creatinine appears to be close to baseline. Patient has an indwelling Galeana catheter. UA shows trace protein large WBCs and blood. 2. Chronic kidney disease NKF stage IIIa likely secondary to nephrosclerosis/cardiorenal syndrome. Check ultrasound of the kidneys. UA shows trace protein however there is significant WBCs and blood noted. 3. Left foot ulcers with underlying peripheral vascular disease and plans for possible CT angiogram versus CO2 angiogram for further evaluation of vascular status. 4. Chronic persistent A. fib 5. Cardiomyopathy with ejection fraction 20-25%, clinically does not appear to be in failure. 6. Hypotension most likely associated with poor cardiac output 7. Left foot wound/cellulitis maintained on vancomycin Plan: Continue off of IV fluids and diuretics Continue with midodrine Check ultrasound of the kidneys Recommend to switch antibiotics. Will discuss with ID Patient is at high risk for contrast-induced nephropathy given the significantly low flow state and hypotension. Renal function has improved with creatinine down to 1.6 and patient's baseline creatinine is about 1.4. A CO2 angiogram is preferable however if a CT angiogram is absolutely needed we could wait another 1-2 days as renal function continues to improve. Overall prognosis is guarded given the severe protein calorie malnutrition. Thank you for the consultation. We will continue to follow the patient with you during his hospitalization.
--- NOTE | 2022-11-26 13:13 | US ---
EXAMINATION TYPE: US kidneys/renal and bladder DATE OF EXAM: 11/26/2022 COMPARISON: NONE CLINICAL INDICATION: Male, 72 years old with history of lauren; LAUREN EXAM MEASUREMENTS: Right Kidney: 9.0 x 4.8 x 5.7 cm Left Kidney: 8.9 x 4.6 x 4.7 cm Exam is very limited due to rib shadow and thin patient body habitus. Right Kidney: Hyperechoic area seen at mid: 1.1 x 0.6 x 0.8 cm. Cortical medullary differentiation m aintained no hydronephrosis. Left Kidney: Measures slightly small. No hydronephrosis or masses seen ,Cortical medullary different iation maintained Bladder: Wall appears thickened measuring 4.3 mm. Echogenic material is seen within the bladder: 3. 2 x 4.4 x 1.1 cm. Catheter is seen within the distended bladder. Bilateral Jets seen: No IMPRESSION: 1. Galeana catheter in place. 2. No evidence of hydronephrosis. 3. Right renal calculi. 4. Floating debris in the urinary bladder suggested.
[2022-11-26 16:26] LABS: Glucose,Whole Blood 132 mg/dL (70-110)
[2022-11-26] MEDS: APIXABAN 2.5 MG TABLET PO SCH (19:51)
[2022-11-26 20:45] LABS: Glucose,Whole Blood 168 mg/dL (70-110)
--- NOTE | 2022-11-26 22:10 | P.PN ---
Subjective Progress Note Date: 11/26/22 Principal diagnosis: Left diabetic foot wound gangrene Patient is a 72-year-old male with multiple comorbidities include diabetes COPD defibrillation presented to hospital with discoloration of the left foot toes and concern for ischemia and possible cellulitis On today's evaluation that is 11/26/2022, patient denies having any fever or chills, the patient denies any worsening pain to the left foot area no chest pain shortness of cough no problem with diarrhea patient did have an open wound to the forehead after treatment for cancer and denies any symptoms of pain or drainage the scalp wound Objective - Vital Signs Vital signs: Vital Signs Temp 97.8 F 11/26/22 12:00 Pulse 114 H 11/26/22 12:00 Resp 18 11/26/22 12:00 BP 88/59 11/26/22 12:00 Pulse Ox 98 11/26/22 12:00 FiO2 Intake & Output 11/25/22 11/26/22 11/26/22 18:59 06:59 18:59 Intake Total 1135 540 777 Output Total 700 800 150 Balance 435 -260 627 Weight 54.431 kg Intake: Oral 1135 540 777 Output: Urine 700 800 150 Other: Voiding Method Indwelling Catheter Indwelling Catheter Indwelling Catheter - Exam GENERAL DESCRIPTION: An elderly male lying in bed in no distress RESPIRATORY SYSTEM: Unlabored breathing , decreased breath sounds at bases HEART: S1 S2 regular rate and rhythm , ABDOMEN: Soft , no tenderness EXTREMITIES: Left foot is currently dressed no drainage on the dressing - Labs CBC & Chem 7: 11/26/22 06:48 11/26/22 06:48 Labs: Abnormal Lab Results - Last 24 Hours (Table) 11/25/22 11/25/22 11/26/22 Range/Units 16:22 20:12 06:48 WBC 14.3 H (3.8-10.6) k/uL RBC 3.60 L (4.30-5.90) m/uL Hgb 10.6 L (13.0-17.5) gm/dL Hct 34.4 L (39.0-53.0) % MCHC 30.8 L (31.0-37.0) g/dL RDW 16.9 H (11.5-15.5) % Sodium (137-145) mmol/L BUN (9-20) mg/dL Creatinine (0.66-1.25) mg/dL POC Glucose (mg/dL) 168 H 128 H (70-110) mg/dL Calcium (8.4-10.2) mg/dL 11/26/22 11/26/22 Range/Units 06:48 11:35 WBC (3.8-10.6) k/uL RBC (4.30-5.90) m/uL Hgb (13.0-17.5) gm/dL Hct (39.0-53.0) % MCHC (31.0-37.0) g/dL RDW (11.5-15.5) % Sodium 136 L (137-145) mmol/L BUN 87 H (9-20) mg/dL Creatinine 1.63 H (0.66-1.25) mg/dL POC Glucose (mg/dL) 127 H (70-110) mg/dL Calcium 8.3 L (8.4-10.2) mg/dL Microbiology - Last 24 Hours (Table) 11/24/22 23:35 Blood Culture - Preliminary Blood 11/24/22 23:20 Blood Culture - Preliminary Blood Assessment and Plan (1) Cellulitis of left foot Current Visit: Yes Status: Acute Code(s): L03.116 - CELLULITIS OF LEFT LOWER LIMB SNOMED Code(s): 316549550 (2) Gangrene of toe of left foot Current Visit: Yes Status: Acute Code(s): I96 - GANGRENE, NOT ELSEWHERE CLASSIFIED SNOMED Code(s): 02179014462394108 (3) Ulcer of left foot Current Visit: Yes Status: Acute Code(s): L97.529 - NON-PRESSURE CHRONIC ULCER OTH PRT LEFT FOOT W UNSP SEVERITY SNOMED Code(s): 564112343 Plan: 1patient presented to hospital with left foot ulceration and discoloration in this patient with a left big toe did have a discoloration and tenderness exposed concerning likely from ischemic etiology underlying cellulitis less likely but not really excluded as we did have elevated white count likely from the gram- positive skin ruthann 2 with less risk of MRSA infection and borderline kidney function, we will discontinue vancomycin and start the patient on Unasyn and monitor clinical course closely 3-local wound care to the scalp wound with Aquacel silver dressing change daily
[2022-11-27] MEDS: AMPICILLIN-SULBACTAM 3 GM in SODIUM CHLORIDE 0.9% 100 ML IVPB SCH ×3 (00:21→15:49)
[2022-11-27 05:59] LABS: Glucose,Whole Blood 107 mg/dL (70-110)
[2022-11-27] MEDS: INSULIN ASPART (NovoLOG) 100 UNIT/ML VIAL SQ SCH ×4 (06:05→20:48)
[2022-11-27] MEDS: MIDODRINE 5 MG TAB PO SCH ×3 (06:05→17:30)
[2022-11-27 08:21] LABS: Anisocytosis Slight; HCT 39.3 % (39.0-53.0); HGB 11.6 gm/dL (13.0-17.5); Hypochromasia Marked; MCH 28.5 pg (25.0-35.0); MCHC 29.6 g/dL (31.0-37.0); MCV 96.3 fL (80.0-100.0); Mean Platelet Volume 8.2; Platelet Count 263 k/uL (150-450); RBC 4.08 m/uL (4.30-5.90); RDW 16.8 % (11.5-15.5); WBC 16.7 k/uL (3.8-10.6)
[2022-11-27] MEDS: METOPROLOL SUCCINATE (ER) 25 MG TAB.ER.24H PO SCH (08:45)
[2022-11-27] MEDS: PANTOPRAZOLE 40 MG/10 ML VIAL IV SCH (08:45)
[2022-11-27] MEDS: APIXABAN 2.5 MG TABLET PO SCH ×2 (08:45→20:47)
[2022-11-27 08:57] LABS: African American GFR (CKD) 62 (>60 ml/min/1.73 sqM); Anion Gap 12 mmol/L; Blood Urea Nitrogen 74 mg/dL (9-20); Calcium 8.4 mg/dL (8.4-10.2); Carbon Dioxide 20 mmol/L (22-30); Chloride 103 mmol/L (98-107); Glucose 97 mg/dL (74-99); Non-African American GFR(CKD) 54 (>60 ml/min/1.73 sqM); Potassium 4.1 mmol/L (3.5-5.1); Sodium 135 mmol/L (137-145)
--- NOTE | 2022-11-27 11:43 | P.PN ---
Subjective Progress Note Date: 11/27/22 Principal diagnosis: Left lower extremity wounds, peripheral vascular disease Patient is seen and examined today as a follow-up. No acute changes through the night. Nephrology is following patient closely for acute on chronic kidney disease. They prefer CO2 angiogram however state that if the CT angiogram is absolutely needed to wait 1-2 more days for renal function to improve. Patient denies any significant pain in his lower extremities. Objective - Vital Signs Vital signs: Vital Signs Temp 97.5 F L 11/27/22 08:31 Pulse 106 H 11/27/22 08:31 Resp 20 11/27/22 08:31 BP 104/57 11/27/22 08:31 Pulse Ox 98 11/27/22 08:31 FiO2 Intake & Output 11/26/22 11/27/22 11/27/22 18:59 06:59 18:59 Intake Total 1251 180 Output Total 350 600 500 Balance 901 -600 -320 Intake: Oral 1251 180 Output: Urine 350 600 500 2-way Urethral 600 500 Other: Voiding Method Indwelling Catheter Indwelling Catheter # Bowel Movements 1 - Exam General appearance: The patient is alert, oriented, appears in no acute distress. He is frail and thin, chronically ill-appearing HET: Scalp with large defect/wound with oozing. Neck: Supple. Heart: Regular. Lungs: Equal expansion, normal respiratory effort. Abdomen: Soft, thin, nontender, nondistended. Extremities: Warm, no clubbing or edema. Weak femoral pulses bilaterally. No palpable pedal pulses. Significant muscular wasting throughout bilateral lower extremities. Left foot with multiple areas of eschar, tendon exposed at the great toe. No obvious areas of purulent drainage or fluctuance. Neurological: No focal deficits. - Labs CBC & Chem 7: 11/27/22 08:01 11/27/22 08:01 Labs: Abnormal Lab Results - Last 24 Hours (Table) 11/26/22 11/26/22 11/26/22 Range/Units 11:35 16:24 20:43 WBC (3.8-10.6) k/uL RBC (4.30-5.90) m/uL Hgb (13.0-17.5) gm/dL MCHC (31.0-37.0) g/dL RDW (11.5-15.5) % POC Glucose (mg/dL) 127 H 132 H 168 H (70-110) mg/dL 11/27/22 Range/Units 08:01 WBC 16.7 H (3.8-10.6) k/uL RBC 4.08 L (4.30-5.90) m/uL Hgb 11.6 L (13.0-17.5) gm/dL MCHC 29.6 L (31.0-37.0) g/dL RDW 16.8 H (11.5-15.5) % POC Glucose (mg/dL) (70-110) mg/dL Microbiology - Last 24 Hours (Table) 11/24/22 23:35 Blood Culture - Preliminary Blood 11/24/22 23:20 Blood Culture - Preliminary Blood Assessment and Plan Assessment: 1. [place] 5 peripheral vascular disease 2. Left lower extremity wounds likely due to arterial insufficiency. No obvious areas of infection. 3. Severe significant medical comorbidities including congestive heart failure, nonischemic cardiomyopathy with EF 20-25%, chronic kidney disease 4. Protein calorie malnutrition Plan: 1. Recommend CT angiogram with runoff, patient was cleared by nephrology to undergo CT angiogram. Study ordered. 2. Due to significant medical comorbidities he is not a good candidate for aggressive intervention. Was discussed with patient possibility of amputation however, patient has a severely poor prognosis related to multisystem involvement/organ failure 3. Consider discussion of goals of care with patient, consider possible palliative care consultation 4. Further recommendations forthcoming based on patient's clinical course Thank you for this consultation, we will continue to follow along The impression and plan of care has been dictated as directed. I performed a history and examination of this patient, discussed the same with the dictator. I agree with the dictator's note ,documented as a scribe. Any additional findings or plans will be noted.
[2022-11-27 11:53] LABS: Glucose,Whole Blood 136 mg/dL (70-110)
--- NOTE | 2022-11-27 11:57 | P.PN ---
Subjective Patient is seen for follow-up for acute kidney injury on top of chronic kidney disease with baseline creatinine around 1.5-1.4 mg/dL as of August 2022 Renal function has been improving. Serum creatinine improved to 1.3 from 2.2 on initial admission. Blood pressure was low on initial admission. Vancomycin has been discontinued. Random level was 18.3 Objective - Vital Signs Vital signs: Vital Signs Temp 97.5 F L 11/27/22 08:31 Pulse 106 H 11/27/22 08:31 Resp 20 11/27/22 08:31 BP 104/57 11/27/22 08:31 Pulse Ox 98 11/27/22 08:31 FiO2 Intake & Output 11/26/22 11/27/22 11/27/22 18:59 06:59 18:59 Intake Total 1251 180 Output Total 350 600 500 Balance 901 -600 -320 Intake: Oral 1251 180 Output: Urine 350 600 500 2-way Urethral 600 500 Other: Voiding Method Indwelling Catheter Indwelling Catheter Indwelling Catheter # Bowel Movements 1 - Exam Patient is awake, comfortable, in no acute distress Patient appears cachectic Examination of the heart S1 and S2 Examination of the lungs bilateral breath sounds are heard Abdomen is soft nontender Examination of lower extremities shows left foot is wrapped. No edema noted - Labs CBC & Chem 7: 11/27/22 08:01 11/27/22 08:01 Labs: Abnormal Lab Results - Last 24 Hours (Table) 11/26/22 11/26/22 11/27/22 Range/Units 16:24 20:43 08:01 WBC (3.8-10.6) k/uL RBC (4.30-5.90) m/uL Hgb (13.0-17.5) gm/dL MCHC (31.0-37.0) g/dL RDW (11.5-15.5) % Sodium 135 L (137-145) mmol/L Carbon Dioxide 20 L (22-30) mmol/L BUN 74 H (9-20) mg/dL Creatinine 1.34 H (0.66-1.25) mg/dL POC Glucose (mg/dL) 132 H 168 H (70-110) mg/dL 11/27/22 Range/Units 08:01 WBC 16.7 H (3.8-10.6) k/uL RBC 4.08 L (4.30-5.90) m/uL Hgb 11.6 L (13.0-17.5) gm/dL MCHC 29.6 L (31.0-37.0) g/dL RDW 16.8 H (11.5-15.5) % Sodium (137-145) mmol/L Carbon Dioxide (22-30) mmol/L BUN (9-20) mg/dL Creatinine (0.66-1.25) mg/dL POC Glucose (mg/dL) (70-110) mg/dL Microbiology - Last 24 Hours (Table) 11/24/22 23:35 Blood Culture - Preliminary Blood 11/24/22 23:20 Blood Culture - Preliminary Blood Assessment and Plan Assessment: 1. Acute kidney injury secondary to hypotension and hypovolemia, status post IV fluids with improvement in renal function. Serum creatinine has improved to baseline. Patient has an indwelling Galeana catheter. UA shows trace protein large WBCs and blood. 2. Chronic kidney disease NKF stage IIIa likely secondary to nephrosclerosis/cardiorenal syndrome. Ultrasound of the kidneys is unremarkable. UA shows trace protein however there is significant WBCs and blood noted. 3. Left foot ulcers with underlying peripheral vascular disease and plans for possible CT angiogram versus CO2 angiogram for further evaluation of vascular status. 4. Chronic persistent A. fib 5. Cardiomyopathy with ejection fraction 20-25%, clinically does not appear to be in failure. 6. Hypotension most likely associated with poor cardiac output 7. Left foot wound/cellulitis maintained on vancomycin, now discontinued and switched to daptomycin. Plan: Okay to proceed with CT angiogram as renal function has improved significantly.
--- NOTE | 2022-11-27 15:22 | CT ---
EXAMINATION TYPE: CT angio abd aorta w/Runoff DATE OF EXAM: 11/27/2022 COMPARISON: None HISTORY: Non-palpable pulses, LLE wounds. CT DLP: 1427.4 mGycm CONTRAST: CTA thoracic and abdominal aorta with 3-D reconstruction is performed and with IV Contrast, patient i njected with 100ml mL of Isovue 370. Contrast CTA of the abdominal aorta with runoff of the lower extremity arterial system was performed from the lung bases through the ankles and feet. 3-D reconstruction imaging obtained at a separate wo rkstation. ABDOMINAL AORTA: Diffuse atheromatous change without evidence for aneurysm or dissection. Dense calci fication at the origin of the SMA and celiac axis. Calcifications also present at the origins of the renal arteries bilaterally. Iliac vessels: There is occlusion of the left common iliac artery with reconstitution noted at the le ft external iliac artery. The right common iliac artery demonstrates moderate plaque disease with gre ater than 70% stenosis. There is occlusion of the right external iliac artery while the internal yuki c artery is patent. Recanalization at the right femoral artery via the epigastric artery. Femoral arteries: Severe calcific atheromatous disease left femoral artery with 70% stenosis. Multif ocal calcific atheromatous disease throughout the course of the left superficial femoral artery with multifocal stenosis greater than 70% and occlusion at its midportion. Reconstitution distally. Again multifocal disease distal left SFA ranging from 50-70%. Moderate calcific plaque seen throughout the course of the superficial femoral artery on the right. Multifocal stenosis greater than 50%. No defin ite occlusion at this time. Popliteal arteries: Popliteal arteries are patent bilaterally with only mild plaque formation noted. Below the knee arteries: Trifurcation is patent bilaterally. Peroneal, anterior and posterior tibial arteries demonstrate mild calcific disease without evidence for hemodynamically significant stenosis. Limited runoff of the ankles and feet given timing of the contrast bolus. Small right-sided pleural effusion with compressive atelectasis. LIVER/GB-there is evidence of pneumobilia. Calcific density in the region of the gallbladder fossa. PANCREAS- No significant abnormality is seen. SPLEEN- No significant abnormality is seen. ADRENALS- No significant abnormality is seen. KIDNEYS/BLADDER- No significant abnormality is seen. BOWEL- No Significant abnormality GENITAL ORGANS: No gross abnormality seen. LYMPH NODES- No greater than 1cm abdominal or pelvic lymph nodes are appreciated. OSSEOUS STRUCTURES- No significant abnormality is seen. OTHER- No significant abnormality is seen. IMPRESSION- 1. Aortoiliac stent graft without evidence for endoleak. [place] infrarenal abdominal a focal plaque d isease with occlusion of the left common iliac artery shows occlusion of the right external iliac art leanna. Multifocal disease bilateral superficial femoral arteries left greater than right. On the left m ultifocal stenosis greater than 70% with occlusion at the midportion. On the right multifocal disease ranging from 50-70% stenosis.
[2022-11-27 16:57] LABS: Glucose,Whole Blood 155 mg/dL (70-110)
[2022-11-27 20:13] LABS: Glucose,Whole Blood 137 mg/dL (70-110)
[2022-11-28] MEDS: AMPICILLIN-SULBACTAM 3 GM in SODIUM CHLORIDE 0.9% 100 ML IVPB SCH ×4 (00:06→19:27)
--- NOTE | 2022-11-28 03:28 | PN ---
PROGRESS NOTE DATE OF SERVICE: 11/27/2022 SUBJECTIVE: This is a 72-year-old gentleman, who was admitted with multiple medical problems including severe peripheral vascular disease and possible left osteomyelitis, is being closely monitored. The patient is not a candidate for any vascular procedure according to [facility]. The patient is severely macerated and the patient's BMI is 17.2. OBJECTIVE: VITAL SIGNS: Pulse is 113, blood pressure 90/56, respirations 20. HEENT: Conjunctivae normal. CARDIOVASCULAR: S1, S2. RESPIRATIONS: A few scattered rhonchi. ABDOMEN: Soft. LEGS: Severely macerated. Pulses diminished. LABORATORY DATA: Reviewed. ASSESSMENT: 1. 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 2. Severe peripheral vascular disease. 3. Moderate protein-calorie malnutrition. 4. Persistent atrial fibrillation. 5. History of congestive heart failure. 6. Multiple medical issues. 7. Full code. RECOMMENDATIONS: Recommend to continue current management and continue symptomatic treatment. We will discuss the code status with the family. Otherwise, continue the current medications. Empiric antibiotics. Cultures are negative so far. Closely follow with multiple consultants. Prognosis is extremely guarded. Further recommendations to follow. MMODL / IJN: [id number] /
[2022-11-28 06:02] LABS: Glucose,Whole Blood 90 mg/dL (70-110)
[2022-11-28] MEDS: INSULIN ASPART (NovoLOG) 100 UNIT/ML VIAL SQ SCH ×4 (06:36→20:42)
[2022-11-28] MEDS: MIDODRINE 5 MG TAB PO SCH ×3 (06:36→17:05)
[2022-11-28] MEDS: METOPROLOL SUCCINATE (ER) 25 MG TAB.ER.24H PO SCH (08:04)
[2022-11-28] MEDS: PANTOPRAZOLE 40 MG/10 ML VIAL IV SCH (08:04)
[2022-11-28] MEDS: APIXABAN 2.5 MG TABLET PO SCH ×2 (08:04→19:27)
[2022-11-28 09:29] LABS: African American GFR (CKD) 64 (>60 ml/min/1.73 sqM); Non-African American GFR(CKD) 55 (>60 ml/min/1.73 sqM)
[2022-11-28 11:51] LABS: Glucose,Whole Blood 127 mg/dL (70-110)
--- NOTE | 2022-11-28 12:34 | P.PN ---
Subjective Patient is seen for follow-up for acute kidney injury on top of chronic kidney disease with baseline creatinine around 1.5-1.4 mg/dL as of August 2022 Renal function has been improving. Serum creatinine improved to 1.3 from 2.2 on initial admission. Blood pressure was low on initial admission. Vancomycin has been discontinued. Random level was 18.3 CT angiogram was performed yesterday Objective - Vital Signs Vital signs: Vital Signs Temp 97.6 F 11/28/22 08:00 Pulse 109 H 11/28/22 11:27 Resp 17 11/28/22 11:27 BP 96/59 11/28/22 11:27 Pulse Ox 100 11/28/22 11:27 FiO2 Intake & Output 11/27/22 11/28/22 11/28/22 18:59 06:59 18:59 Intake Total 620 638 Output Total 1000 450 550 Balance -380 -450 88 Intake: Oral 620 638 Output: Urine 1000 450 550 2-way Urethral 500 Other: Voiding Method Indwelling Catheter Indwelling Catheter Indwelling Catheter - Exam Patient is awake, comfortable, in no acute distress Patient appears cachectic Examination of the heart S1 and S2 Examination of the lungs bilateral breath sounds are heard Abdomen is soft nontender Examination of lower extremities shows left foot is wrapped. No edema noted - Labs CBC & Chem 7: 11/27/22 08:01 11/28/22 08:33 Labs: Abnormal Lab Results - Last 24 Hours (Table) 11/27/22 11/27/22 11/28/22 Range/Units 16:55 20:09 08:33 Creatinine 1.30 H (0.66-1.25) mg/dL POC Glucose (mg/dL) 155 H 137 H (70-110) mg/dL 11/28/22 Range/Units 11:49 Creatinine (0.66-1.25) mg/dL POC Glucose (mg/dL) 127 H (70-110) mg/dL Microbiology - Last 24 Hours (Table) 11/24/22 23:35 Blood Culture - Preliminary Blood 11/24/22 23:20 Blood Culture - Preliminary Blood Assessment and Plan Assessment: 1. Acute kidney injury secondary to hypotension and hypovolemia, status post IV fluids with improvement in renal function. Serum creatinine has improved to baseline. Patient has an indwelling Galeana catheter. UA shows trace protein large WBCs and blood. 2. Chronic kidney disease NKF stage IIIa likely secondary to nephro sclerosis/cardiorenal syndrome. Ultrasound of the kidneys is unremarkable. UA shows trace protein however there is significant WBCs and blood noted. 3. Left foot ulcers with underlying peripheral vascular disease and status post CT angiogram yesterday 4. Chronic persistent A. fib 5. Cardiomyopathy with ejection fraction 20-25%, clinically does not appear to be in failure. 6. Hypotension most likely associated with poor cardiac output 7. Left foot wound/cellulitis maintained on vancomycin, now discontinued and switched to daptomycin. Plan: Continue with midodrine Repeat labs in a.m.
--- NOTE | 2022-11-28 14:36 | P.PN ---
Subjective Progress Note Date: 11/28/22 Principal diagnosis: Left lower extremity wounds, peripheral vascular disease Patient is seen and examined today as follow-up. Patient without any acute changes through the night. He remains afebrile. History kidney function improved and patient was able to undergo CT angiogram abdomen aorta with runoff which reported aortoiliac stent graft without evidence of endoleak. Infrarenal abdominal and focal plaque disease with occlusion of the left common iliac artery shows occlusion of the right external iliac artery. Multifocal disease bilateral SFA left greater than right. On the left multifocal stenosis greater than 70% with occlusion at the midportion. On the right multifocal disease ranging from 50-70% stenosis. Remains on Unasyn. On 3 L nasal cannula, saturation 100%. Objective - Vital Signs Vital signs: Vital Signs Temp 97.6 F 11/28/22 08:00 Pulse 109 H 11/28/22 11:27 Resp 17 11/28/22 11:27 BP 96/59 11/28/22 11:27 Pulse Ox 100 11/28/22 11:27 FiO2 Intake & Output 11/27/22 11/28/22 11/28/22 18:59 06:59 18:59 Intake Total 620 638 Output Total 1000 450 550 Balance -380 -450 88 Intake: Oral 620 638 Output: Urine 1000 450 550 2-way Urethral 500 Other: Voiding Method Indwelling Catheter Indwelling Catheter Indwelling Catheter - Exam General appearance: The patient is alert, oriented, appears in no acute distress. He is frail and thin, chronically ill-appearing HET: Scalp with large defect/wound with oozing. Neck: Supple. Heart: Regular. Lungs: Equal expansion, normal respiratory effort. Abdomen: Soft, thin, nontender, nondistended. Extremities: Warm, no clubbing or edema. Weak femoral pulses bilaterally. No palpable pedal pulses. Significant muscular wasting throughout bilateral lower extremities. Left foot with multiple areas of eschar, tendon exposed at the great toe. No obvious areas of purulent drainage or fluctuance. Neurological: No focal deficits. - Labs CBC & Chem 7: 11/27/22 08:01 11/28/22 08:33 Labs: Abnormal Lab Results - Last 24 Hours (Table) 11/27/22 11/27/22 11/27/22 Range/Units 11:50 16:55 20:09 Creatinine (0.66-1.25) mg/dL POC Glucose (mg/dL) 136 H 155 H 137 H (70-110) mg/dL 11/28/22 Range/Units 08:33 Creatinine 1.30 H (0.66-1.25) mg/dL POC Glucose (mg/dL) (70-110) mg/dL Microbiology - Last 24 Hours (Table) 11/24/22 23:35 Blood Culture - Preliminary Blood 11/24/22 23:20 Blood Culture - Preliminary Blood Assessment and Plan Assessment: 1. Occlusion left common iliac artery, occlusion right external iliac artery, bilateral superficial femoral artery occlusion 2. [place] 5 peripheral vascular disease 3. Left lower extremity wounds likely due to arterial insufficiency. No obvious areas of infection 4. Severe significant medical comorbidities including congestive heart failure, nonischemic cardiomyopathy with EF 20-25%, chronic persistent atrial fibrillation, chronic kidney disease 5. Protein calorie malnutrition 6. Skin cancer Plan: CT angiogram with runoff ordered and imaging reviewed by Dr. Kessler with occlusion of left common iliac artery and right external iliac artery as well as bilateral superficial femoral artery. Consider percutaneous iliac stents, this was discussed with the patient and he wants to try to proceed with stenting. It was discussed with patient that if stenting is unable to be performed recommendation would be for a left lower extremity amputation, however patient is a very poor candidate to proceed with surgery and will have a high morbidity and mortality rate due to multiple complex comorbidities. Patient verbalizes understanding. He is currently on Eliquis and will need cardiac clearance. The impression and plan of care has been dictated as directed. Dr. Kessler I performed a history and examination of this patient, discussed the same with the dictator. I agree with the dictator's note ,documented as a scribe. Any additional findings or plans will be noted.
[2022-11-28 16:34] LABS: Glucose,Whole Blood 206 mg/dL (70-110)
--- NOTE | 2022-11-28 18:54 | P.PN ---
Subjective Progress Note Date: 11/28/22 72-year-old male with severe non- ischemic cardiomyopathy with the EF of around 20-25% came in with the complaints of cyanosis of the left toe and patient has multiple ulcerations in the left foot. Patient follows up with wound care as an outpatient patient was given a dose of Vanco and cefepime was subsequently admitted. Patient denied any dizziness lightheadedness denied any chest pain patient is a thin built, patient is severely emaciated, denied any chest pain, denied any cough fever chills. 11/26/2022 Heart rate is better controlled patient is being resumed on anticoagulation as there is no more scalp bleeding. The patient is presently not on any Lasix creatinine continued to improve patient is failing euvolemic at this time patient will be closely monitored does have EF of around 20-25%. Patient was evaluated by vascular surgery patient may need amputation patient remains on vancomycin infectious disease evaluated the patient. Serum sodium improved. 11/28/2022 Patient is seen and evaluated in follow-up today with vascular surgery following along with infectious disease. Cardiology was following almost signed off. Patient had CT angiogram with runoff which showed aortoiliac stent graft without evidence of endoleak. Infrarenal abdominal and focal plaque disease with o cclusion of the left common iliac artery shows occlusion of the right external iliac artery. Multifocal disease bilateral SFA left greater than right. On the left multifocal stenosis greater than 70% with occlusion at the midportion. On the right multifocal disease ranging from 50-70% stenosis. Had a lengthy discussion with the patient along with daughter who is his caregiver and addressed CODE STATUS of which patient wishes to remain full code and would like surgical intervention. Daughter also mentioned she does not want her father to go to a rehab and would like him to come home after surgery to continue caring for him. Patient is maintained on IV antibiotics with infectious disease following as well. Kidney functions have improved. Overall patient's prognosis is poor with significant comorbidities making him extremely high risk for surgical intervention. Cardiology has been re-consulted for surgical clearance and will await. Patient is currently afebrile denies chest pain or worsening shortness of breath. No reported nausea or vomiting noted. Review of systems: Constitutional: Denied any fatigue denied any fever. Cardio vascular: denied any chest pain, palpitations Gastrointestinal denied any nausea vomiting Pulmonary: Denied any shortness of breath cough Neurologic reports generalized weakness All inpatient medications were reviewed and appropriate changes in these medications as dictated in the interval history and assessment and plan. Active Medications Albuterol/Ipratropium (Ipratropium-Albuterol 3 Ml Neb) 3 ml INHALATION RT-QID PRN PRN Reason: Shortness Of Breath Or Wheezing Apixaban (Apixaban 2.5 Mg Tablet) 2.5 mg PO BID [facility]; Protocol Last Admin: 11/28/22 08:04 Dose: 2.5 mg Hydromorphone HCl (Hydromorphone 1 Mg/Ml 1 Ml Syringe) 1 mg IVP Q4HR PRN PRN Reason: Pain Last Admin: 11/25/22 02:17 Dose: 1 mg Ampicillin Sodium/Sulbactam (Sodium 3 gm/ Sodium Chloride) 100 mls @ 200 mls/hr IVPB Q8H [facility]; Protocol Last Admin: 11/28/22 15:08 Dose: 200 mls/hr Insulin Aspart (Insulin Aspart (Novolog) 100 Unit/Ml Vial) 0 unit SQ ACHS [facility]; Protocol Last Admin: 11/28/22 17:05 Dose: 2 unit Metoprolol Succinate (Metoprolol Succinate (Er) 25 Mg Tab.Er.24h) 25 mg PO DAILY [facility] Last Admin: 11/28/22 08:04 Dose: 25 mg Midodrine (Midodrine 5 Mg Tab) 5 mg PO AC-TID [facility] Last Admin: 11/28/22 17:05 Dose: 5 mg Naloxone HCl (Naloxone 0.4 Mg/Ml 1 Ml Vial) 0.2 mg IV Q2M PRN PRN Reason: Opioid Reversal Ondansetron HCl (Ondansetron 4 Mg/2 Ml Vial) 4 mg IVP Q8HR PRN PRN Reason: Nausea And Vomiting Pantoprazole Sodium (Pantoprazole 40 Mg/10 Ml Vial) 40 mg IV DAILY [facility] Last Admin: 11/28/22 08:04 Dose: 40 mg PHYSICAL EXAMINATION: GENERAL: The patient is alert and oriented x3, Thin built. Ill-appearing, extremely elderly-appearing male HEENT: Pupils are round and equally reacting to light. EOMI. No scleral icterus. No conjunctival pallor. Normocephalic, atraumatic. No pharyngeal erythema. No thyromegaly. CARDIOVASCULAR: S1 and S2 muffled Respiratory: Diminished breath sounds bilaterally with some scattered rhonchi noted ABDOMEN: Soft, thin, scaphoid, nontender, nondistended, normoactive bowel sounds. No palpable organomegaly. MUSCULOSKELETAL: No joint swelling or deformity. EXTREMITIES: No cyanosis, clubbing, or pedal edema. NEUROLOGICAL: Gross neurological examination did not reveal any focal deficits. 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 Vascular following and patient underwent CT angiogram as mentioned above and patient is requesting to proceed with surgical intervention. Cardiology had signed off although will require cardiac clearance given patient's significant cardiac history and was re-consulted and pending Vascular to evaluate further for possible stenting due to severe peripheral vascular disease and patient may require amputation Discussed with family at length about overall prognosis and significant comorbidities and daughter who is his caregiver reports he wishes to remain full code and all measures as needed. Patient would like to proceed with surgical intervention Recommend follow-up labs in the a.m. Overall prognosis remains extremely poor and guarded at this time The impression and plan of care has been dictated by Ruth Sue, Nurse Practitioner as directed. Dr. Campos MD I have performed a history and examination and MDM of this patient, discussed the same with the dictator, and agree with the dictator's assessment and plan as written ,documented as a scribe. Based on total visit time, I have performed more than 50% of the visit. Objective - Vital Signs Vital signs: Vital Signs Temp 97.6 F 11/28/22 08:00 Pulse 109 H 11/28/22 11:27 Resp 17 11/28/22 11:27 BP 96/59 11/28/22 11:27 Pulse Ox 100 11/28/22 11:27 FiO2 Intake & Output 11/27/22 11/28/22 11/28/22 18:59 06:59 18:59 Intake Total 620 638 Output Total 1000 450 550 Balance -380 -450 88 Intake: Oral 620 638 Output: Urine 1000 450 550 2-way Urethral 500 Other: Voiding Method Indwelling Catheter Indwelling Catheter Indwelling Catheter - Labs CBC & Chem 7: 11/27/22 08:01 11/28/22 08:33 Labs: Abnormal Lab Results - Last 24 Hours (Table) 11/27/22 11/27/22 11/28/22 Range/Units 16:55 20:09 08:33 Creatinine 1.30 H (0.66-1.25) mg/dL POC Glucose (mg/dL) 155 H 137 H (70-110) mg/dL 11/28/22 Range/Units 11:49 Creatinine (0.66-1.25) mg/dL POC Glucose (mg/dL) 127 H (70-110) mg/dL Microbiology - Last 24 Hours (Table) 11/24/22 23:35 Blood Culture - Preliminary Blood 11/24/22 23:20 Blood Culture - Preliminary Blood
[2022-11-28 20:05] LABS: Glucose,Whole Blood 156 mg/dL (70-110)
--- NOTE | 2022-11-28 22:00 | P.PN ---
Subjective Progress Note Date: 11/27/22 Principal diagnosis: Left diabetic foot wound gangrene Patient is a 72-year-old male with multiple comorbidities include diabetes COPD defibrillation presented to hospital with discoloration of the left foot toes and concern for ischemia and possible cellulitis On today's evaluation that is 11/27/2022, patient remains to be afebrile, the patient pain to the left foot area is currently controlled, no chest pain shortness of cough no problem with diarrhea patient did have an open wound to the forehead after treatment for cancer and denies any symptoms of pain or dr linares the scalp wound Objective - Vital Signs Vital signs: Vital Signs Temp 97.5 F L 11/27/22 08:31 Pulse 106 H 11/27/22 08:31 Resp 20 11/27/22 08:31 BP 104/57 11/27/22 08:31 Pulse Ox 98 11/27/22 08:31 FiO2 Intake & Output 11/26/22 11/27/22 11/27/22 18:59 06:59 18:59 Intake Total 1251 180 Output Total 350 600 500 Balance 901 -600 -320 Intake: Oral 1251 180 Output: Urine 350 600 500 2-way Urethral 600 500 Other: Voiding Method Indwelling Catheter Indwelling Catheter Indwelling Catheter # Bowel Movements 1 - Exam GENERAL DESCRIPTION: An elderly male lying in bed in no distress RESPIRATORY SYSTEM: Unlabored breathing , decreased breath sounds at bases HEART: S1 S2 regular rate and rhythm , ABDOMEN: Soft , no tenderness EXTREMITIES: Left foot is currently dressed no drainage on the dressing - Labs CBC & Chem 7: 11/27/22 08:01 11/28/22 08:33 Labs: Abnormal Lab Results - Last 24 Hours (Table) 11/26/22 11/26/22 11/27/22 Range/Units 16:24 20:43 08:01 WBC (3.8-10.6) k/uL RBC (4.30-5.90) m/uL Hgb (13.0-17.5) gm/dL MCHC (31.0-37.0) g/dL RDW (11.5-15.5) % Sodium 135 L (137-145) mmol/L Carbon Dioxide 20 L (22-30) mmol/L BUN 74 H (9-20) mg/dL Creatinine 1.34 H (0.66-1.25) mg/dL POC Glucose (mg/dL) 132 H 168 H (70-110) mg/dL 11/27/22 11/27/22 Range/Units 08:01 11:50 WBC 16.7 H (3.8-10.6) k/uL RBC 4.08 L (4.30-5.90) m/uL Hgb 11.6 L (13.0-17.5) gm/dL MCHC 29.6 L (31.0-37.0) g/dL RDW 16.8 H (11.5-15.5) % Sodium (137-145) mmol/L Carbon Dioxide (22-30) mmol/L BUN (9-20) mg/dL Creatinine (0.66-1.25) mg/dL POC Glucose (mg/dL) 136 H (70-110) mg/dL Microbiology - Last 24 Hours (Table) 11/24/22 23:35 Blood Culture - Preliminary Blood 11/24/22 23:20 Blood Culture - Preliminary Blood Assessment and Plan (1) Cellulitis of left foot Current Visit: Yes Status: Acute Code(s): L03.116 - CELLULITIS OF LEFT LOWER LIMB SNOMED Code(s): 759893923 (2) Gangrene of toe of left foot Current Visit: Yes Status: Acute Code(s): I96 - GANGRENE, NOT ELSEWHERE CLASSIFIED SNOMED Code(s): 82325186001791237 (3) Ulcer of left foot Current Visit: Yes Status: Acute Code(s): L97.529 - NON-PRESSURE CHRONIC UL CER OTH PRT LEFT FOOT W UNSP SEVERITY SNOMED Code(s): 776597615 Plan: 1patient presented to hospital with left foot ulceration and discoloration in this patient with a left big toe did have a discoloration and tenderness exposed concerning likely from ischemic etiology underlying cellulitis less likely but not really excluded as we did have elevated white count likely from the gram- positive skin ruthann 2 local wound care to the scalp wound with Aquacel silver dressing change daily 3-patient to continue with Unasyn vascular workup in progress Time with Patient: Less than 30
--- NOTE | 2022-11-28 22:01 | P.PN ---
Subjective Progress Note Date: 11/28/22 Principal diagnosis: Left diabetic foot wound gangrene Patient is a 72-year-old male with multiple comorbidities include diabetes COPD defibrillation presented to hospital with discoloration of the left foot toes and concern for ischemia and possible cellulitis On today's evaluation that is 11/28/2022, patient continues to be afebrile, the patient pain to the left foot area is controlled with current medication, the patient denies chest pain shortness of cough no problem with diarrhea patient did have an open wound to the forehead after treatment for cancer and denies any symptoms of pain or drainage the scalp wound Objective - Vital Signs Vital signs: Vital Signs Temp 97.6 F 11/28/22 08:00 Pulse 110 H 11/28/22 13:17 Resp 17 11/28/22 11:27 BP 96/59 11/28/22 11:27 Pulse Ox 100 11/28/22 11:27 FiO2 Intake & Output 11/27/22 11/28/22 11/28/22 18:59 06:59 18:59 Intake Total 620 638 Output Total 1000 450 550 Balance -380 -450 88 Intake: Oral 620 638 Output: Urine 1000 450 550 2-way Urethral 500 Other: Voiding Method Indwelling Catheter Indwelling Catheter Indwelling Catheter - Exam GENERAL DESCRIPTION: An elderly male lying in bed in no distress RESPIRATORY SYSTEM: Unlabored breathing , decreased breath sounds at bases HEART: S1 S2 regular rate and rhythm , ABDOMEN: Soft , no tenderness EXTREMITIES: Left foot is currently dressed no drainage on the dressing - Labs CBC & Chem 7: 11/27/22 08:01 11/28/22 08:33 Labs: Abnormal Lab Results - Last 24 Hours (Table) 11/27/22 11/27/22 11/28/22 Range/Units 16:55 20:09 08:33 Creatinine 1.30 H (0.66-1.25) mg/dL POC Glucose (mg/dL) 155 H 137 H (70-110) mg/dL 11/28/22 Range/Units 11:49 Creatinine (0.66-1.25) mg/dL POC Glucose (mg/dL) 127 H (70-110) mg/dL Microbiology - Last 24 Hours (Table) 11/24/22 23:35 Blood Culture - Preliminary Blood 11/24/22 23:20 Blood Culture - Preliminary Blood Assessment and Plan (1) Cellulitis of left foot Current Visit: Yes Status: Acute Code(s): L03.116 - CELLULITIS OF LEFT LOWER LIMB SNOMED Code(s): 836836289 (2) Gangrene of toe of left foot Current Visit: Yes Status: Acute Code(s): I96 - GANGRENE, NOT ELSEWHERE CLASSIFIED SNOMED Code(s): 11285848049137260 (3) Ulcer of left foot Current Visit: Yes Status: Acute Code(s): L97.529 - NON-PRESSURE CHRONIC ULCER OTH PRT LEFT FOOT W UNSP SEVERITY SNOMED Code(s): 736652217 Plan: 1patient presented to hospital with left foot ulceration and discoloration in this patient with a left big toe did have a discoloration and tenderness exposed concerning likely from ischemic etiology underlying cellulitis less likely but not really excluded as we did have elevated white count likely from the gram- positive skin ruthann 2 local wound care to the scalp wound with Aquacel silver dressing change daily 3-patient to continue with Unasyn vascular workup did show significant bobby pheral vascular disease and plan as for possible stenting versus amputation
[2022-11-29] MEDS: MIDODRINE 5 MG TAB PO SCH ×3 (05:48→18:18)
[2022-11-29] MEDS: AMPICILLIN-SULBACTAM 3 GM in SODIUM CHLORIDE 0.9% 100 ML IVPB SCH ×3 (05:48→20:44)
[2022-11-29 06:00] LABS: Glucose,Whole Blood 157 mg/dL (70-110)
[2022-11-29] MEDS: INSULIN ASPART (NovoLOG) 100 UNIT/ML VIAL SQ SCH ×4 (06:20→20:42)
[2022-11-29] MEDS: APIXABAN 2.5 MG TABLET PO SCH ×2 (08:08→20:44)
[2022-11-29] MEDS: METOPROLOL SUCCINATE (ER) 25 MG TAB.ER.24H PO SCH (08:08)
[2022-11-29] MEDS: PANTOPRAZOLE 40 MG/10 ML VIAL IV SCH (08:08)
[2022-11-29 08:39] LABS: Anisocytosis Slight; Basophils % (A) 0 %; Eosinophils # (A) 0.2 k/uL (0-0.7); Eosinophils % (A) 2 %; HCT 37.6 % (39.0-53.0); HGB 11.7 gm/dL (13.0-17.5); Hypochromasia Moderate; Lymphocytes # (A) 0.7 k/uL (1.0-4.8); Lymphocytes % (A) 6 %; MCH 29.5 pg (25.0-35.0); MCHC 31.2 g/dL (31.0-37.0); MCV 94.6 fL (80.0-100.0); Monocytes # (A) 0.9 k/uL (0-1.0); Monocytes % (A) 7 %; Neutrophils % (A) 84 %; Platelet Count 212 k/uL (150-450); RBC 3.97 m/uL (4.30-5.90); RDW 16.6 % (11.5-15.5); WBC 11.9 k/uL (3.8-10.6)
--- NOTE | 2022-11-29 10:07 | P.PN ---
Subjective Patient seen in follow-up for acute kidney injury on chronic kidney disease. Renal function stable as of yesterday. Nonoliguric. Oral intake fair. No vomiting or diarrhea. Denies chest pain or shortness of breath. Vital signs are stable. General: No acute distress. HEENT: Head exam is unremarkable. On nasal cannula. LUNGS: No audible rhonchi or wheezes. HEART: Rate and Rhythm are regular. ABDOMEN: Nontender. EXTREMITITES: No edema. Left lower extremity discoloration noted. Objective - Vital Signs Vital signs: Vital Signs Temp 97.5 F L 11/29/22 08:07 Pulse 114 H 11/29/22 08:07 Resp 17 11/29/22 08:07 BP 104/57 11/29/22 08:07 Pulse Ox 100 11/29/22 08:07 FiO2 Intake & Output 11/28/22 11/29/22 11/29/22 18:59 06:59 18:59 Intake Total 1048 100 Output Total 750 700 Balance 298 -700 100 Intake: Oral 1048 100 Output: Urine 750 700 2-way Urethral 400 Other: Voiding Method Indwelling Catheter Indwelling Catheter Indwelling Catheter # Bowel Movements 1 - Labs CBC & Chem 7: 11/29/22 07:40 11/28/22 08:33 Labs: Abnormal Lab Results - Last 24 Hours (Table) 11/28/22 11/28/22 11/28/22 Range/Units 11:49 16:32 19:53 WBC (3.8-10.6) k/uL RBC (4.30-5.90) m/uL Hgb (13.0-17.5) gm/dL Hct (39.0-53.0) % RDW (11.5-15.5) % Neutrophils # (1.3-7.7) k/uL Lymphocytes # (1.0-4.8) k/uL POC Glucose (mg/dL) 127 H 206 H 156 H (70-110) mg/dL 11/29/22 11/29/22 Range/Units 05:55 07:40 WBC 11.9 H (3.8-10.6) k/uL RBC 3.97 L (4.30-5.90) m/uL Hgb 11.7 L (13.0-17.5) gm/dL Hct 37.6 L (39.0-53.0) % RDW 16.6 H (11.5-15.5) % Neutrophils # 10.0 H (1.3-7.7) k/uL Lymphocytes # 0.7 L (1.0-4.8) k/uL POC Glucose (mg/dL) 157 H (70-110) mg/dL Microbiology - Last 24 Hours (Table) 11/24/22 23:35 Blood Culture - Preliminary Blood 11/24/22 23:20 Blood Culture - Preliminary Blood Assessment and Plan Plan: Assessment: 1. Acute kidney injury mostly prerenal secondary to hypotension/hypovolemia improved with IV hydration. GFR now at baseline. No hydronephrosis noted on ultrasound. 2. Chronic kidney disease stage IIIA with baseline creatinine 1.3-1.5 secondary to nephrosclerosis/cardiorenal syndrome. 3. Left foot ulcers/cellulitis and peripheral vascular disease status post CT angiogram 11/27/2022. On antibiotics per ID. 4. Chronic systolic CHF with ejection fraction of 20-25%. 5. Hypotension due to cardiomyopathy maintained on midodrine. Plan: Encourage oral intake. Check chest x-ray. Continue to monitor renal function and urine output. Monitor for contrast- induced acute kidney injury.
--- NOTE | 2022-11-29 10:29 | P.PN ---
Subjective Progress Note Date: 11/29/22 Principal diagnosis: Left lower extremity wounds, peripheral vascular disease Patient is seen and examined today as follow-up. Patient without any acute changes through the night. He remains afebrile. He remains on 2 L nasal cannula with oxygen saturation 100%. He is currently denying any chest pain or shortness of breath. Denies any pain in his legs. Objective - Vital Signs Vital signs: Vital Signs Temp 97.5 F L 11/29/22 08:07 Pulse 114 H 11/29/22 08:07 Resp 17 11/29/22 08:07 BP 104/57 11/29/22 08:07 Pulse Ox 100 11/29/22 08:07 FiO2 Intake & Output 11/28/22 11/29/22 11/29/22 18:59 06:59 18:59 Intake Total 1048 100 Output Total 750 700 Balance 298 -700 100 Intake: Oral 1048 100 Output: Urine 750 700 2-way Urethral 400 Other: Voiding Method Indwelling Catheter Indwelling Catheter Indwelling Catheter # Bowel Movements 1 - Exam General appearance: The patient is alert, oriented, appears in no acute distress. He is frail and thin, chronically ill-appearing HET: Scalp with large defect/wound with oozing. Neck: Supple. Heart: Regular. Lungs: Equal expansion, normal respiratory effort. Abdomen: Soft, thin, nontender, nondistended. Extremities: Warm, no clubbing or edema. Weak femoral pulses bilaterally. No palpable pedal pulses. Right lower extremity DP and PT signals present, left PT signal present. Significant muscular wasting throughout bilateral lower extremi ties. Left foot with multiple areas of eschar on dorsal aspect of foot, tendon exposed at the great toe. No obvious areas of purulent drainage or fluctuance. No malodor. Neurological: No focal deficits. - Labs CBC & Chem 7: 11/29/22 07:40 11/29/22 10:10 Labs: Abnormal Lab Results - Last 24 Hours (Table) 11/28/22 11/28/22 11/28/22 Range/Units 11:49 16:32 19:53 WBC (3.8-10.6) k/uL RBC (4.30-5.90) m/uL Hgb (13.0-17.5) gm/dL Hct (39.0-53.0) % RDW (11.5-15.5) % Neutrophils # (1.3-7.7) k/uL Lymphocytes # (1.0-4.8) k/uL POC Glucose (mg/dL) 127 H 206 H 156 H (70-110) mg/dL 11/29/22 11/29/22 Range/Units 05:55 07:40 WBC 11.9 H (3.8-10.6) k/uL RBC 3.97 L (4.30-5.90) m/uL Hgb 11.7 L (13.0-17.5) gm/dL Hct 37.6 L (39.0-53.0) % RDW 16.6 H (11.5-15.5) % Neutrophils # 10.0 H (1.3-7.7) k/uL Lymphocytes # 0.7 L (1.0-4.8) k/uL POC Glucose (mg/dL) 157 H (70-110) mg/dL Microbiology - Last 24 Hours (Table) 11/24/22 23:35 Blood Culture - Preliminary Blood 11/24/22 23:20 Blood Culture - Preliminary Blood Assessment and Plan Assessment: 1. Occlusion left common iliac artery, occlusion right external iliac artery, bilateral superficial femoral artery occlusion 2. [place] 5 peripheral vascular disease 3. Left lower extremity wounds likely due to arterial insufficiency. No obvious areas of infection 4. Severe significant medical comorbidities including congestive heart failure, nonischemic cardiomyopathy with EF 20-25%, chronic persistent atrial fibrillation, chronic kidney disease 5. Protein calorie malnutrition 6. Skin cancer Plan: CT angiogram with runoff ordered and imaging reviewed by Dr. Kessler with occlusion of left common iliac artery and right external iliac artery as well as bilateral superficial femoral artery. Consider percutaneous iliac stents, this was discussed with the patient and he wants to try to proceed with stenting. It was discussed with patient that if stenting is unable to be performed recommendation would be for a left lower extremity amputation, however patient is a very poor candidate to proceed with surgery and will have a high morbidity and mortality rate due to multiple complex comorbidities. Patient verbalizes understanding. Cardiology states patient has high risk to proceed with intervention, however have cleared patient to undergo percutaneous intervention. Timing to be determined. Later in the day I was notified y case technician that Mr. Hernandes and his daughter had made a decision to go into Hospice care. We will sign off at this time The impression and plan of care has been dictated as directed. Dr. Galeana I performed a history and examination of this patient, discussed the same with the dictator. I agree with the dictator's note ,documented as a scribe. Any a dditional findings or plans will be noted.
--- NOTE | 2022-11-29 10:57 | XR ---
EXAMINATION TYPE: XR chest 1V DATE OF EXAM: 11/29/2022 COMPARISON: 11/25/2022 HISTORY: Shortness of breath TECHNIQUE: Single frontal view of the chest is obtained. FINDINGS: There is no pleural effusion or pneumothorax seen. The cardiac silhouette size is within normal limits. The osseous structures are intact. And coarsened interstitium suggests chronic pulmo nary fibrosis. Diffuse osteopenia with arthropathy of the shoulders. Atherosclerotic change aorta. Th ere is localized nodular density in the lateral margin of the right upper lobe is stable. IMPRESSION: 1. Favor chronic pulmonary fibrosis with persistent area of asymmetric infiltrate right upper lobe. W ould recommend short-term follow-up CT of the chest to exclude a nodule.
[2022-11-29 11:17] LABS: African American GFR (CKD) 63 (>60 ml/min/1.73 sqM); Anion Gap 9 mmol/L; Blood Urea Nitrogen 75 mg/dL (9-20); Calcium 7.7 mg/dL (8.4-10.2); Carbon Dioxide 19 mmol/L (22-30); Chloride 103 mmol/L (98-107); Glucose 105 mg/dL (74-99); Non-African American GFR(CKD) 55 (>60 ml/min/1.73 sqM); Sodium 131 mmol/L (137-145)
--- NOTE | 2022-11-29 11:25 | P.CONS ---
History of Present Illness - Reason for Consult Consult date: 11/29/22 wound care - History of Present Illness This is a 72-year-old gentleman being seen on 3 S. by the wound care center for nonhealing ulcerations to the left lateral calcaneus left lateral malleolus and the left dorsal foot, stage II pressure ulcer left breast and a stage I pressure ulcer right buttocks. Patient also has a ulceration to the scalp that has been managed by dermatology related to cancerous lesions. He is in line to have a skin graft to that site. 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 Discussion for intervention in the future with vascular. Left foot ulcerations have minimal granulation noted with significant amount of nonviable necrotic and slough-like material. Due to the patient's blood flow debridement at this time is not recommended. Review Of Systems: Constitutional: No fever, no chills, no night sweats. No weight change. No weakness, fatigue or lethargy. No daytime sleepiness. Integumentary:reports wounds, no lesions. No rash or pruritus. No unusual bruising. No change in hair or nails. Physical exam: General Appearance: Alert, cooperative, no distress, appears stated age. Skin: See HPI all other Skin color, texture, tugor normal, no rashes or lesions. Neurologic: Alert oriented x3 assessment: 1. arthrosclerosiswith ulceration left heel 2. arthrosclerosis with ulceration left ankle 3. arthrosclerosis with a ulceration left dorsal foot 4. Stage II pressure ulcer left buttocks 5. Stage II pressure ulcer right buttocks 6. Diabetic foot ulcer plan: 1. Left foot: Apply honey gel, dry gauze, rolled gauze and secure with tape. Left buttocks: Apply honey gel and dry gauze. Change dressings Sunday. Right buttocks: Apply triad daily. Return patient every 2 hours. Patient would benefit from advanced wound care and wound care center. Patient was agreeable to an appointment. Thank you for the consultation any questions contact the wound care center DNP note has been reviewed and discussed with Dr. Zepeda and the impression and plan of care has been directed as dictated. Past Medical History Past Medical History: Atrial Fibrillation, COPD, Diabetes Mellitus, Deep Vein Thrombosis (DVT), Pulmonary Embolus (PE) Additional Past Medical History / Comment(s): osteolmyelitis, SKIN CA; urinary retention History of Any Multi-Drug Resistant Organisms: None Reported Past Surgical History: Cholecystectomy Additional Past Surgical History / Comment(s): Lumbar back surgery Past Anesthesia/Blood Transfusion Reactions: Previous Problems w/ Anesthesia Additional Past Anesthesia/Blood Transfusion Reaction / Comm: "Hard to wake up" Past Psychological History: No Psychological Hx Reported Smoking Status: Former smoker Past Alcohol Use History: None Reported Past Drug Use History: None Reported - Past Family History Father Family Medical History: Diabetes Mellitus Medications and Allergies Home Medications Medication Instructions Recorded Confirmed Type Atorvastatin [Lipitor] 40 mg PO DAILY 08/19/22 11/25/22 History Cetirizine HCl 10 mg PO DAILY 08/19/22 11/25/22 History Cyanocobalamin [Vitamin B-12] 500 mcg PO DAILY 08/19/22 11/25/22 History Furosemide [Lasix] 80 mg PO BID 08/19/22 11/25/22 History Montelukast [Singulair] 10 mg PO DAILY 08/19/22 11/25/22 History Apixaban [Eliquis] 5 mg PO BID #60 tab 08/23/22 11/25/22 Rx Dapagliflozin Propanediol [Farxiga] 10 mg PO DAILY #30 tab 08/23/22 11/25/22 Rx Midodrine [ProAmatine] 5 mg PO AC-TID #90 tab 08/23/22 11/25/22 Rx Spironolactone [Aldactone] 12.5 mg PO DAILY #15 tab 08/23/22 11/25/22 Rx Folic Acid 1 mg PO DAILY 11/25/22 11/25/22 History Metoprolol Tartrate [Lopressor] 25 mg PO BID 11/25/22 11/25/22 History cefUROXime axetiL [Ceftin] 500 mg PO BID 11/25/22 11/25/22 History Allergies Allergy/AdvReac Type Severity Reaction Status Date / Time morphine Allergy Unknown Verified 11/25/22 14:37 Physical Exam Vitals: Vital Signs Temp Pulse Resp BP Pulse Ox 11/29/22 08:07 97.5 F L 114 H 17 104/57 100 11/29/22 04:00 98.2 F 70 18 101/60 94 L 11/29/22 02:00 70 18 11/29/22 00:00 86 18 92/60 95 11/28/22 20:00 98.4 F 90 18 94/63 97 11/28/22 15:10 116 H 18 97/58 100 11/28/22 13:17 110 H 11/28/22 11:27 109 H 17 96/59 100 Intake and Output 11/28/22 11/29/22 11/29/22 22:59 06:59 14:59 Intake Total 410 100 Output Total 200 700 Balance 210 -700 100 Intake: Oral 410 100 Output: Urine 200 700 2-way Urethral 400 Other: Voiding Method Indwelling Catheter Indwelling Catheter Indwelling Catheter # Bowel Movements 1 1 Results CBC & Chem 7: 11/29/22 07:40 11/28/22 08:33 Labs: Abnormal Lab Results - Last 24 Hours (Table) 11/28/22 11/28/22 11/28/22 Range/Units 11:49 16:32 19:53 WBC (3.8-10.6) k/uL RBC (4.30-5.90) m/uL Hgb (13.0-17.5) gm/dL Hct (39.0-53.0) % RDW (11.5-15.5) % Neutrophils # (1.3-7.7) k/uL Lymphocytes # (1.0-4.8) k/uL POC Glucose (mg/dL) 127 H 206 H 156 H (70-110) mg/dL 11/29/22 11/29/22 Range/Units 05:55 07:40 WBC 11.9 H (3.8-10.6) k/uL RBC 3.97 L (4.30-5.90) m/uL Hgb 11.7 L (13.0-17.5) gm/dL Hct 37.6 L (39.0-53.0) % RDW 16.6 H (11.5-15.5) % Neutrophils # 10.0 H (1.3-7.7) k/uL Lymphocytes # 0.7 L (1.0-4.8) k/uL POC Glucose (mg/dL) 157 H (70-110) mg/dL Microbiology - Last 24 Hours (Table) 11/24/22 23:35 Blood Culture - Preliminary Blood 11/24/22 23:20 Blood Culture - Preliminary Blood Assessment and Plan (1) Atherosclerosis of [place] arteries of left leg with ulceration of other part of foot Current Visit: Yes Status: Acute Code(s): I70.245 - ATHSCL ELEM ARTERIES OF LEFT LEG W ULCERATION OTH PRT FOOT SNOMED Code(s): 4079801257 (2) Atherosclerosis of [place] artery of left leg with ulceration of ankle Current Visit: Yes Status: Acute Code(s): I70.243 - ATHSCL ELEM ARTERIES OF LEFT LEG W ULCERATION OF ANKLE SNOMED Code(s): 0541268308 (3) Atherosclerosis of [place] arteries of left leg with ulceration of heel and midfoot Current Visit: Yes Status: Acute Code(s): I70.244 - ATHSCL ELEM ART OF LEFT LEG W ULCER OF HEEL AND MIDFOOT SNOMED Code(s): 1895219446 (4) Stage II pressure ulcer of left buttock Current Visit: Yes Status: Acute Code(s): L89.322 - PRESSURE ULCER OF LEFT BUTTOCK, STAGE 2 SNOMED Code(s): 33571594569656 (5) Pressure injury of right buttock, stage 1 Current Visit: Yes Status: Acute Code(s): L89.311 - PRESSURE ULCER OF RIGHT BUTTOCK, STAGE 1 SNOMED Code(s): 21889813389194 (6) Type 2 diabetes mellitus with foot ulcer Current Visit: Yes Status: Acute Code(s): E11.621 - TYPE 2 DIABETES MELLITUS WITH FOOT ULCER; L97.509 - NON-PRESSURE CHRONIC ULCER OTH PRT UNSP FOOT W UNSP SEVERITY SNOMED Code(s): 424449734 (7) Type 2 diabetes mellitus with other skin ulcer Current Visit: Yes Status: Acute Code(s): E11.622 - TYPE 2 DIABETES MELLITUS WITH OTHER SKIN ULCER; L98.499 - NON-PRESSURE CHRONIC ULCER OF SKIN OF SITES W UNSP SEVERITY SNOMED Code(s): 385991807
--- NOTE | 2022-11-29 11:30 | P.PN ---
Subjective Progress Note Date: 11/29/22 The patient is a pleasant 72-year-old gentleman who was known to our service from before currently follows with a sulky driver at [facility] with a past medical history significant for severe nonischemic cardiomyopathy with EF around 20-25% with moderate to severe mitral regurgitation as well as permanent atrial for the patient as well as multiple comorbid conditions was brought to the hospital by his family/daughter for left foot discomfort and changing in the color. This happened about a week ago. The patient and his family noticed black toes on the left side. He started having some discomfort in the left foot as well. No pain in the chest and no shortness of breath and no dizziness or lightheadedness and no feeling of heart racing or fluttering. He is known to have permanent pictures the patient and he stated that he has been compliant with oral anticoagulation. We consulted to see the patient for further evaluation of atrial fibrillation. Currently the patient is height both intensive and his heart rate has been around 100 bpm he was receiving midodrine as an outpatient which I'm going to start. He is also on oral anticoagulation but I am holding on starting that right now because the patient is having bleeding from the cancer on the scalp. He also underwent further evaluation including blood work showed elevated creatinine and he is known to have chronic kidney disease and also elevated liver function tests. 11/26/2022 The patient was seen and evaluated this morning. The heart rate appeared to be under better control after adding small dose of beta carlitos. Going to restart him on a small dose of oral anticoagulation since he has not been having any bl eeding from the scalp. Also he underwent lower extremity is arterial duplex study which was extremely limited but he was seen by the vascular surgery service and deemed to be not a candidate to undergo any further investigation like CT angiogram at this point for that reason I'm going to restart him back on oral anticoagulation. Infectious disease also on the case regarding the left foot ulcer/infection. The pressure appeared to be marginal. From the cardiovascular standpoint of view, I would continue the current medical regimen. 11/29 Reason been asked to reevaluate patient and give surgical clearance as well as vascular surgery is planning for percutaneous iliac stent as he was found to have occlusion of the left common iliac artery and right external iliac artery and bilateral superficial femoral artery occlusions. Patient apparently wants to proceed with this although it has been advised that he is a poor candidate for surgical intervention. Heart rate is between 70 and 110, blood pressure 104/57. Blood work from today reveals WBC 11.9, hemoglobin 11.7. BUN 75 creatinine 1.32. Telemetry is atrial fibrillation with rate controlled currently on eliquis and Toprol-XL at 25 mg daily. The examination the patient has low blood pressure. He is euvolemic. He does have irregular rhythm with a systolic murmur and the left foot appeared to be wrapped. Assessment Acute limb ischemia of the left foot Severe cardiomyopathy appears to be nonischemic Permanent atrial fibrillation with controlled heart rate Hypotension which has improved Elevated liver function tests Acute on chronic renal failure Bleeding from skin cancer on the scalp Plan Continue the current medical regimen Patient is cleared for percutaneous intervention knowing that he is at high risk for any type of procedure. Would avoid all open procedures. Eliquis would need to be held for 1-2 doses prior to procedure if he decides to move forward. Cardiology will sign off and follow on an as-needed basis. Nurse practitioner note has been reviewed, I agree with the documented findings and plan of care. Patient was seen and examined. Objective - Vital Signs Vital signs: Vital Signs Temp 97.5 F L 11/29/22 08:07 Pulse 114 H 11/29/22 08:07 Resp 17 11/29/22 08:07 BP 104/57 11/29/22 08:07 Pulse Ox 100 11/29/22 08:07 FiO2 Intake & Output 11/28/22 11/29/22 11/29/22 18:59 06:59 18:59 Intake Total 1048 Output Total 750 700 Balance 298 -700 Intake: Oral 1048 Output: Urine 750 700 2-way Urethral 400 Other: Voiding Method Indwelling Catheter Indwelling Catheter # Bowel Movements 1 - Labs CBC & Chem 7: 11/29/22 07:40 11/29/22 10:10 Labs: Abnormal Lab Results - Last 24 Hours (Table) 11/28/22 11/28/22 11/28/22 Range/Units 08:33 11:49 16:32 Creatinine 1.30 H (0.66-1.25) mg/dL POC Glucose (mg/dL) 127 H 206 H (70-110) mg/dL 11/28/22 11/29/22 Range/Units 19:53 05:55 Creatinine (0.66-1.25) mg/dL POC Glucose (mg/dL) 156 H 157 H (70-110) mg/dL Microbiology - Last 24 Hours (Table) 11/24/22 23:35 Blood Culture - Preliminary Blood 11/24/22 23:20 Blood Culture - Preliminary Blood
[2022-11-29 11:49] LABS: Glucose,Whole Blood 124 mg/dL (70-110)
[2022-11-29] MEDS: HYDROPHILIC CREAM 180 GM TUBE TOPICAL SCH (14:00)
--- NOTE | 2022-11-29 15:39 | P.PN ---
Subjective Progress Note Date: 11/29/22 Principal diagnosis: Left diabetic foot wound gangrene Patient is a 72-year-old male with multiple comorbidities include diabetes COPD defibrillation presented to hospital with discoloration of the left foot toes and concern for ischemia and possible cellulitis On today's evaluation that is 11/29/2022, patient remains to be afebrile, the patient pain to the left foot area is controlled, the patient denies chest pain shortness of cough no problem with diarrhea patient did have an open wound to the forehead after treatment for cancer and denies any symptoms of pain or drainage the scalp wound, no new symptoms Objective - Vital Signs Vital signs: Vital Signs Temp 97.5 F L 11/29/22 08:07 Pulse 99 11/29/22 11:57 Resp 18 11/29/22 11:57 BP 96/58 11/29/22 11:57 Pulse Ox 100 11/29/22 11:57 FiO2 Intake & Output 11/28/22 11/29/22 11/29/22 18:59 06:59 18:59 Intake Total 1048 300 Output Total 750 700 225 Balance 298 -700 75 Weight 54.431 kg Intake: Oral 1048 300 Output: Urine 750 700 225 2-way Urethral 400 Other: Voiding Method Indwelling Catheter Indwelling Catheter Indwelling Catheter # Bowel Movements 1 - Exam GENERAL DESCRIPTION: An elderly male lying in bed in no distress RESPIRATORY SYSTEM: Unlabored breathing , decreased breath sounds at bases HEART: S1 S2 regular rate and rhythm , ABDOMEN: Soft , no tenderness EXTREMITIES: Left foot is currently dressed no drainage on the dressing - Labs CBC & Chem 7: 11/29/22 07:40 11/29/22 10:10 Labs: Abnormal Lab Results - Last 24 Hours (Table) 11/28/22 11/28/22 11/29/22 Range/Units 16:32 19:53 05:55 WBC (3.8-10.6) k/uL RBC (4.30-5.90) m/uL Hgb (13.0-17.5) gm/dL Hct (39.0-53.0) % RDW (11.5-15.5) % Neutrophils # (1.3-7.7) k/uL Lymphocytes # (1.0-4.8) k/uL Sodium (137-145) mmol/L Carbon Dioxide (22-30) mmol/L BUN (9-20) mg/dL Creatinine (0.66-1.25) mg/dL Glucose (74-99) mg/dL POC Glucose (mg/dL) 206 H 156 H 157 H (70-110) mg/dL Calcium (8.4-10.2) mg/dL 11/29/22 11/29/22 11/29/22 Range/Units 07:40 10:10 11:47 WBC 11.9 H (3.8-10.6) k/uL RBC 3.97 L (4.30-5.90) m/uL Hgb 11.7 L (13.0-17.5) gm/dL Hct 37.6 L (39.0-53.0) % RDW 16.6 H (11.5-15.5) % Neutrophils # 10.0 H (1.3-7.7) k/uL Lymphocytes # 0.7 L (1.0-4.8) k/uL Sodium 131 L (137-145) mmol/L Carbon Dioxide 19 L (22-30) mmol/L BUN 75 H (9-20) mg/dL Creatinine 1.32 H (0.66-1.25) mg/dL Glucose 105 H (74-99) mg/dL POC Glucose (mg/dL) 124 H (70-110) mg/dL Calcium 7.7 L (8.4-10.2) mg/dL Microbiology - Last 24 Hours (Table) 11/24/22 23:35 Blood Culture - Preliminary Blood 11/24/22 23:20 Blood Culture - Preliminary Blood Assessment and Plan (1) Cellulitis of left foot Current Visit: Yes Status: Acute Code(s): L03.116 - CELLULITIS OF LEFT LOWER LIMB SNOMED Code(s): 960901792 (2) Gangrene of toe of left foot Current Visit: Yes Status: Acute Code(s): I96 - GANGRENE, NOT ELSEWHERE CLASSIFIED SNOMED Code(s): 22705781746975511 (3) Ulcer of left foot Current Visit: Yes Status: Acute Code(s): L97.529 - NON-PRESSURE CHRONIC ULCER OTH PRT LEFT FOOT W UNSP SEVERITY SNOMED Code(s): 227086234 Plan: 1patient presented to hospital with left foot ulceration and discoloration in this patient with a left big toe did have a discoloration and tenderness exposed concerning likely from ischemic etiology underlying cellulitis less likely but not really excluded as we did have elevated white count likely from the gram-positive skin ruhtann 2 local wound care to the scalp wound with Aquacel silver dressing change daily 3-patient white count is down to 11,000, patient to continue with Unasyn and consider oral Augmentin on discharge if no surgical plan per vascular at this point
--- NOTE | 2022-11-29 16:24 | P.PN ---
Subjective Progress Note Date: 11/29/22 72-year-old male with severe non- ischemic cardiomyopathy with the EF of around 20-25% came in with the complaints of cyanosis of the left toe and patient has multiple ulcerations in the left foot. Patient follows up with wound care as an outpatient patient was given a dose of Vanco and cefepime was subsequently admitted. Patient denied any dizziness lightheadedness denied any chest pain patient is a thin built, patient is severely emaciated, denied any chest pain, denied any cough fever chills. 11/26/2022 Heart rate is better controlled patient is being resumed on anticoagulation as there is no more scalp bleeding. The patient is presently not on any Lasix creatinine continued to improve patient is failing euvolemic at this time patient will be closely monitored does have EF of around 20-25%. Patient was evaluated by vascular surgery patient may need amputation patient remains on vancomycin infectious disease evaluated the patient. Serum sodium improved. 11/28/2022 Patient is seen and evaluated in follow-up today with vascular surgery following along with infectious disease. Cardiology was following almost signed off. Patient had CT angiogram with runoff which showed aortoiliac stent graft without evidence of endoleak. Infrarenal abdominal and focal plaque disease with o cclusion of the left common iliac artery shows occlusion of the right external iliac artery. Multifocal disease bilateral SFA left greater than right. On the left multifocal stenosis greater than 70% with occlusion at the midportion. On the right multifocal disease ranging from 50-70% stenosis. Had a lengthy discussion with the patient along with daughter who is his caregiver and addressed CODE STATUS of which patient wishes to remain full code and would like surgical intervention. Daughter also mentioned she does not want her father to go to a rehab and would like him to come home after surgery to continue caring for him. Patient is maintained on IV antibiotics with infectious disease following as well. Kidney functions have improved. Overall patient's prognosis is poor with significant comorbidities making him extremely high risk for surgical intervention. Cardiology has been re-consulted for surgical clearance and will await. Patient is currently afebrile denies chest pain or worsening shortness of breath. No reported nausea or vomiting noted. 11/29/2022 Patient seen and evaluated in follow-up today with multiple medical consultations following including vascular surgery, infectious disease, cardiology. Patient with significant occlusion and peripheral artery disease requesting to proceed with surgical intervention of stenting with possible amputation. Lengthy discussion was had with the family and nursing staff later notified they would like to proceed with hospice and does not want any further treatment. Patient with overall poor prognosis and would likely have high risk for mortality and morbidity and may possibly not survive surgical intervention. Patient is currently afebrile with no reports of chest pain or shortness of breath noted. White count remains elevated although trending down and hemoglobin is stable at 11.7. Sodium is 131 with a potassium of 4.0 and creatinine is 1.32 and blood sugars being monitored. Patient reports to tolera ting diet although not eating much and is extremely cachectic and muscle wasting noted throughout. Review of systems: Constitutional: Denied any fatigue denied any fever. Cardio vascular: denied any chest pain, palpitations Gastrointestinal denied any nausea vomiting Pulmonary: Denied any shortness of breath cough Neurologic reports generalized weakness All inpatient medications were reviewed and appropriate changes in these medications as dictated in the interval history and assessment and plan. Active Medications Albuterol/Ipratropium (Ipratropium-Albuterol 3 Ml Neb) 3 ml INHALATION RT-QID PRN PRN Reason: Shortness Of Breath Or Wheezing Apixaban (Apixaban 2.5 Mg Tablet) 2.5 mg PO BID PENDING SALE TO [facility]; Protocol Last Admin: 11/29/22 08:08 Dose: 2.5 mg Hydromorphone HCl (Hydromorphone 1 Mg/Ml 1 Ml Syringe) 1 mg IVP Q4HR PRN PRN Reason: Pain Last Admin: 11/25/22 02:17 Dose: 1 mg Ampicillin Sodium/Sulbactam (Sodium 3 gm/ Sodium Chloride) 100 mls @ 200 mls/hr IVPB Q8H [facility]; Protocol Last Admin: 11/29/22 05:48 Dose: 200 mls/hr Insulin Aspart (Insulin Aspart (Novolog) 100 Unit/Ml Vial) 0 unit SQ ACHS [facility]; Protocol Last Admin: 11/29/22 12:17 Dose: Not Given Metoprolol Succinate (Metoprolol Succinate (Er) 25 Mg Tab.Er.24h) 25 mg PO DAILY PENDING SALE TO [facility] Last Admin: 11/29/22 08:08 Dose: 25 mg Midodrine (Midodrine 5 Mg Tab) 5 mg PO AC-TID PENDING SALE TO [facility] Last Admin: 11/29/22 12:20 Dose: 5 mg Multi-Ingred Cream/Lotion/Oil/Oint (Hydrophilic Cream 180 Gm Tube) 1 applic TOPICAL DAILY PENDING SALE TO [facility]; Protocol Naloxone HCl (Naloxone 0.4 Mg/Ml 1 Ml Vial) 0.2 mg IV Q2M PRN PRN Reason: Opioid Reversal Ondansetron HCl (Ondansetron 4 Mg/2 Ml Vial) 4 mg IVP Q8HR PRN PRN Reason: Nausea And Vomiting Pantoprazole Sodium (Pantoprazole 40 Mg/10 Ml Vial) 40 mg IV DAILY PENDING SALE TO [facility] Last Admin: 11/29/22 08:08 Dose: 40 mg PHYSICAL EXAMINATION: GENERAL: The patient is alert and oriented x3, Thin built. Cachectic, muscle wasting noted throughout. Ill-appearing, extremely elderly-appearing male HEENT: Pupils are round and equally reacting to light. EOMI. No scleral icterus. No conjunctival pallor. Normocephalic, atraumatic. No pharyngeal erythema. No thyromegaly. CARDIOVASCULAR: S1 and S2 muffled Respiratory: Diminished breath sounds bilaterally with some scattered rhonchi noted ABDOMEN: Soft, thin, scaphoid, nontender, nondistended, normoactive bowel sounds. No palpable organomegaly. MUSCULOSKELETAL: No joint swelling or deformity. EXTREMITIES: No cyanosis, clubbing, or pedal edema. eschar on dorsal aspect of left foot, tendon exposed at the great toe NEUROLOGICAL: Gross neurological examination did not reveal any focal deficits. 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 -Severe peripheral vascular disease -Severe protein calorie malnutrition with a BMI of 17.2 significant muscle wasting noted -Stage II pressure ulcer on the coccyx region, present on admission -Stage II pressure ulcer on the left heel, present on admission -Possible acute urinary tract infection, present on admission -Persistent atrial fibrillation -History of congestive heart failure, systolic dysfunction, EF is 20-25% -Hypotension secondary to CHF and possible hypovolemia -Acute renal failure secondary to hypovolemia and hypotension -Chronic kidney disease stage IV secondary to cardiorenal syndrome -History of hyperlipidemia -GI prophylaxis -DVT prophylaxis -Full code Plan: Recommend continue with antibiotics with infectious disease following. Vascular following and patient underwent CT angiogram as mentioned above and patient is requesting to proceed with surgical intervention. Cardiology reevaluated the patient for surgical clearance deeming the patient has high risk for morbidity and mortality and initially willing to proceed with surgical intervention. Patient and family later discussed and will like to received with possible hospice. Case management consulted hospice and looking for possible hospice house or other options. Overall prognosis remains extremely poor and guarded at this time Possible discharge in the next 24-48 hours The impression and plan of care has been dictated by Ruth Sue, Nurse Practitioner as directed. Dr. Campos MD I have performed a history and examination and MDM of this patient, discussed the same with the dictator, and agree with the dictator's assessment and plan as written ,documented as a scribe. Based on total visit time, I have performed more than 50% of the visit. Objective - Vital Signs Vital signs: Vital Signs Temp 97.5 F L 11/29/22 08:07 Pulse 99 11/29/22 11:57 Resp 18 11/29/22 11:57 BP 96/58 11/29/22 11:57 Pulse Ox 100 11/29/22 11:57 FiO2 Intake & Output 11/28/22 11/29/22 11/29/22 18:59 06:59 18:59 Intake Total 1048 300 Output Total 750 700 225 Balance 298 -700 75 Weight 54.431 kg Intake: Oral 1048 300 Output: Urine 750 700 225 2-way Urethral 400 Other: Voiding Method Indwelling Catheter Indwelling Catheter Indwelling Catheter # Bowel Movements 1 - Labs CBC & Chem 7: 11/29/22 07:40 11/29/22 10:10 Labs: Abnormal Lab Results - Last 24 Hours (Table) 11/28/22 11/28/22 11/29/22 Range/Units 16:32 19:53 05:55 WBC (3.8-10.6) k/uL RBC (4.30-5.90) m/uL Hgb (13.0-17.5) gm/dL Hct (39.0-53.0) % RDW (11.5-15.5) % Neutrophils # (1.3-7.7) k/uL Lymphocytes # (1.0-4.8) k/uL Sodium (137-145) mmol/L Carbon Dioxide (22-30) mmol/L BUN (9-20) mg/dL Creatinine (0.66-1.25) mg/dL Glucose (74-99) mg/dL POC Glucose (mg/dL) 206 H 156 H 157 H (70-110) mg/dL Calcium (8.4-10.2) mg/dL 11/29/22 11/29/22 11/29/22 Range/Units 07:40 10:10 11:47 WBC 11.9 H (3.8-10.6) k/uL RBC 3.97 L (4.30-5.90) m/uL Hgb 11.7 L (13.0-17.5) gm/dL Hct 37.6 L (39.0-53.0) % RDW 16.6 H (11.5-15.5) % Neutrophils # 10.0 H (1.3-7.7) k/uL Lymphocytes # 0.7 L (1.0-4.8) k/uL Sodium 131 L (137-145) mmol/L Carbon Dioxide 19 L (22-30) mmol/L BUN 75 H (9-20) mg/dL Creatinine 1.32 H (0.66-1.25) mg/dL Glucose 105 H (74-99) mg/dL POC Glucose (mg/dL) 124 H (70-110) mg/dL Calcium 7.7 L (8.4-10.2) mg/dL Microbiology - Last 24 Hours (Table) 11/24/22 23:35 Blood Culture - Preliminary Blood 11/24/22 23:20 Blood Culture - Preliminary Blood
[2022-11-29 16:52] LABS: Glucose,Whole Blood 147 mg/dL (70-110)
[2022-11-29 19:54] LABS: Glucose,Whole Blood 130 mg/dL (70-110)
[2022-11-30 00:31] VITALS: TEMP 98.8
[2022-11-30] MEDS: MIDODRINE 5 MG TAB PO SCH ×2 (05:43→13:35)
[2022-11-30] MEDS: AMPICILLIN-SULBACTAM 3 GM in SODIUM CHLORIDE 0.9% 100 ML IVPB SCH (05:43)
[2022-11-30 06:14] LABS: Glucose,Whole Blood 130 mg/dL (70-110)
[2022-11-30] MEDS: INSULIN ASPART (NovoLOG) 100 UNIT/ML VIAL SQ SCH ×2 (06:36→13:35)
[2022-11-30] MEDS: HYDROPHILIC CREAM 180 GM TUBE TOPICAL SCH (08:34)
[2022-11-30] MEDS: APIXABAN 2.5 MG TABLET PO SCH (08:34)
[2022-11-30] MEDS: PANTOPRAZOLE 40 MG/10 ML VIAL IV SCH (08:34)
[2022-11-30] MEDS: METOPROLOL SUCCINATE (ER) 25 MG TAB.ER.24H PO SCH (08:34)
[2022-11-30 09:45] LABS: African American GFR (CKD) 69 (>60 ml/min/1.73 sqM); Anion Gap 9 mmol/L; Blood Urea Nitrogen 66 mg/dL (9-20); Calcium 7.8 mg/dL (8.4-10.2); Carbon Dioxide 19 mmol/L (22-30); Chloride 106 mmol/L (98-107); Glucose 71 mg/dL (74-99); Non-African American GFR(CKD) 60 (>60 ml/min/1.73 sqM); Sodium 134 mmol/L (137-145)
--- NOTE | 2022-11-30 09:56 | P.PN ---
Subjective Patient seen in follow-up for acute kidney injury on chronic kidney disease. Renal function stable as of yesterday. Nonoliguric. Oral intake fair. No vomiting or diarrhea. Denies chest pain or shortness of breath. Vital signs are stable. General: No acute distress. HEENT: Head exam is unremarkable. On nasal cannula. LUNGS: No audible rhonchi or wheezes. HEART: Rate and Rhythm are regular. ABDOMEN: Nontender. EXTREMITITES: No edema. Left lower extremity discoloration noted. Objective - Vital Signs Vital signs: Vital Signs Temp 98.8 F 11/29/22 20:00 Pulse 113 H 11/30/22 08:35 Resp 19 11/30/22 08:35 BP 96/57 11/30/22 08:35 Pulse Ox 100 11/30/22 08:35 FiO2 Intake & Output 11/29/22 11/30/22 11/30/22 18:59 06:59 18:59 Intake Total 300 100 Output Total 225 700 Balance 75 -700 100 Weight 54.431 kg Intake: Oral 300 100 Output: Urine 225 700 Other: Voiding Method Indwelling Catheter Indwelling Catheter Indwelling Catheter # Voids 1 # Bowel Movements 2 1 - Labs CBC & Chem 7: 11/29/22 07:40 11/29/22 10:10 Labs: Abnormal Lab Results - Last 24 Hours (Table) 11/29/22 11/29/22 11/29/22 Range/Units 10:10 11:47 16:51 Sodium 131 L (137-145) mmol/L Carbon Dioxide 19 L (22-30) mmol/L BUN 75 H (9-20) mg/dL Creatinine 1.32 H (0.66-1.25) mg/dL Glucose 105 H (74-99) mg/dL POC Glucose (mg/dL) 124 H 147 H (70-110) mg/dL Calcium 7.7 L (8.4-10.2) mg/dL 11/29/22 11/30/22 Range/Units 19:52 06:00 Sodium (137-145) mmol/L Carbon Dioxide (22-30) mmol/L BUN (9-20) mg/dL Creatinine (0.66-1.25) mg/dL Glucose (74-99) mg/dL POC Glucose (mg/dL) 130 H 130 H (70-110) mg/dL Calcium (8.4-10.2) mg/dL Assessment and Plan Plan: Assessment: 1. Acute kidney injury mostly prerenal secondary to hypotension/hypovolemia improved with IV hydration. GFR now at baseline. No hydronephrosis noted on ultrasound. 2. Chronic kidney disease stage IIIA with baseline creatinine 1.3-1.5 secondary to nephrosclerosis/cardiorenal syndrome. 3. Left foot ulcers/cellulitis and peripheral vascular disease status post CT angiogram 11/27/2022. On antibiotics per ID. 4. Chronic systolic CHF with ejection fraction of 20-25%. 5. Hypotension due to cardiomyopathy maintained on midodrine. Plan: Patient has decided to proceed with hospice. Please call with any questions or concerns
[2022-11-30 09:59] LABS: Potassium 4.3 mmol/L (3.5-5.1)
[2022-11-30 11:35] VITALS: BP 105/57; PULSE 118; RESP 17
[2022-11-30 12:02] LABS: Glucose,Whole Blood 127 mg/dL (70-110)
--- NOTE | 2022-11-30 13:08 | P.PN ---
Subjective Progress Note Date: 11/30/22 Principal diagnosis: Left diabetic foot wound gangrene Patient is a 72-year-old male with multiple comorbidities include diabetes COPD defibrillation presented to hospital with discoloration of the left foot toes and concern for ischemia and possible cellulitis On today's evaluation that is 11/30/2022, patient continues to be afebrile, the patient pain to the left foot area is controlled with the current medication, the patient denies chest pain shortness of cough no problem with diarrhea patient denies any pain to the wound to the scalp, no new symptoms Objective - Vital Signs Vital signs: Vital Signs Temp 98.8 F 11/29/22 20:00 Pulse 113 H 11/30/22 08:35 Resp 19 11/30/22 08:35 BP 96/57 11/30/22 08:35 Pulse Ox 100 11/30/22 08:35 FiO2 Intake & Output 11/29/22 11/30/22 11/30/22 18:59 06:59 18:59 Intake Total 300 100 Output Total 225 700 Balance 75 -700 100 Weight 54.431 kg Intake: Oral 300 100 Output: Urine 225 700 Other: Voiding Method Indwelling Catheter Indwelling Catheter Indwelling Catheter # Voids 1 # Bowel Movements 2 1 - Exam GENERAL DESCRIPTION: An elderly male lying in bed in no distress RESPIRATORY SYSTEM: Unlabored breathing , decreased breath sounds at bases HEART: S1 S2 regular rate and rhythm , ABDOMEN: Soft , no tenderness EXTREMITIES: Left foot is currently dressed no drainage on the dressing - Labs CBC & Chem 7: 11/29/22 07:40 11/30/22 07:50 Labs: Abnormal Lab Results - Last 24 Hours (Table) 11/29/22 11/29/22 11/29/22 Range/Units 10:10 11:47 16:51 Sodium 131 L (137-145) mmol/L Carbon Dioxide 19 L (22-30) mmol/L BUN 75 H (9-20) mg/dL Creatinine 1.32 H (0.66-1.25) mg/dL Glucose 105 H (74-99) mg/dL POC Glucose (mg/dL) 124 H 147 H (70-110) mg/dL Calcium 7.7 L (8.4-10.2) mg/dL 11/29/22 11/30/22 11/30/22 Range/Units 19:52 06:00 07:50 Sodium 134 L (137-145) mmol/L Carbon Dioxide 19 L (22-30) mmol/L BUN 66 H (9-20) mg/dL Creatinine (0.66-1.25) mg/dL Glucose 71 L (74-99) mg/dL POC Glucose (mg/dL) 130 H 130 H (70-110) mg/dL Calcium 7.8 L (8.4-10.2) mg/dL Assessment and Plan (1) Cellulitis of left foot Current Visit: Yes Status: Acute Code(s): L03.116 - CELLULITIS OF LEFT LOWER LIMB SNOMED Code(s): 619301464 (2) Gangrene of toe of left foot Current Visit: Yes Status: Acute Code(s): I96 - GANGRENE, NOT ELSEWHERE CLASSIFIED SNOMED Code(s): 95572069097516075 (3) Ulcer of left foot Current Visit: Yes Status: Acute Code(s): L97.529 - NON-PRESSURE CHRONIC ULCER OTH PRT LEFT FOOT W UNSP SEVERITY SNOMED Code(s): 973568743 Plan: 1patient presented to hospital with left foot ulceration and discoloration in this patient with a left big toe did have a discoloration and tenderness exposed concerning likely from ischemic etiology underlying cellulitis less likely but not really excluded as we did have elevated white count likely from the gram- positive skin ruthann 2 local wound care to the scalp wound with Aquacel silver dressing change daily 3-patient white count is down to 11,000 yesterday no CBC has been done today, patient to continue with Unasyn and consider oral Augmentin on discharge Time with Patient: Less than 30
--- NOTE | 2022-11-30 16:21 | P.DS ---
Providers Date of admission: 11/24/22 22:28 Expected date of discharge: 11/30/22 Attending physician: Sandy Gasca Consults: 11/24/22 22:28 Consult Physician Routine Consulting Provider: Elton Christianson Consult Reason/Comments: [id number] Do you want consulting provider notified?: Yes 11/25/22 09:06 Consult Physician Routine Consulting Provider: Raysa Davis Consult Reason/Comments: LEFT FOOT INFECTION Do you want consulting provider notified?: Yes 11/25/22 11:09 Consult Physician Routine Consulting Provider: Angelic Mark Consult Reason/Comments: Acute on chronic renal failure Do you want consulting provider notified?: Yes 11/28/22 14:37 Consult Physician Routine Consulting Provider: Dami Damon Consult Reason/Comments: cardiac clearance for iliac stenting, possible left BKA Do you want consulting provider notified?: Yes Primary care physician: Tia Sampson Hospital Course: Final diagnosis -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 -Severe peripheral vascular disease -Pneumonia ruled out -Severe protein calorie malnutrition with a BMI of 17.2 significant muscle wasting noted -Stage II pressure ulcer on the coccyx region, present on admission -Stage II pressure ulcer on the left heel, present on admission -Possible acute urinary tract infection, present on admission secondary to chronic indwelling Galeana catheter as patient was being treated outpatient for UTI -Persistent atrial fibrillation -History of congestive heart failure, systolic dysfunction, EF is 20-25% -Hypotension secondary to CHF and possible hypovolemia -Acute renal failure secondary to hypovolemia and hypotension -Chronic kidney disease stage IV secondary to cardiorenal syndrome -History of hyperlipidemia -GI prophylaxis -DVT prophylaxis -No code Discharge disposition Patient is being discharged in a stable condition with guarded prognosis to home with hospice. Patient will follow-up with Dr. Marinelli in the outpatient setting upon discharge. Total time taken is greater than 35 minutes. Hospital course This is a 72-year-old male who was recently admitted with multiple comorbidities including a left diabetic foot wound that was gangrenous with concerns of possible osteomyelitis. Patient with significant severe peripheral vascular disease being followed by vascular surgery. Patient has been cleared by consultations for discharge. Please refer to consultation notes for further HPI. Discussion of possible stenting versus amputation was thoroughly discussed and initially patient was agreeable although he is very high risk for morbidity and mortality and family further discussed and would like to proceed with hospice at home. Arrangements being made for equipment necessary at the home as his daughter lives with him and is his caregiver. Currently no reports of chest pain, shortness of breath, or palpitations. Patient is afebrile. No reports of nausea or vomiting and patient is tolerating diet. Patient will be going home on hospice today. Overall poor prognosis. Physical exam: Gen: This is a 72-year-old male who is awake, alert and oriented 3, thin built, cachectic, ill-appearing, elderly appearing HEENT: Head is atraumatic, normocephalic. Pupils equal, round. Sclerae is anicteric. NECK: Supple. No JVD. No lymphadenopathy. No thyromegaly. LUNGS: Clear to auscultation. No wheezes or rhonchi. No intercostal retractions. HEART: Regular rate and rhythm. No murmur. ABDOMEN: Soft. Scaphoid Bowel sounds are present. No masses. No tenderness. EXTREMITIES: No pedal edema. No calf tenderness. Significant muscle wasting noted on bilateral upper and lower extremities with significant discoloration of the left lower extremity NEUROLOGICAL: Patient is awake, alert and oriented x3. Cranial nerves 2 through 12 are grossly intact. Diffusely weak Please refer to medication reconciliation sheet for a list of medications. The impression and plan of care has been dictated by Ruth Sue, Nurse Practitioner as directed. Dr. Campos MD I have performed a history and examination and MDM of this patient, discussed the same with the dictator, and agree with the dictator's assessment and plan as written ,documented as a scribe. Based on total visit time, I have performed more than 50% of the visit. Patient Condition at Discharge: Poor Plan - Discharge Summary Discharge Rx Participant: Yes New Discharge Prescriptions: New Ipratropium-Albuterol Nebulize [Duoneb 0.5 mg-3 mg/3 ml Soln] 3 ml INHALATION TID PRN #90 each PRN Reason: Wheezing Metoprolol Succinate [Toprol XL] 25 mg PO DAILY 30 Days #15 tab Apixaban [Eliquis] 2.5 mg PO BID tab Continue Cetirizine HCl 10 mg PO DAILY Cyanocobalamin [Vitamin B-12] 500 mcg PO DAILY cefUROXime axetiL [Ceftin] 500 mg PO BID Atorvastatin [Lipitor] 40 mg PO DAILY Furosemide [Lasix] 80 mg PO BID Montelukast [Singulair] 10 mg PO DAILY Spironolactone [Aldactone] 12.5 mg PO DAILY #15 tab Dapagliflozin Propanediol [Farxiga] 10 mg PO DAILY #30 tab Midodrine [ProAmatine] 5 mg PO AC-TID #90 tab Folic Acid 1 mg PO DAILY Discontinued Apixaban [Eliquis] 5 mg PO BID #60 tab Metoprolol Tartrate [Lopressor] 25 mg PO BID Discharge Medication List Atorvastatin [Lipitor] 40 mg PO DAILY 08/19/22 [History] Cetirizine HCl 10 mg PO DAILY 08/19/22 [History] Cyanocobalamin [Vitamin B-12] 500 mcg PO DAILY 08/19/22 [History] Furosemide [Lasix] 80 mg PO BID 08/19/22 [History] Montelukast [Singulair] 10 mg PO DAILY 08/19/22 [History] Dapagliflozin Propanediol [Farxiga] 10 mg PO DAILY #30 tab 08/23/22 [Rx] Midodrine [ProAmatine] 5 mg PO AC-TID #90 tab 08/23/22 [Rx] Spironolactone [Aldactone] 12.5 mg PO DAILY #15 tab 08/23/22 [Rx] Folic Acid 1 mg PO DAILY 11/25/22 [History] cefUROXime axetiL [Ceftin] 500 mg PO BID 11/25/22 [History] Apixaban [Eliquis] 2.5 mg PO BID tab 11/30/22 [Rx] Ipratropium-Albuterol Nebulize [Duoneb 0.5 mg-3 mg/3 ml Soln] 3 ml INHALATION TID PRN #90 each 11/30/22 [Rx] Metoprolol Succinate [Toprol XL] 25 mg PO DAILY 30 Days #15 tab 11/30/22 [Rx] Follow up Appointment(s)/Referral(s): Tia Sampson MD [Primary Care Provider] - 1-2 days Discharge Disposition: HOME WITH HOSPICE
== END 2022-11-30 17:19 | disposition hospice, home (50) | DRG 299 ==
LOC: EC 21:07 → 3SCARD 22:28
PROVIDERS: ADMIT Hospitalist; ATTEND Hospitalist
DX: E11.52 Type 2 diabetes mellitus with diabetic peripheral angiopathy with gangrene (principal); E43 Unspecified severe protein-calorie malnutrition; N39.0 Urinary tract infection, site not specified; T83.511A Infection and inflammatory reaction due to indwelling urethral catheter, initial encounter; I70.262 Atherosclerosis of native arteries of extremities with gangrene, left leg; L97.329 Non-pressure chronic ulcer of left ankle with unspecified severity; Z68.1 Body mass index [BMI] 19.9 or less, adult; I13.0 Hypertensive heart and chronic kidney disease with heart failure and stage 1 through stage 4 chronic kidney disease, or unspecified chronic kidney disease; I42.8 Other cardiomyopathies; I48.21 Permanent atrial fibrillation; I50.22 Chronic systolic (congestive) heart failure; L03.116 Cellulitis of left lower limb; N17.9 Acute kidney failure, unspecified; N18.4 Chronic kidney disease, stage 4 (severe); L97.529 Non-pressure chronic ulcer of other part of left foot with unspecified severity; Z51.5 Encounter for palliative care; Z66 Do not resuscitate; E11.621 Type 2 diabetes mellitus with foot ulcer; E11.22 Type 2 diabetes mellitus with diabetic chronic kidney disease; C44.40 Unspecified malignant neoplasm of skin of scalp and neck; I95.9 Hypotension, unspecified; L89.152 Pressure ulcer of sacral region, stage 2; L89.622 Pressure ulcer of left heel, stage 2; L89.322 Pressure ulcer of left buttock, stage 2; L89.312 Pressure ulcer of right buttock, stage 2; E11.628 Type 2 diabetes mellitus with other skin complications; E11.622 Type 2 diabetes mellitus with other skin ulcer; I70.203 Unspecified atherosclerosis of native arteries of extremities, bilateral legs; J44.9 Chronic obstructive pulmonary disease, unspecified; I34.0 Nonrheumatic mitral (valve) insufficiency; E78.5 Hyperlipidemia, unspecified; E86.1 Hypovolemia; Y84.6 Urinary catheterization as the cause of abnormal reaction of the patient, or of later complication, without mention of misadventure at the time of the procedure; Z79.01 Long term (current) use of anticoagulants; Z79.84 Long term (current) use of oral hypoglycemic drugs; Z79.899 Other long term (current) drug therapy; Z83.3 Family history of diabetes mellitus; Z86.711 Personal history of pulmonary embolism; Z87.891 Personal history of nicotine dependence; Z71.3 Dietary counseling and surveillance; Z88.5 Allergy status to narcotic agent; Z28.310 Unvaccinated for COVID-19; Z28.21 Immunization not carried out because of patient refusal
CPT/HCPCS: 71045; 75635; 76770; 80048; 80053; 80202; 81001; 82565; 83605; 83735; 83880; 84100; 84484; 85025; 85027; 85610; 85730; 87040; 87086; 93922; 94760; 96365; 96366; 96375; 99291